=== PATIENT | female | born 1960 | race Caucasian/White ===

== ENCOUNTER 2025-02-17 05:28 | Emergency (ER) | payer MEDICAID, SELFPAY ==
[~2025-02-17] VITALS: Ht 165.1 cm; Wt 74.8 kg
--- NOTE | 2025-02-17 06:51 | ED.PDOC ---
Musculoskeletal HPI Comments A 65 YEAR OLD FEMALE PRESENTS TO THE ED WITH COMPLAINT OF RIGHT 4TH AND 5TH TOE PAIN. PATIENT STATES SHE WAS WALKING IN NOSE 2 WEEKS AGO AND SHE ACCIDENTALLY HIT HER RIGHT 4TH AND 5TH TOE ON A METAL POLE IN HER HOUSE. PATIENT REPORTS SHE IS NOW EXPERIENCING PAIN AND SWELLING TO HER RIGHT 4TH AND 5TH TOE. PATIENT DENIES FEVER, CHILLS, SHORTNESS OF BREATH, CHEST PAIN, ABDOMINAL PAIN, NAUSEA, VOMITING, HEADACHE, OR OTHER COMPLAINTS. NO OTHER SYMPTOMS OR MODIFYING FACTORS AT THIS TIME. PATIENT IS ALERT, ORIENTED X 4, AND HAS STEADY GAIT. Chief Complaint: Lower Extremity Time Seen by MD: 06:29 Primary Care Provider: AZAEL FARLEY Reviewed Notes: Nurses Notes, Medications, Allergies Allergies: Coded Allergies: Tetanus Toxoid (Verified Allergy, Unknown, 03/25/15) Uncoded Allergies: LATEX BANDAIDS (Allergy, Unknown, 03/25/15) Home Meds Active Scripts Ibuprofen (Ibuprofen) 800 Mg Tab, 1 TAB PO TID, #30 TAB Prov:FAUSTINA CHAVARRIA 02/17/25 Information Source: Patient Mode of Arrival: Ambulatory Location: Right Extremity Location: Foot, Little Toe, Toe 4 Timing: Weeks Prehospital treatment: None Severity: Moderate Able to Move Extremity: Yes Bear Weight: Fully Pain: Moderate Mechanism: Blunt Trauma Circumstances: Accident Onset of Symptoms: After Trauma Symptoms: Swelling, Pain DVT Risk Factors: NONE Last Tetanus: UTD, Unknown Associated signs and symptoms: None Past Medical History PAST MEDICAL HISTORY: Denies Surgical History: Appendectomy, Hysterectomy, Tonsillectomy DIRECTOR ADVANCED History: No Pertinent DIRECTOR ADVANCED History Family History Family History: Reviewed,noncontributory to illness Social History Smoker: Cigarettes Alcohol: Denies ETOH Use Drugs: Denies Drug Use Lives In: Home Constitutional: denies: chills, diaphoresis, fatigue, fever, malaise, sweats, weakness, others EENTM: denies: blurred vision, double vision, ear bleeding, ear discharge, ear drainage, ear pain, ear ringing, eye pain, eye redness, hearing loss, mouth pain, mouth swelling, nasal discharge, nose bleeding, nose congestion, nose pain, photophobia, tearing, throat pain, throat swelling, voice changes, others Respiratory: denies: cough, hemoptysis, orthopnea, SOB at rest, shortness of breath, SOB with excertion, stridor, wheezing, others Cardiovascular: denies: chest pain, dizzy spells, diaphoresis, Dyspnea on exertion, edema, irregular heart beat, left arm pain, lightheadedness, palpitations, PND, syncope, others Gastrointestinal: denies: abdomen distended, abdominal pain, blood streaked bowels, constipated, diarrhea, dysphagia, difficulty swallowing, hematemesis, melena, nausea, poor appetite, poor fluid intake, rectal bleeding, rectal pain, vomiting, others Genitourinary: denies: abnormal vagina bleeding, burning, dyspareunia, dysuria, flank pain, frequency, hematuria, incontinence, pain, , vagina discharge, urgency, others Neurological: denies: dizziness, fainting, headache, left sided numbness, left sided weakness, numbness, paresthesia, pre-existing deficit, right sided numbness, right sided weakness, seizure, speech problems, tingling, tremors, weakness, others Musculoskeletal: reports: others (RIGHT 4TH AND 5TH TOE PAIN WITH SWELLING); denies: back pain, gout, joint pain, joint swelling, muscle pain, muscle stiffness, neck pain Integumetry: reports: bruises; denies: change in color, change in hair/nails, dryness, laceration, lesions, lumps, rash, wounds, others Allergic/Immunocompromised: denies: Difficulty Healing, Frequent Infections, Hives, Itching, others Hematologic/Lymphatic: denies: anemia, blood clots, easy bleeding, easy bruising, swollen glands, others Endocrine: denies: excessive hunger, excessive sweating, excessive thirst, excessive urination, flushing, intolerance to cold, intolerance to heat, unexplained weight gain, unexplained weight loss, others Psychiatric: denies: anxiety, bipolar disorder, depression, hopeless, panic disorder, schizophrenia, sleepless, suicidal, others All Other Systems: Reviewed and Negative Physical Exam General Appearance: No Apparent Distress, Normal HEENT: Normal ENT Inspection, PERRL/EOMI, Pharynx Normal, TMs Normal Neck: Full Range of Motion, Non-Tender, Normal, Normal Inspection Respiratory: Chest Non-Tender, Lungs Clear, No Accessory Muscle Use, No Respiratory Distress, Normal Breath Sounds Cardiovascular: No Edema, No JVD, No Murmur, No Gallop, Normal Peripheral Pulses, Regular Rate/Rhythm Breast Exam: Deferred Gastrointestinal: No Organomegaly, Non Tender, No Pulsatile Mass, Normal Bowel Sounds, Soft Genitalia: Deferred Pelvic: Deferred Rectal: Deferred Extremities: Decreased range of motion, No calf tenderness, Normal capillary refill, No pedal edema, Swelling (BONY TENDERNESS AND CONTUSION ON RIGHT 4TH/5TH TOES, NO DEFORMITY. ), Tender (SWELLING AND CONTUSION ON RIGHT 4TH/5TH TOES, NO OPEN WOUND AND DEFORMITY. ) Musculoskeletal : Apperance: Normal Neurologic: Alert, planer stone II-XII nml as Tested, No Motor Deficits, Normal Affect, Normal Mood, No Sensory Deficits Cerebellar Function: Normal Reflexes: Normal Skin: Bruises (AND SWELLING ON RIGHT 4TH/5TH TOES. ), Dry, Normal Color, Warm Peripheral Pulses: 2+ carotid (R), 2+ carotid (L), 2+ dorsalis pedis (R), 2+ dorsalis pedis (L) Lymphatic: No Adenopathy Was a procedure done? Was a procedure done?: No Differential Diagnosis EXT Differential Diagnosis: Fracture, Sprain, Dislocation, DJD, Contusion, Strain, Arthritis, Bursitis X-Ray, Labs, Meds, VS Vital Signs Date Time Temp Pulse Resp B/P (MAP) Pulse Ox O2 Delivery O2 Flow Rate FiO2 02/17/25 05:36 97.8 83 20 152/62 94 97.8 X-Ray, Labs, Meds, VS Comment EXTERNAL MEDICAL RECORDS REVIEWED: [NONE] INDEPENDENT HISTORIANS: [NONE] SOCIAL DETERMINANTS OF HEALTH: [NONE] LABS ORDERED: NONE REVIEWED AND INTERPRETED RESULTS: NONE IMAGING ORDERED: XR FOOT RT: [INTERPRETED BY ME. NONDISPLACED FRACTURE OF 5TH DISTAL PHALANX. NO DISLOCATION SEEN. PENDING RADIOLOGY REVIEW.] TREATMENTS ORDERED: POSTOPERATIVE SHE WILL APPLIED TO PATIENT'S RIGHT FOOT. PROCEDURES PERFORMED: NONE CRITICAL CARE TIME: NONE I HAVE DISCUSSED THE PATIENT WITH THE ATTENDING PHYSICIAN DR. CASTILLO AND HE AGREES WITH THE PATIENT'S PLAN OF CARE AND DISPOSITION. BASED ON HISTORY OF PRESENT ILLNESS, AND PHYSICAL EXAM, PATIENT WILL BE DISCHARGED HOME. DISCUSSED PLAN FOR DISCHARGE HOME WITH RX [IBUPROFEN 800 MG]. MEDICATION WARNINGS GIVEN. SHARED DECISION MAKING: DISCUSSED WITH PATIENT THAT THEIR WORKUP WAS NORMAL. PATIENT INSTRUCTED TO FOLLOW UP WITH PRIMARY CARE PROVIDER IN 1-2 DAYS FOR RE- EVALUATION OF SYMPTOMS. PATIENT VERBALIZES UNDERSTANDING TO RETURN TO ED FOR NEW OR WORSENING SYMPTOMS OR IF FOLLOW UP WITH PCP CANNOT BE OBTAINED. PATIENT FEELS COMFORTABLE GOING HOME AT THIS TIME. ALL QUESTIONS ADDRESSED AT TIME OF DISCHARGE. Images Reviewed?: Images reviewed and evaluated by me Time of 1ST Reevaluation: 07:20 Reevaluation 1ST: Improved Patient Education/Counseling: Diagnosis, Treatment, Need For Follow Up Family Education/Counseling: Diagnosis, Treatment, Need For Follow Up Medical Screening: No EMC Exist At This Time Departure 1 Departure Time of Disposition: 07:20 Impression: Primary Impression: Closed fracture of fifth toe of right foot Qualified Codes: S92.501A - Displaced unspecified fracture of right lesser toe(s), initial encounter for closed fracture Disposition: HOME / SELF CARE / HOMELESS Condition: Stable Additional Instructions: FOLLOW-UP WITH PCP IN 1 TO 2 DAYS. TAKE MEDICATIONS PRESCRIBED. RETURN TO ED FOR ANY NEW OR WORSENING SYMPTOMS. e-Prescriptions Ibuprofen (Ibuprofen) 800 Mg Tab 1 TAB PO TID, #30 TAB Prov: FAUSTINA CHAVARRIA 02/17/25 Discharged With: Self, Spouse Critical Care Note Critical Care Time?: No Stability Stability form required: No I personally scribed for FAUSTINA CHAVARRIA ([email or web address]) on 02/17/25 at 06:51. Electronically submitted by Srikanth Padilla ([email or web address]). I personally scribed for FAUSTINA CHAVARRIA ([email or web address]) on 02/17/25 at 07:09. Electronically submitted by Srikanth Padilla ([email or web address]). FAUSTINA CHAVARRIA Feb 17, 2025 06:51
[2025-02-17] MEDS ORDERED: IBUP-1456 PO (07:07)
--- NOTE | 2025-02-17 07:15 | DVH ---
CLINICAL INFORMATION: 65 years old, Female; right 4th/5th toe pain post injury 2 weeks ago. TECHNIQUE: 3 views of the right foot were obtained. COMPARISON: None FINDINGS: No acute fracture or dislocation. There is a bipartite tibial sesamoid. Adjacent soft tissu es are unremarkable. IMPRESSION: No evidence of acute bony abnormality.
[2025-02-17 07:20] VITALS: BP 132/70; TEMP 98
[2025-02-17 07:24] VITALS: PULSE 76; RESP 18; O2SAT 94
[2025-02-17] MEDS: IBUPROFEN 800 MG TAB PO ONE (07:24)
== END 2025-02-17 07:32 | disposition home or self-care (01) ==
LOC: ER 05:31
DX: S92.501A Displaced unspecified fracture of right lesser toe(s), initial encounter for closed fracture (principal); F17.210 Nicotine dependence, cigarettes, uncomplicated; Z91.040 Latex allergy status; Z90.710 Acquired absence of both cervix and uterus; Z90.49 Acquired absence of other specified parts of digestive tract; Z88.7 Allergy status to serum and vaccine; W22.8XXA Striking against or struck by other objects, initial encounter; Y93.01 Activity, walking, marching and hiking; Y92.89 Other specified places as the place of occurrence of the external cause; Y99.8 Other external cause status
CPT/HCPCS: 73630

== ENCOUNTER 2025-02-19 20:52 | Inpatient (IN) | payer SELFPAY ==
[~2025-02-19] VITALS: Ht 165.1 cm; Wt 75.0 kg
[~2025-02-19 20:52] MED LIST: IBUP-1456 PO
--- NOTE | 2025-02-19 21:07 | ED.PDOC ---
HPI Comments 65-year-old female who came to ER via EMS for chest pains. Patient has a history of hypertension and diabetes. Around 12 noon today, started experiencing midsternal chest pains, pressure, constant, nonradiating, 8/10 intensity. Persistence prompted patient to come to the ER. She took 325mg of her own aspirin at home. REVIEW OF SYSTEMS: General: No fever, no chills, or fatigue HEENT: No sore throat, no earache, no congestion, no neck pain. Cardiac: Positive chest pain. No palpitations. Lungs: No shortness of breath, no cough. GI: No nausea, no vomiting, no diarrhea, no constipation, no abdominal pain : No dysuria, frequency, or urgency. No hematuria. Musculoskeletal: No joint pain , no joint swelling, no extremity edema. Positive toe injury Skin: No rash, no itching. Neuro: No headache, no dizziness, no weakness PHYSICAL EXAM: General: Awake, alert and oriented. No acute distress. Skin: Skin in warm, dry and intact. Appropriate color for ethnicity. HEENT: The head is normocephalic and atraumatic. Conjunctivae are clear without exudates or hemorrhage. Sclera is non-icteric. EOM are intact. No signs of nystagmus. Eyelids are normal in appearance without swelling or lesions. Oral mucosa is pink and moist Neck: The neck is supple with normal range of motion. No JVD. Cardiac: Heart rate and rhythm are normal. No murmurs, gallops, or rubs are auscultated. Respiratory: No signs of respiratory distress. Lung sounds are clear in all lobes bilaterally without rales, rhonchi, or wheezes. Abdominal: Abdomen is soft, non-tender without distention, guarding or rigidity. Bowel sounds are present and normoactive in all four quadrants. Extremities: Upper and lower extremities are atraumatic in appearance without deformity or edema. Neurological: The patient is awake, alert and oriented to person, place, and time with normal speech. Speech is clear. There is no facial asymmetry. Psychiatric: Appropriate mood and affect. Good judgement and insight. 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 Allergies: Coded Allergies: Tetanus Toxoid (Verified Allergy, Unknown, 03/25/15) Uncoded Allergies: LATEX BANDAIDS (Allergy, Unknown, 03/25/15) Home Meds Active Scripts Ibuprofen (Ibuprofen) 800 Mg Tab, 1 TAB PO TID, #30 TAB Prov:YOJANA CHAVARRIANafisa FRANCO 02/17/25 Information Source: Patient, Emergency Med Personnel Mode of Arrival: EMS Severity: Moderate Timing: Hours Duration: Since onset Prehospital treatment: 12 Lead EKG, ASA, NTG, Oxygen Location: Substernal Radiation: No Radiation Quality: Pressure Cardiac Risk Factors: Hyperlipidemia, HTN, Diabetes Past Medical History PAST MEDICAL HISTORY: DM, High Lipids, HTN Past Medical History (Other): Leukemia Surgical History: Appendectomy, Hysterectomy, Tonsillectomy BUSINESS CONTINUITY STRATEGY DIRECTOR History: No Pertinent BUSINESS CONTINUITY STRATEGY DIRECTOR History Family History Family History: Reviewed,noncontributory to illness Social History Smoker: Cigarettes Alcohol: Denies ETOH Use Drugs: Denies Drug Use Lives In: Home EKG EKG : Pulse Rate (adult): 94 Cardiac Rhythm: NSR Hypertrophy: LVH ST: New, Ant, Lat, Infarct Comments STEMI. ST elevations in II, III, aVF, V2, V3, V4, V5, V6 Was a procedure done? Was a procedure done?: No CP Differential Dx Differential Diagnosis: Angina, Anxiety / Panic Attack, ND, V-Tach, Other Differential Diagnosis: Angina, Chest Wall Pain, Costochondritis, Esophageal reflux/spasm, Gastritis, Myocardial Infarction, Pneumonia, Other X-Ray, Labs, Meds, VS Vital Signs Date Time Temp Pulse Resp B/P (MAP) Pulse Ox O2 Delivery O2 Flow Rate FiO2 02/19/25 21:26 91 19 96 Nasal Cannula* 3 32 02/19/25 21:23 91 18 125/90 02/19/25 21:07 94 02/19/25 21:05 98.2 90 20 135/73 (93) 96 98.2 02/19/25 20:57 98.2 91 21 125/80 (95) 94 98.2 02/19/25 20:54 94 02/19/25 20:52 98.7 95 18 148/92 94 98.7 Lab Test 02/19/25 21:41 02/19/25 20:59 Range/Units Troponin I High Sensitivity 4123 *H 2942 *H </=34 ng/L White Blood Count 39.1 *H 4.4-10.8 10^3/uL Red Blood Count 5.56 H 4.0-5.20 10^6/uL Hemoglobin 15.4 12.2-16.2 g/dL Hematocrit 46.7 H 36.0-46.0 % Mean Corpuscular Volume 83.9 80.0-100.0 fL Mean Corpuscular Hemoglobin 27.7 L 28.0-32.0 pg Mean Corpuscular Hemoglobin Concent 33.0 32.0-36.0 g/dL Red Cell Distribution Width 15.2 H 11.8-14.3 % Platelet Count 306 140-450 10^3/uL Mean Platelet Volume 7.4 6.9-10.8 fL Neutrophils (%) (Auto) 37.0-80.0 % Lymphocytes (%) (Auto) 10.0-50.0 % Monocytes (%) (Auto) 0.0-12.0 % Basophils (%) (Auto) 0.0-2.0 % Neutrophils # (Auto) 1.6-8.6 10 ^3/uL Lymphocytes # (Auto) 0.4-5.4 10 ^3/uL Monocytes # (Auto) 0-1.3 10 ^3/uL Differential Total Cells Counted 100.0 100 Neutrophils % (Manual) 20 L 37.0-80.0 Band Neutrophils % (Manual) 1 Lymphocytes % (Manual) 76 H 10.0-50.0 Monocytes % (Manual) 2 0-12 Eosinophils % (Manual) 1 0-7 Basophils % (Manual) 0 0.0-2.0 Metamyelocytes % (manual) 0 Myelocytes % (Manual) 0 Promyelocytes % (Manual) 0 Blast Cells % (Manual) 0 Reactive Lymphocytes 0 Smudge Cells 47 /100 WBC Platelet Estimate [place] Large Platelets Few Anisocytosis (manual) Slight Microcytosis Slight Macrocytosis Slight Prothrombin Time 10.3 9.3-11.8 sec Prothrombin Time INR 0.97 0.9-1.15 Activated Partial Thromboplast Time 25.9 24.5-34.5 SEC Sodium Level 134 L 136-145 mmol/L Potassium Level 4.3 3.5-5.1 mmol/L Chloride Level 99 98-107 mmol/L Carbon Dioxide Level 27 20-31 mmol/L Anion Gap 8 5-15 Blood Urea Nitrogen 9 9-23 mg/dL Creatinine 0.88 0.550-1.02 mg/dL Glomerular Filtration Rate Calc 73 >90 mL/min BUN/Creatinine Ratio 10.2 10.0-20.0 Serum Glucose 302 H 74-106 mg/dL Hemoglobin A1c 12.1 H <5.7 % A1C Lactic Acid Level Pending Calcium Level 9.6 8.7-10.4 mg/dL Phosphorus Level 3.8 2.4-5.1 mg/dL Magnesium Level 1.8 1.6-2.6 mg/dL Total Bilirubin Pending Direct Bilirubin Pending Aspartate Amino Transferase (AST) Pending Alanine Aminotransferase (ALT) Pending Alkaline Phosphatase Pending B-Type Natriuretic Peptide 122.43 0-100 pg/mL Total Protein Pending Albumin Pending Triglycerides Level 421 H < 150 mg/dL Cholesterol Level 218 H < 200 mg/dL LDL Cholesterol < 100 mg/dL HDL Cholesterol 43 40-59 mg/dL Vitamin B12 Level Pending Vitamin D 25-Hydroxy Pending Thyroid Stimulating Hormone (TSH) Pending Current Medications Medications (Trade) Dose Ordered Sig/Scott Route Start Time Stop Time Status Last Admin Morphine Sulfate 2 mg ONCE ONCE IV 02/19/25 21:00 02/19/25 21:01 DC 02/19/25 21:23 Heparin Sodium (Porcine) 5,000 units ONCE ONCE IV 02/19/25 21:00 02/19/25 21:01 DC 02/19/25 21:23 Time of 1ST Reevaluation: 21:04 Reevaluation 1ST: Unchanged Patient Education/Counseling: Need For Follow Up Family Education/Counseling: No Family Present SEPSIS Sepsis Screen Physician Orders Chest Xray 1 View (02/19/25 20:53) Vital Signs Q1HR (02/19/25 20:53) Saline Lock (02/19/25 20:53) Sql Etl Developer (02/19/25 ) Electrocardigram (02/19/25 21:53) Electrocardigram (02/19/25 23:53) Cl Left Heart Cath (02/19/25 21:25) Vital Signs Date Time Temp Pulse Resp B/P (MAP) Pulse Ox O2 Delivery O2 Flow Rate FiO2 02/19/25 21:26 91 19 96 Nasal Cannula* 3 32 02/19/25 21:23 91 18 125/90 02/19/25 21:07 94 02/19/25 21:05 98.2 90 20 135/73 (93) 96 98.2 02/19/25 20:57 98.2 91 21 125/80 (95) 94 98.2 02/19/25 20:54 94 02/19/25 20:52 98.7 95 18 148/92 94 98.7 Laboratory Tests Test 02/19/25 20:59 Lactic Acid Level Pending White Blood Count 39.1 10^3/uL (4.4-10.8) *H Medications Medications Dose Ordered Sig/Scott Route Start Time Stop Time Status Last Admin Dose Admin Heparin Sodium (Porcine) 5,000 units ONCE ONCE IV 02/19/25 21:00 02/19/25 21:01 DC 02/19/25 21:23 Morphine Sulfate 2 mg ONCE ONCE IV 02/19/25 21:00 02/19/25 21:01 DC 02/19/25 21:23 Departure 1 Departure Time of Disposition: 21:36 Impression: Primary Impression: STEMI (ST elevation myocardial infarction) Disposition: ADMITTED INPATIENT Condition: Serious Comments 65 year old female with inferior lateral STEMI. Code STEMI called promptly after patient's arrival to the ED. Patient stabilized in the ED and sent to cardiac catheterization lab. Extensive evaluation was performed in attempt to identify or rule out: (See differential diagnosis section) The following tests were ordered, and results were reviewed by me and discussed with patient: (See diagnostic results section) The following test were independently interpreted by me: EKG, CXR I reviewed and agreed with the following test results read by other providers: CXR I reviewed the following notes from the pt's past medical encounters: Recent encounter for toe fracture Additional information was gathered from interviewing the following independent historians: EMS personnel Discussion of management or test interpretation with external physician/other qualified health rn primary care: Dr. Grier Addressed an acute or chronic illness that poses a threat to life or bodily function: Acute STEMI Decision regarding hospitalization or escalation of hospital level of care: Risk and benefits of admission for further treatment of patient's condition was considered. Due to patient's current clinical condition, high risk of decline and poor outcome if discharged and need for further inpatient management and monitoring, patient will be admitted to the hospital. Discussed with patient. Drug therapy requiring intensive monitoring for toxicity: IV heparin Parenteral controlled substances: IV morphine Decision regarding emergency major surgery: Yes-emergent cardiac catheterization Critical Care Note Critical Care Time?: Yes (45 min-critical care time only) Critical care comment: STEMI Stability Stability form required: No Heart Score Heart Score: Heart Score Response (Comments) Value History Moderate Suspicious [address]-Deviation 2 Age >65 2 Risk Factors >3 or Hx ASHD 2 Troponin >3 x's Normal limit 2 Total 9 I personally scribed for SURYA RIVERO MD ([email or web address]) on 02/19/25 at 21:07. Electronically submitted by Wilmer Garcia ([email or web address]). I personally scribed for SURYA RIVERO MD ([email or web address]) on 02/19/25 at 21:44. Electronically submitted by Wilmer Garcia ([email or web address]). SURYA RIVERO MD Feb 19, 2025 21:07
[2025-02-19 21:11] LABS: Hematocrit 46.7 % (36.0-46.0); Hemoglobin 15.4 g/dL (12.2-16.2); Mean Corpuscular Hemoglobin 27.7 pg (28.0-32.0); Mean Corpuscular Volume 83.9 fL (80.0-100.0)
--- NOTE | 2025-02-19 21:20 | ECG ---
[facility] Test Date: 2025-02-19 Test Time: 20:54:30 Pat Name: SUMEET BARRIGA Department: Room: 0261 Gender: F [employer] Manager: ELIAN : 1960 Requested By: SURYA RIVERO Order Number: [id number] Reading MD: Roberto Giles Measurements Intervals [place] Rate: 94 P: 29 ID: [id number] QRS: 26 QRSD: 97 T: 62 QT: 356 QTc: 446 Interpretive Statements Sinus rhythm Anterolateral infarct, acute (LAD) Electronically Signed On 02-21-2025 19:17:38 PDT by Roberto Giles Please click the below link to view image of tracing.
[2025-02-19] MEDS: HEPARIN SODIUM (PORCINE) 5000 UNITS/ML 1ML VIAL IV ONE (21:23)
[2025-02-19] MEDS: MORPHINE SULFATE INJ 2 MG/ml SYRG IV ONE (21:23)
[2025-02-19 21:24] LABS: Chloride 99 mmol/L (98-107); Potassium 4.3 mmol/L (3.5-5.1)
[2025-02-19 21:25] LABS: Anion Gap 8 (5-15); Carbon Dioxide 27 mmol/L (20-31)
[2025-02-19 21:26] VITALS: PULSE 91; RESP 19; O2SAT 96
[2025-02-19 21:26] LABS: Calcium 9.6 mg/dL (8.7-10.4)
[2025-02-19 21:27] LABS: Sodium 134 mmol/L (136-145)
--- NOTE | 2025-02-19 21:28 | DVH ---
CHEST RADIOGRAPH Indication: cp Technique: Single frontal view of the chest was obtained COMPARISON: None FINDINGS: Lines and Tubes: None Lungs: Clear Pleura: No effusion. No pneumothorax. Cardiomediastinal contours: Unremarkable Bones: Unremarkable IMPRESSION: 1. No acute disease.
[2025-02-19 21:31] LABS: BUN/Creatinine Ratio 10.2 (10.0-20.0); Blood Urea Nitrogen 9 mg/dL (9-23)
[2025-02-19 21:33] LABS: Glucose 302 mg/dL (74-106)
[2025-02-19] MEDS: ANGIOMAX 250 MG VIAL IV ONE ×2 (21:34→22:48)
[2025-02-19] MEDS: fentaNYL CITRATE 100 MCG/2 ML VL ONE (21:34)
[2025-02-19] MEDS: IODIXANOL 320MG/ML 100ML BTL IV ONE (21:35)
[2025-02-19] MEDS: LIDOCAINE 2%HCL (LOCAL ANESTH.) INJ 20ML MDV ONE (21:35)
[2025-02-19] MEDS: SODIUM CHL 0.9% 0 ML ONE (21:35)
[2025-02-19] MEDS: MIDAZOLAM HCL 2MG/2ML 2ml VIAL (1mg/ml) ONE (21:35)
[2025-02-19 21:47] LABS: Anisocytosis Slight; Macrocytosis Slight; Smudge Cells 47 /100 WBC; Total Cells Counted 100.0 (100)
[2025-02-19 21:54] LABS: INR 0.97 (0.9-1.15); Partial Thromboplastin Time 25.9 SEC (24.5-34.5); Prothrombin Time 10.3 sec (9.3-11.8)
[2025-02-19] MEDS: EPTIFIBATIDE INJ (2MG/ML) 10ML VIAL IV ONE (22:11)
[2025-02-19] MEDS ORDERED: NITROGLYCERIN 0.4 MG SL TAB SL PRN (22:15)
[2025-02-19] MEDS ORDERED: MORPHINE SULFATE INJ 2 MG/ml SYRG IV PRN (22:15)
[2025-02-19] MEDS ORDERED: CLOPIDOGREL BISULFATE 75 MG TAB PO ONE (22:15)
--- NOTE | 2025-02-19 22:29 | DVHHPRES ---
History of Present Illness Resident Creating Document: HANDY LANE History of Present Illness Cass Zhong this is a 65-year-old female patient who presents to ED with chief complaint of retrosternal oppressive chest pain in Functional Class IV which started at 11:00 a.m. today with intensity eight-9/10, radiating towards left ear, with no relieving factors, prompting her visit to the ED at emergency department 8:50 p.m.. Patient reports taking 325 mg of aspirin at home, with no relief of symptoms. Per patient she presented to episodes of this similar pain, two weeks back in both Sundays, which starting Functional Class II and was relieved with rest, and only lasted 1 hour both times. She denies dyspnea, palpitation, syncope in any other associated symptoms. Past medical history: Hypertension, dyslipidemia, diabetes, obesity, leukemia, recent right toe fracture with conservative treatment Surgical history: Hysterectomy, tonsillectomy Family history: Mother has breast cancer. Father has prostate cancer Social history: Lives in [place] with (next of kin) current tobacco abuse (approximately 7.5 pack-year history of smoking). Denies current alcohol and other drug abuse. Allergies: Latex and tetanus shot Home medication: Metoprolol, glipizide, atorvastatin, amlodipine, aspirin, Januvia Patient seen and examined at bedside. Currently she is postop of coronary angiography due to anterolateral STEMI, with placement of one KAYCEE in mid LAD due to complete occlusion (final report pending, right coronary artery has chronic severe disease). Past Medical History Per HPI Past Surgical History Per HPI Family History Per HPI Past Social History Per HPI Review of Systems Review of Systems Per HPI Allergies: Coded Allergies: Tetanus Toxoid (Verified Allergy, Unknown, 03/25/15) Uncoded Allergies: LATEX BANDAIDS (Allergy, Unknown, 03/25/15) Medications Current Medications Medications Dose Ordered Sig/Scott Route Start Time Stop Time Status Last Admin Dose Admin Nitroglycerin 0.4 mg Q5MINP PRN SL 02/19/25 22:15 Morphine Sulfate 2 mg Q30M PRN IV 02/19/25 22:15 Aspirin 81 mg DAILY PO 02/20/25 10:00 Atorvastatin Calcium 80 mg HS PO 02/20/25 22:00 Clopidogrel Bisulfate 75 mg DAILY PO 02/20/25 10:00 Exam Vital Signs Vital Signs Date Time Temp Pulse Resp B/P (MAP) Pulse Ox O2 Delivery O2 Flow Rate FiO2 02/19/25 21:26 91 19 96 Nasal Cannula* 3 32 02/19/25 21:23 125/90 02/19/25 21:05 98.2 98.2 Exam Patient lying in bed, in no acute distress General: Lucid, afebrile, mucosae are moist Cardiovascular: Normal S1 and S2. No murmurs, gallops or rubs Respiratory: Normal ventilation mechanics. Clear lung sounds on auscultation Abdomen: Soft, nontender, no organomegaly, normal bowel sounds MSK/skin: Mobilizes 4 limbs. Skin is dry and warm. Puncture site in right femoral with mild bleeding, no hematoma and no pain on palpation. Neurological: Oriented in 3 spheres. No motor no sensitive deficits. Pupils are isocoric and reactive Labs/Xrays Labs Test 02/19/25 21:41 02/19/25 20:59 Range/Units Troponin I High Sensitivity 4123 *H </=34 ng/L White Blood Count 39.1 *H 4.4-10.8 10^3/uL Red Blood Count 5.56 H 4.0-5.20 10^6/uL Hemoglobin 15.4 12.2-16.2 g/dL Hematocrit 46.7 H 36.0-46.0 % Mean Corpuscular Volume 83.9 80.0-100.0 fL Mean Corpuscular Hemoglobin 27.7 L 28.0-32.0 pg Mean Corpuscular Hemoglobin Concent 33.0 32.0-36.0 g/dL Red Cell Distribution Width 15.2 H 11.8-14.3 % Platelet Count 306 140-450 10^3/uL Mean Platelet Volume 7.4 6.9-10.8 fL Neutrophils (%) (Auto) 37.0-80.0 % Lymphocytes (%) (Auto) 10.0-50.0 % Monocytes (%) (Auto) 0.0-12.0 % Basophils (%) (Auto) 0.0-2.0 % Neutrophils # (Auto) 1.6-8.6 10 ^3/uL Lymphocytes # (Auto) 0.4-5.4 10 ^3/uL Monocytes # (Auto) 0-1.3 10 ^3/uL Differential Total Cells Counted 100.0 100 Neutrophils % (Manual) 20 L 37.0-80.0 Band Neutrophils % (Manual) 1 Lymphocytes % (Manual) 76 H 10.0-50.0 Monocytes % (Manual) 2 0-12 Eosinophils % (Manual) 1 0-7 Basophils % (Manual) 0 0.0-2.0 Metamyelocytes % (manual) 0 Myelocytes % (Manual) 0 Promyelocytes % (Manual) 0 Blast Cells % (Manual) 0 Reactive Lymphocytes 0 Smudge Cells 47 /100 WBC Platelet Estimate [place] Large Platelets Few Anisocytosis (manual) Slight Microcytosis Slight Macrocytosis Slight Prothrombin Time 10.3 9.3-11.8 sec Prothrombin Time INR 0.97 0.9-1.15 Activated Partial Thromboplast Time 25.9 24.5-34.5 SEC Sodium Level 134 L 136-145 mmol/L Potassium Level 4.3 3.5-5.1 mmol/L Chloride Level 99 98-107 mmol/L Carbon Dioxide Level 27 20-31 mmol/L Anion Gap 8 5-15 Blood Urea Nitrogen 9 9-23 mg/dL Creatinine 0.88 0.550-1.02 mg/dL Glomerular Filtration Rate Calc 73 >90 mL/min BUN/Creatinine Ratio 10.2 10.0-20.0 Serum Glucose 302 H 74-106 mg/dL Calcium Level 9.6 8.7-10.4 mg/dL B-Type Natriuretic Peptide 122.43 0-100 pg/mL SEPSIS Sepsis Screen Date sepsis recognized/suspect: Feb 19, 2025 Time Sepsis recognized/suspect: 2124 Recent Procedure: No On Antibiotic Therapy: No Respiratory Rate >20: No Heart Rate >90: Yes Temp<36 C (96.8 F) or >38.3 C: No SBP <90 or MAP <65 mmHG: No New Acute Mental Status Change: No Is the patient on CPAP, BIPAP,: No Physician Orders Chest Xray 1 View (02/19/25 20:53) Vital Signs Q1HR (02/19/25 20:53) Saline Lock (02/19/25 20:53) Bearing Inspector (02/19/25 ) Electrocardigram (02/19/25 21:53) Electrocardigram (02/19/25 23:53) Cl Left Heart Cath (02/19/25 21:25) Admit (02/19/25 22:03) Code Status (02/19/25 22:03) Complete Blood Count (02/20/25 04:00) Comprehensive Metabolic Panel (02/20/25 04:00) Npo (Nothing By Mouth) Diet (02/20/25 Breakfast) Echo 2d Mode Cardiac Dop (02/19/25 22:03) Nitroglycerin Sublingual (Ntrostat Subli (02/19/25 22:15) Morphine Sulfate Injection (02/19/25 22:15) Oxygen By Nasal Cannula (02/19/25 22:03) Stat Ekg For Chest Pain (02/19/25 22:03) Notify Of Changes From Base (02/19/25 22:03) Speech Language Pathologist Travel For 24 Hours (02/19/25 22:03) Emergency Dysrhythmia Protocol (02/19/25 22:03) Rhythm Strips Once Every Shift (02/19/25 22:03) Aspirin Tablet (02/20/25 10:00) Atorvastatin (Lipitor) (02/20/25 22:00) Clopidogrel Bisulfate (Plavix) (02/20/25 10:00) Vitamin D, 25-Hydroxy (02/19/25 22:11) Vitamin B12 (02/19/25 22:11) Urinalysis (02/19/25 22:11) Phosphorus (02/19/25 22:11) Thyroid Stimulating Hormone (02/19/25 22:11) Magnesium (02/19/25 22:11) Lipid Panel (02/19/25 22:11) Lactic Acid W/ Reflex Order (02/19/25 22:11) Hemoglobin A1c (02/19/25 22:11) Drug Screen (02/19/25 22:11) Troponin-I Hs (02/20/25 04:00) Vital Signs Date Time Temp Pulse Resp B/P (MAP) Pulse Ox O2 Delivery O2 Flow Rate FiO2 02/19/25 21:26 91 19 96 Nasal Cannula* 3 32 02/19/25 21:23 91 18 125/90 02/19/25 21:07 94 02/19/25 21:05 98.2 90 20 135/73 (93) 96 98.2 02/19/25 20:57 98.2 91 21 125/80 (95) 94 98.2 02/19/25 20:54 94 02/19/25 20:52 98.7 95 18 148/92 94 98.7 Laboratory Tests Test 02/19/25 20:59 Lactic Acid Level Pending White Blood Count 39.1 10^3/uL (4.4-10.8) *H Medications Medications Dose Ordered Sig/Scott Route Start Time Stop Time Status Last Admin Dose Admin Heparin Sodium (Porcine) 5,000 units ONCE ONCE IV 02/19/25 21:00 02/19/25 21:01 DC 02/19/25 21:23 5,000 UNITS Morphine Sulfate 2 mg ONCE ONCE IV 02/19/25 21:00 02/19/25 21:01 DC 02/19/25 21:23 2 MG Assessment/Plan Assessment/Plan Anterolateral STEMI (Prachi Mccarthy Patient delayed time: 9 hours and 50 minutes, door balloon time: 20 minutes, total ischemia time: 10 hours and 10 minutes) Acute respiratory failure secondary to decompensated CHF [place] decompensated congestive heart failure (unknown LVEF) EKG completed at 8:54 p.m. which showed anterolateral STEMI. Cardiology consulted: Initiated code STEMI. Completed coronary angiography to mid LAD with one KAYCEE (pending final report), procedure completed via right femoral access. Dr. Grier recommended IV antibiotic (cefepime), also recommended evaluation by supervisor chassis assembly due to uncontrolled diabetes. Patient currently on DAPT (aspirin and ticagrelor), atorvastatin and metoprolol Ordered echocardiogram Patient has prolonged total ischemia time, has high-risk of electrical and mechanical complications. Explained in detail to patient these complications, she is currently ICU status. Patient currently on IV furosemide 40 mg b.i.d. Chronic lymphocytic leukemia Leukemoid reaction Patient presents 47 smudge cells, predominant lymphocytic presented (76%) Ordered peripheral smear Transaminitis Monitor Continue with the atorvastatin (discontinue if patient presents symptoms x3 elevation of LFTs or asymptomatic and x5 elevation of LFTs) Recent right hallux fracture Optimize pain management Hypertension Dyslipidemia Diabetes-uncontrolled (hemoglobin A1c 12.1%) Currently indicated Lantus and insulin sliding scale On metoprolol and atorvastatin Gave advice on healthy lifestyle habits Obesity Patient is obese. Recommend evaluating BMI (unlikely 19.6). Have informed nurse Current tobacco abuse Patient has 7.5 pack-year history of smoking. Counseled strongly on cessation Goals of care discussed with patient for over 18 minutes: Full code status Discussed plan with Dr. Yip, patient and nurses: Currently in ICU status, she is at high-risk of electrical and mechanical complications due to prolonged time IV ischemia. She is currently status post PCI with one KAYCEE to mid LAD. Patient has poor prognosis Plan discussed with: Patient, Other (Nurses) My Orders Orders - HANDY LANE RESIDENT Procedure Category Date Status Time Admit ADMIT 02/19/25 Transmitted 22:03 Code Status CODE 02/19/25 Transmitted 22:03 Complete Blood Count LAB 02/20/25 Verified 04:00 Comprehensive LAB 02/20/25 Verified Metabolic Panel 04:00 Npo (Nothing By DIET 02/20/25 Transmitted Mouth) Diet Breakfast Echo 2d Mode Cardiac US 02/19/25 Logged DOP 22:03 Nitroglycerin PHA 02/19/25 In Process Sublingual (Ntrostat 22:15 Morphine Sulfate PHA 02/19/25 In Process Injection 22:15 Oxygen By Nasal RT 02/19/25 Transmitted Cannula 22:03 Stat Ekg For Chest ANAYA 02/19/25 In Process Pain 22:03 Notify Md Of Changes ANAYA 02/19/25 In Process From Base 22:03 Speech Language Pathologist Travel For ANAYA 02/19/25 In Process 24 Hours 22:03 Emergency Dysrhythmia ANAYA 02/19/25 In Process Protocol 22:03 Rhythm Strips Once ANAYA 02/19/25 In Process Every Shift 22:03 Aspirin Tablet PHA 02/20/25 In Process 10:00 Atorvastatin (Lipitor) PHA 02/20/25 In Process 22:00 Clopidogrel Bisulfate PHA 02/20/25 In Process (Plavix) 10:00 Vitamin D, 25-Hydroxy LAB 02/19/25 In Process 22:11 Vitamin B12 LAB 02/19/25 In Process 22:11 Urinalysis LAB 02/19/25 Logged 22:11 Phosphorus LAB 02/19/25 In Process 22:11 Thyroid Stimulating LAB 02/19/25 In Process Hormone 22:11 Magnesium LAB 02/19/25 In Process 22:11 Lipid Panel LAB 02/19/25 In Process 22:11 Lactic Acid W/ Reflex LAB 02/19/25 In Process Order 22:11 Hemoglobin A1c LAB 02/19/25 In Process 22:11 Drug Screen LAB 02/19/25 Logged 22:11 Troponin-I Hs LAB 02/20/25 Verified 04:00 Date of Service: Feb 19, 2025 Billing Provider: JAMIE YIP MD Common Visit Codes: 75021-HVNBABG INP/OBS CARE (HIGH) Secondary Visit Codes: 25725-ALSBTWRG CARE PLAN [address] RESIDENT Feb 19, 2025 22:29
[2025-02-19 22:38] LABS: Magnesium 1.8 mg/dL (1.6-2.6)
[2025-02-19 22:40] LABS: HDL Cholesterol 43 mg/dL (40-59)
[2025-02-19 22:47] LABS: Cholesterol 218 mg/dL (< 200); Triglycerides 421 mg/dL (< 150)
[2025-02-19] MEDS: SODIUM CHL 0.9% 50 ML ONE (22:48)
[2025-02-19] MEDS: TICAGRELOR 90 MG TAB ONE (22:49)
[2025-02-19 22:56] LABS: Alanine Aminotransferase 21 U/L (7-40); Albumin 4.5 g/dL (3.2-4.8); Bilirubin, Total 0.4 mg/dL (0.2-1.0); Total Protein 7.3 g/dL (5.7-8.2)
[2025-02-19 23:01] LABS: Alkaline Phosphatase 200 U/L (46-116); Bilirubin, Direct < 0.1 mg/dL (<0.3)
[2025-02-19] MEDS ORDERED: DEXTROSE (50%) 50ML SYRG IV PRN (23:30)
[2025-02-19] MEDS ORDERED: TICAGRELOR 90 MG TAB PO ONE (23:30)
[2025-02-19 23:46] VITALS: BP 143/82; PULSE 87; RESP 18; TEMP 98; O2SAT 92
[2025-02-20] VITALS (81 sets, daily range): BP systolic 91–164; BP diastolic 46–89; PULSE 78–109; RESP 9–27; TEMP 97.8–99; O2SAT 91–99
--- NOTE | 2025-02-20 | DVHINCON2 ---
Date of service: Feb 19, 2025 Referring Physician Loreta Reason for Consultation STEMI History of Present Illness This is a 65-year-old female with a PMH of DM, High Lipids, HTN who presented to the ED via EMS with complaints of chest pain. Around 12 noon today, started experiencing midsternal chest pains, pressure, constant, nonradiating, 8/10 intensity. Patient took 325mg of her own aspirin at home. WBC 39.1,AST 50, TROP 4123. Chest x-ray showed NAD. EKG consistent with STEMI. Code STEMI was called and I evaluated the patient at bedside within a few minutes. Patient will emergently be taken to label drier and admitted to the ICU. Allergies: Coded Allergies: Tetanus Toxoid (Verified Allergy, Unknown, 03/25/15) Uncoded Allergies: LATEX BANDAIDS (Allergy, Unknown, 03/25/15) Home Meds Active Scripts Ibuprofen (Ibuprofen) 800 Mg Tab, 1 TAB PO TID, #30 TAB Prov:FAUSTINA CHAVARRIA 02/17/25 Current Medications Current Medications Medications (Trade) Dose Ordered Sig/Scott Route PRN Reason Start Time Stop Time Status Last Admin Nitroglycerin (Ntrostat Sublingual) 0.4 mg Q5MINP PRN SL FOR CHEST PAIN 02/19/25 22:15 Morphine Sulfate 2 mg Q30M PRN IV FOR CHEST PAIN 02/19/25 22:15 Aspirin 81 mg DAILY PO 02/20/25 10:00 Atorvastatin Calcium (Lipitor) 80 mg HS PO 02/20/25 22:00 Clopidogrel Bisulfate (Plavix) 75 mg DAILY PO 02/20/25 10:00 02/19/25 23:34 DC Ticagrelor (Brilinta) 90 mg BID PO 02/20/25 10:00 UNV Metoprolol Succinate (Toprol Xl) 25 mg DAILY PO 02/20/25 10:00 UNV Cefepime HCl 50 ml @ 12.5 mls/hr Q8HR IV 02/20/25 06:00 UNV Pantoprazole Sodium (Protonix) 40 mg DAILY IV 02/20/25 10:00 UNV Diagnostic Test (Pha) (Accu-Chek Comfort Curve T) 1 strip ACHS 02/20/25 07:00 UNV Insulin Human Regular (InsuLIN R) HS SC 02/20/25 22:00 UNV Insulin Human Regular (InsuLIN R) AC SC 02/20/25 07:00 UNV Dextrose 50 ml UD PRN IV Blood Sugar LESS THAN 60 02/19/25 23:30 UNV Review of Systems General: No fever, no chills, or fatigue HEENT: No sore throat, no earache, no congestion, no neck pain. Cardiac: Positive chest pain. No palpitations. Lungs: No shortness of breath, no cough. GI: No nausea, no vomiting, no diarrhea, no constipation, no abdominal pain : No dysuria, frequency, or urgency. No hematuria. Musculoskeletal: No joint pain , no joint swelling, no extremity edema. Positive toe injury Skin: No rash, no itching. Neuro: No headache, no dizziness, no weakness Vital Signs Vital Signs Date Time Temp Pulse Resp B/P (MAP) Pulse Ox O2 Delivery O2 Flow Rate FiO2 02/19/25 21:26 91 19 96 Nasal Cannula* 3 32 02/19/25 21:23 125/90 02/19/25 21:05 98.2 98.2 Physical Exam GENERAL: Alert and oriented x 3. No acute distress. EYES: PERRL, EOMI. Anicteric. HENT: Moist mucous membranes. LUNGS: Clear to auscultation bilaterally. CARDIOVASCULAR: Regular rate and rhythm. ABDOMEN: Soft, nontender and nondistended. EXTREMITIES: No edema. NEUROLOGIC: No focal neurological deficits. SKIN: Warm, dry. Labs/Diagnostic Data Labs Test 02/19/25 21:41 02/19/25 20:59 Range/Units Troponin I High Sensitivity 4123 *H </=34 ng/L White Blood Count 39.1 *H 4.4-10.8 10^3/uL Red Blood Count 5.56 H 4.0-5.20 10^6/uL Hemoglobin 15.4 12.2-16.2 g/dL Hematocrit 46.7 H 36.0-46.0 % Mean Corpuscular Volume 83.9 80.0-100.0 fL Mean Corpuscular Hemoglobin 27.7 L 28.0-32.0 pg Mean Corpuscular Hemoglobin Concent 33.0 32.0-36.0 g/dL Red Cell Distribution Width 15.2 H 11.8-14.3 % Platelet Count 306 140-450 10^3/uL Mean Platelet Volume 7.4 6.9-10.8 fL Neutrophils (%) (Auto) 37.0-80.0 % Lymphocytes (%) (Auto) 10.0-50.0 % Monocytes (%) (Auto) 0.0-12.0 % Basophils (%) (Auto) 0.0-2.0 % Neutrophils # (Auto) 1.6-8.6 10 ^3/uL Lymphocytes # (Auto) 0.4-5.4 10 ^3/uL Monocytes # (Auto) 0-1.3 10 ^3/uL Differential Total Cells Counted 100.0 100 Neutrophils % (Manual) 20 L 37.0-80.0 Band Neutrophils % (Manual) 1 Lymphocytes % (Manual) 76 H 10.0-50.0 Monocytes % (Manual) 2 0-12 Eosinophils % (Manual) 1 0-7 Basophils % (Manual) 0 0.0-2.0 Metamyelocytes % (manual) 0 Myelocytes % (Manual) 0 Promyelocytes % (Manual) 0 Blast Cells % (Manual) 0 Reactive Lymphocytes 0 Smudge Cells 47 /100 WBC Platelet Estimate [place] Large Platelets Few Anisocytosis (manual) Slight Microcytosis Slight Macrocytosis Slight Prothrombin Time 10.3 9.3-11.8 sec Prothrombin Time INR 0.97 0.9-1.15 Activated Partial Thromboplast Time 25.9 24.5-34.5 SEC Sodium Level 134 L 136-145 mmol/L Potassium Level 4.3 3.5-5.1 mmol/L Chloride Level 99 98-107 mmol/L Carbon Dioxide Level 27 20-31 mmol/L Anion Gap 8 5-15 Blood Urea Nitrogen 9 9-23 mg/dL Creatinine 0.88 0.550-1.02 mg/dL Glomerular Filtration Rate Calc 73 >90 mL/min BUN/Creatinine Ratio 10.2 10.0-20.0 Serum Glucose 302 H 74-106 mg/dL Hemoglobin A1c 12.1 H <5.7 % A1C Lactic Acid Level 2.0 0.4-2.0 mmol/L Calcium Level 9.6 8.7-10.4 mg/dL Phosphorus Level 3.8 2.4-5.1 mg/dL Magnesium Level 1.8 1.6-2.6 mg/dL Total Bilirubin 0.4 0.2-1.0 mg/dL Direct Bilirubin < 0.1 <0.3 mg/dL Aspartate Amino Transferase (AST) 50 H 13-40 U/L Alanine Aminotransferase (ALT) 21 7-40 U/L Alkaline Phosphatase 200 H 46-116 U/L B-Type Natriuretic Peptide 122.43 0-100 pg/mL Total Protein 7.3 5.7-8.2 g/dL Albumin 4.5 3.2-4.8 g/dL Triglycerides Level 421 H < 150 mg/dL Cholesterol Level 218 H < 200 mg/dL LDL Cholesterol < 100 mg/dL HDL Cholesterol 43 40-59 mg/dL Assessment STEMI. DM. HTN. Plan/Recommendation I agree with your ongoing assessment and care of plan. Emergency cardiac cath. Risks and benefits were discussed with the patient. Echocardiogram. GI prophylactics. IV antibiotics as ordered. Metoprolol, Aspirin,Lipitor, Brilinta. Additional plan as per the hospital course. Critical care time of 90 minutes provided to include time spent evaluation of patient at bedside, when appropriate patient/family education for diagnosis, treatment plan, review of pertinent medical information and discussion of care with specialty providers and PCP. Plan discussed with: Patient JASMIN COREY MD Feb 19, 2025 23:40
--- NOTE | 2025-02-20 00:19 | DVHOP ---
DATE OF SURGERY: 02/19/2025 TECHNIQUES PERFORMED: * Code STEMI. * Insertion of a 6-Guinean arterial line from the right femoral artery under fluoroscopic guidance and supervision. * Left heart cath. * Left ventriculogram. * [place] selective left and right coronary artery angiography. Date of procedure performed 02/19/2025 at about 10:15 p.m. on Friday. INDICATIONS: Acute anterior wall myocardial infarction. DESCRIPTION OF PROCEDURE: Risks and benefits discussed. Counseling done. Questions answered. Brought to the logging rafter laborer urgently. The right femoral area was thoroughly cleaned with soap and Betadine. Lidocaine was given. Under fluoroscopic guidance, with the help of the JR4 catheter, the right coronary angio done. At the end of the procedure, we also did a left heart cath and a left ventriculogram and the procedure was completed. IMPRESSION: * Normal left main. * Left anterior artery at its mid region, 100% acutely blocked, JEANMARIE grade 0 flow. * Septal insert molding operator normal, diagonal artery normal. The circumflex artery is a moderate size, very tortuous and normal. The obtuse marginal artery is normal. The right coronary artery filling retrogradely to the distal one-third region with the help of a left coronary system. The right coronary artery is 100% occluded at the proximal one-third region, JEANMARIE grade 0 flow. The left ventricular ejection fraction is in the range of 30%. The lower half of the anterior wall, apical wall, and apical inferior wall has become akinetic. CONCLUSION: * 100% acute occlusion of the left anterior descending artery at the mid region, JEANMARIE grade 0 flow. * The obtuse marginal artery and circumflex artery are widely opened. The right coronary artery is 100% chronically occluded, filled up retrogradely to the distal one-third region with the help of left coronary system. The ejection fraction is 30%, apical anterior wall akinesis . PLAN OF ACTION: I advised the patient to undergo intervention on the left anterior descending artery. Jonah Grier MD MP/SUB/TUNG TID: [id number] RECEIPT: [id number] [facility]ENTERCatrachito
[2025-02-20] MEDS: METOPROLOL SUCCINATE XL 50 MG TAB PO ONE (00:21)
[2025-02-20] MEDS: ENOXAPARIN SOD 40 MG/0.4 ML SYRINGE SC ONE (00:21)
[2025-02-20] MEDS: PANTOPRAZOLE 40 MG/10 ML VIAL INJ IV ONE (00:22)
[2025-02-20] MEDS: ATORVASTATIN 20 MG TAB PO ONE (00:22)
[2025-02-20] MEDS: CEFEPIME 1GM/50ML 50 ML IV ONE (00:22)
--- NOTE | 2025-02-20 00:37 | DVHOP ---
DATE OF SURGERY: 02/19/2025 TECHNIQUES PERFORMED: * Insertion of a 6-Niuean arterial line from the right femoral artery under fluoroscopic guidance and supervision. * Management of conscious sedation. * Code STEMI. * Left coronary angiography. * Mechanical thrombectomy of the left anterior descending artery with the help of Penumbra catheter. * Balloon angioplasty of the mid region of the left anterior descending artery with 2.5 x 12 mm length semi-compliant balloon. * Stenting and angioplasty of the mid region of the left anterior descending artery with 3.0 x 26 mm length [place] stent of WinAd. * Intravascular ultrasound of the left main and also of the left anterior descending artery stented region. * Balloon angioplasty of the left anterior descending artery stent with 3.0 x 20 mm length noncompliant balloon and made the artery to 3.25 mm in size. * Intracoronary administration of Integrilin 10 mL bolus. * Right iliofemoral artery angiography. * Arteriotomy, Angio-Seal of the right femoral artery. COMPLICATIONS: None. ASSISTANTS: Assisted by our staff here is pedro Mccoy Angie and Steven. INDICATIONS: Acute anterior wall myocardial infarction. DESCRIPTION OF PROCEDURE: As follows: The risks and benefits have been discussed, counseling done, questions answered, information given. A 6-Niuean arterial line was passed. A JL3.5 6-Niuean guiding catheter was passed and Angiomax was started. Thereafter, we put a Runthrough wire, did not go through. We put a balloon 2.5 x 12, able to push wire into the mid distal region of the left anterior descending artery smoothly. Subsequently, we put a balloon, balloon angioplasty done. Subsequently, we put a Penumbra catheter. Mechanical thrombectomy was done. Subsequently, we also put again a balloon 2.5 x 12, balloon angioplasty done in the entire mid region of the left anterior descending artery. Balloon had been discontinued. Subsequently, we gave multiple doses of intracoronary nicardipine and nitroglycerine was given. We put a stent, 3.0 x 26 mm length. Stent was fully deployed, total of 15 atmospheres for 31 seconds followed by 21 seconds. Balloon deflated, balloon had been discontinued. Angiography was done. Subsequently, we did intravascular ultrasound. We found some gap between the stent and media, so we put a 3.0 x 20 mm length noncompliant balloon. Balloon angioplasty of the stent was done, made the artery to 3.25 mm proximally, mid, and distal region of the stent. Balloon deflated, balloon had been discontinued. Angiography was done. The result was satisfactory. There was no complication. Intracoronary administration of 10 mL of Integrilin given. Subsequently, we also did a right iliofemoral artery angiography, arteriotomy, Angio-Seal also done. Procedure went well. CONCLUSION: * Prior to performing the procedure #1, the left anterior descending artery at the mid region 100% acutely occluded, JEANMARIE grade 0 flow. * Postprocedure, JEANMARIE grade 3 flow and residual stenosis is 0%, 100% widely open, no spasm, no dissection, no thrombosis. PLAN OF ACTION: As follows: Advised aspirin, Brilinta, beta-jae, cholesterol-reducing medicine. Trying to reach the family. Jonah Grier MD MP/HEM TID: [id number] RECEIPT: [id number]
[2025-02-20] MEDS: MORPHINE SULFATE INJ 2 MG/ml SYRG IV PRN (02:44)
[2025-02-20 04:53] LABS: Mean Corpuscular Volume 84.6 fL (80.0-100.0)
[2025-02-20 04:56] LABS: Hematocrit 45.3 % (36.0-46.0); Hemoglobin 14.9 g/dL (12.2-16.2); Mean Corpuscular Hemoglobin 27.8 pg (28.0-32.0)
[2025-02-20 05:15] LABS: Albumin 4.1 g/dL (3.2-4.8); Anion Gap 10 (5-15); BUN/Creatinine Ratio 19.4 (10.0-20.0); Bilirubin, Total 0.8 mg/dL (0.2-1.0); Blood Urea Nitrogen 14 mg/dL (9-23); Calcium 9.2 mg/dL (8.7-10.4); Carbon Dioxide 22 mmol/L (20-31); Chloride 103 mmol/L (98-107); HDL Cholesterol 40 mg/dL (40-59); Potassium 4.2 mmol/L (3.5-5.1); Total Protein 6.5 g/dL (5.7-8.2)
[2025-02-20 05:25] LABS: Alanine Aminotransferase 87 U/L (7-40); Alkaline Phosphatase 188 U/L (46-116); Cholesterol 205 mg/dL (< 200); Glucose 300 mg/dL (74-106); Sodium 135 mmol/L (136-145); Triglycerides 482 mg/dL (< 150)
[2025-02-20] MEDS: FUROSEMIDE 40 MG/4 ML VIAL IV SCH (06:27)
[2025-02-20] MEDS: CEFEPIME 1GM/50ML 50 ML IV SCH (06:27)
[2025-02-20 06:39] LABS: Total Cells Counted 100.0 (100)
[2025-02-20 06:58] LABS: Urine Protein, UAD 1+ (Negative)
[2025-02-20] MEDS: InsuLIN REG 1unit/0.01ml Soln (100units/ml) SC SCH (07:00)
[2025-02-20] MEDS: ACCU-CHEK COMFORT CURVE STRIP VI SCH ×2 (07:00→16:25)
[2025-02-20] MEDS: INSULIN LANTUS (GLARGINE) 1 /0.01ml (100units/ml) SC SCH (07:00)
[2025-02-20 07:06] LABS: Opiate Scree,Urine Pos (NEGATIVE)
[2025-02-20 07:07] LABS: Amphetamine Screen, Urine Pos (NEGATIVE); Barbiturate Scree,Urine Neg (NEGATIVE); Benzodiazephine Screen, Urine Pos (NEGATIVE); Cocaine Screen, Urine Neg (NEGATIVE); Phencyclidine Screen, Urine Neg (NEGATIVE)
[2025-02-20 07:08] LABS: Cannabinoid Screen, Urine Neg (NEGATIVE)
--- NOTE | 2025-02-20 08:48 | DVH ---
INDICATION: Evaluate splenomegaly. Patient has smudge cells TECHNIQUE: Multiple real-time sonographic images of the abdomen were obtained. COMPARISON: None FINDINGS: Liver is increased in echogenicity. The liver measures 20.3 cm. No intrahepatic biliary ductal dilatation is noted. The gallbladder wall measures 0.2 cm and is unremarkable. No gallstones or gallbladder sludge. No pericholecystic fluid or edema. The common duct measures 0.5 cm and is unremarkable. The right kidney measures 10.7 cm. No hydronephrosis. The left kidney measures 10.8 cm. No hydronephr osis. The spleen measures 12.0 cm, within normal limits. The echogenicity is within normal limits. The pancreas is not well visualized due to obscuration from bowel gas. The visualized portions of the IVC and aorta are grossly unremarkable. IMPRESSION: Hepatic steatosis and hepatomegaly. Spleen is within normal limits.
[2025-02-20] MEDS: ENOXAPARIN SOD 40 MG/0.4 ML SYRINGE SC SCH (09:48)
[2025-02-20] MEDS: PANTOPRAZOLE 40 MG/10 ML VIAL INJ IV SCH (09:48)
[2025-02-20] MEDS: TICAGRELOR 90 MG TAB PO SCH (09:49)
[2025-02-20] MEDS ORDERED: CLOPIDOGREL BISULFATE 75 MG TAB PO SCH (10:00)
--- NOTE | 2025-02-20 10:41 | DVHPN2 ---
Subjective Patient reporting shortness of breath. Reviewed: Care Plan Changes from previous H/P or p: No Changes General: Per HPI Objective Vitals Vital Signs Date Time Temp Pulse Resp B/P (MAP) Pulse Ox O2 Delivery O2 Flow Rate FiO2 02/20/25 10:08 87 02/20/25 07:30 20 96 Nasal Cannula* 5 40 02/20/25 06:45 147/83 (104) 02/20/25 04:45 98.0 98.0 Intake/Output Intake and Output 02/20/25 07:00 Intake Total 263.5 ml Output Total 400 ml Balance -136.5 ml Intake Oral 220 ml IV Total 43.5 ml Output Urine Total 400 ml General Appearance: Alert, Oriented X3, Cooperative, mild distress HEENT: Atraumatic, PERRLA Lungs: Normal air movement, Other (Nasal cannula at 4 L/min) Cardiovascular: Normal S1, Normal S2, Other (ST elevations noted in anterior lateral leads.) Abdomen: Normal bowel sounds, Soft, No tenderness Genitourinary: No Apparent Abnormalities Musculoskeletal: Normal sensory function, Normal motor function Extremities: Other (Weak pulses bilateral lower extremities. Right foot discoloration) Neuro: Normal gait, Normal speech Skin: Dry, Intact Psych/Mental Status: Mental status NL, Mood NL Medications Current Medications Medications Dose Ordered Sig/Scott Route Start Time Stop Time Status Last Admin Dose Admin Nitroglycerin 0.4 mg Q5MINP PRN SL 02/19/25 22:15 Morphine Sulfate 2 mg Q30M PRN IV 02/19/25 22:15 Aspirin 81 mg DAILY PO 02/20/25 10:00 02/20/25 09:49 81 MG Atorvastatin Calcium 80 mg HS PO 02/20/25 22:00 Ticagrelor 90 mg BID PO 02/20/25 10:00 02/20/25 09:49 90 MG Metoprolol Succinate 25 mg DAILY PO 02/20/25 10:00 Cefepime HCl 50 ml @ 12.5 mls/hr Q8HR IV 02/20/25 06:00 02/20/25 06:27 12.5 MLS/HR Pantoprazole Sodium 40 mg DAILY IV 02/20/25 10:00 02/20/25 09:48 40 MG Diagnostic Test (Pha) 1 strip ACHS 02/20/25 07:00 02/20/25 07:00 1 STRIP Insulin Human Regular HS SC 02/20/25 22:00 Insulin Human Regular AC SC 02/20/25 07:00 02/20/25 07:00 12 UNITS Dextrose 50 ml UD PRN IV 02/19/25 23:30 Enoxaparin Sodium 40 mg DAILY SC 02/20/25 10:00 02/20/25 09:48 40 MG Insulin Glargine 10 units QAM SC 02/20/25 07:00 02/20/25 07:00 10 UNITS Morphine Sulfate 1 mg Q4HP PRN IV 02/20/25 02:30 02/20/25 02:44 1 MG Furosemide 40 mg BIDD IV 02/20/25 06:00 02/20/25 06:27 40 MG Sacubitril/ Valsartan 1 tab BID PO 02/20/25 22:00 UNV Laboratory Results Laboratory Tests 02/20/25 04:28 Chemistry Test 02/19/25 20:59 02/20/25 04:28 Albumin 4.5 g/dL (3.2-4.8) 4.1 g/dL (3.2-4.8) Calcium Level 9.6 mg/dL (8.7-10.4) 9.2 mg/dL (8.7-10.4) Magnesium Level 1.8 mg/dL (1.6-2.6) Phosphorus Level 3.8 mg/dL (2.4-5.1) Total Protein 7.3 g/dL (5.7-8.2) 6.5 g/dL (5.7-8.2) Coagulation Test 02/19/25 20:59 Prothrombin Time 10.3 sec (9.3-11.8) Prothrombin Time INR 0.97 (0.9-1.15) Activated Partial Thromboplast Time 25.9 SEC (24.5-34.5) Lipid panel Test 02/19/25 20:59 02/20/25 04:28 Cholesterol Level 218 mg/dL (< 200) H 205 mg/dL (< 200) H HDL Cholesterol 43 mg/dL (40-59) 40 mg/dL (40-59) Triglycerides Level 421 mg/dL (< 150) H 482 mg/dL (< 150) H Cardiac Markers Test 02/19/25 20:59 B-Type Natriuretic Peptide 122.43 pg/mL (0-100) LFT Test 02/19/25 20:59 02/20/25 04:28 Alanine Aminotransferase (ALT) 21 U/L (7-40) 87 U/L (7-40) H Alkaline Phosphatase 200 U/L (46-116) H 188 U/L (46-116) H Aspartate Amino Transferase (AST) 50 U/L (13-40) H 652 U/L (13-40) H Direct Bilirubin < 0.1 mg/dL (<0.3) Total Bilirubin 0.4 mg/dL (0.2-1.0) 0.8 mg/dL (0.2-1.0) HgA1c, TSH Test 02/19/25 20:59 Hemoglobin A1c 12.1 % A1C (<5.7) H Thyroid Stimulating Hormone (TSH) 1.69 uIU/mL (0.55-4.78) Urinalysis Test 02/20/25 05:30 Urine Color Yellow (Yellow) Urine Clarity Clear (Clear) Urine pH 6.0 (5.0-9.0) Urine Specific [place] > 1.050 (1.001-1.035) Urine Protein 1+ (Negative) H Urine Ketones Trace (Negative) Urine Blood 2+ /uL (Negative) H Urine Nitrite Negative (Negative) Urine Bilirubin Negative (Negative) Urine Urobilinogen Normal mg/dL (Negative) Urine Leukocyte Esterase Negative /uL (Negative) Urine RBC 2 /hpf (0 - 4) Urine Microscopic WBC 1 /HPF (0-5) Urine Squamous Epithelial Cells Few /hpf (<5) Urine Bacteria None seen /hpf (None Seen) Urine Mucus Few (None Seen) Urine Glucose 4+ mg/dL (Normal) H Labs and/or images reviewed: Labs reviewed by me, Image(s) reviewed by me Assessment/Plan Assessment/Plan Impression: -STEMI involving LAD -multivessel coronary artery disease -acute systolic heart failure -diabetes mellitus, uncontrolled -polysubstance abuse including tobacco and amphetamines -rule out right foot fracture -rule out peripheral arterial disease -acute hypoxic respiratory failure -dyslipidemia - probable CLL Plan: -patient is status post thrombectomy and stent placement to LAD. Noted chronic total occlusion of RCA with filling from left system -continue Brilinta and aspirin -continue statin -continue metoprolol, add Entresto -continue cefepime -O2 supplementation to keep saturation greater than 90% -p.r.n. Bronchodilators -right foot x-ray -bilateral lower extremity arterial study -keep patient in ICU overnight -repeat labs in a.m. Critical care time spent with patient discussing and formulating plan of care: 40 minutes. This does not include time spent performing procedures. This medical document was created using an electronic medical record system with [employer] dictation system. Although this document has been carefully reviewed, there may still be some phonetic and typographical errors. These areas are purely typographical due to imperfections of the software programs, and do not reflect any compromise in the patient's medical care. Plan discussed with: Patient, Other (RN) My Orders Orders - NOMI DUNCAN NP Procedure Category Date Status Time Chest Xray 1 View XY 02/20/25 Logged 10:15 Sacubitril-Valsartan PHA 02/20/25 Logged (Entresto 24-26 Mg 22:00 Bilat Low Ext Art US 02/20/25 Transmitted Duplex 10:32 R Foot 3 View Xray XY 02/20/25 Transmitted 10:32 Date of Service: Feb 20, 2025 Billing Provider: NOMI DUNCAN NP Common Visit Codes: 53242-[id number] CARE 30-74 MIN NOMI DUNCAN NP Feb 20, 2025 10:40
[2025-02-20] MEDS: METOPROLOL SUCCINATE XL 50 MG TAB PO SCH (10:46)
--- NOTE | 2025-02-20 11:15 | DVH ---
CHEST RADIOGRAPH Indication: chf Technique: Single frontal view of the chest was obtained Comparison: XY CHEST XRAY 1 VIEW on DOS: 02/19/25 FINDINGS: Lines and Tubes: None Lungs: No focal consolidation. Pleura: No effusion. No pneumothorax. Cardiomediastinal contours: Unremarkable Bones: No acute osseous abnormality. IMPRESSION: 1. No acute cardiopulmonary disease.
--- NOTE | 2025-02-20 12:08 | DVH ---
EXAM: XY R FOOT 3 VIEW XRAY CLINICAL INDICATION: fracture TECHNIQUE: XY R FOOT 3 VIEW XRAY Comparison: XY R FOOT 3 VIEW XRAY on DOS: 02/17/25 FINDINGS/IMPRESSION: There is no evidence of acute fracture or dislocation. The visualized joint space is well maintained. The alignment is anatomical. There is no radiopaque foreign body.
[2025-02-20] MEDS ORDERED: DEXTROSE (50%) 50ML SYRG IV PRN (12:15)
--- NOTE | 2025-02-20 15:14 | DVH ---
BILATERAL Lower Extremity Arterial Duplex Date: 02/20/2025 12:52 PM Clinical History: claudication, rule out PAD Comparison: None Technique: Duplex Doppler evaluation including color Doppler and spectral/pulsed waveform analysis of the lower extremity arteries was performed. Finding: RIGHT: Peak systolic velocities are as follows: TITLE I MATH TUTOR 75 cm/s triphasic Deep femoral 42 cm/s biphasic SFA proximal 42 cm/s biphasic SFA mid-portion 47 cm/s biphasic SFA distal 79 cm/s biphasic Popliteal 34 cm/s monophasic Posterior tibial 6 cm/s monophasic Dorsalis pedis 6 cm/s monophasic The waveforms are triphasic and biphasic above the knee. Monophasic at popliteal artery distally. LEFT: Peak systolic velocities are as follows: TITLE I MATH TUTOR 95 cm/s triphasic Deep femoral 61 cm/s triphasic SFA proximal no flow cm/s SFA mid-portion no flow cm/s SFA distal 80 cm/s monophasic Popliteal 32 cm/s monophasic Posterior tibial 13 cm/s monophasic Dorsalis pedis 4 cm/s monophasic The waveforms are triphasic waveform in the common femoral artery deep femoral artery. No flow noted in the proximal and mid superficial femoral artery. Monophasic waveform noted distally. REFERENCE VALUES, [facility] ([facility]) vascular Imaging Lab Criteria: Peak systolic velocity ranges (in cm/sec) are as follows: <150 cm/s - <20 % stenosis 150-200 cm/s - 20-49% stenosis 200-300 cm/s - 50-75% stenosis >300 cm/s -> 75% stenosis IMPRESSION: 1. Monophasic waveform on the right from the popliteal to the dorsalis pedis 2. On the left triphasic waveform in the common femoral deep femoral artery. No flow seen in the prox imal mid superficial femoral artery monophasic waveform noted distally. 3. No significant focal stenosis is identified.
[2025-02-20] MEDS: INSULIN LISPRO (HUMAN) 100 UNITS/ML ML SC SCH (16:25)
[2025-02-20] MEDS ORDERED: ATOR40TA52 PO (16:30)
[2025-02-20] MEDS ORDERED: GLIP10TA9 PO (16:30)
[2025-02-20] MEDS ORDERED: AMLO1TAB22 PO (16:30)
[2025-02-20] MEDS ORDERED: METO25TA36 PO (16:30)
[2025-02-20] MEDS ORDERED: SITA50TA PO (16:30)
[2025-02-20] MEDS ORDERED: ASPI81CH49 PO (16:30)
--- NOTE | 2025-02-20 16:31 | DVHSR ---
APPROVED REPORT EXAM: LIMITED Two-dimensional and M-mode echocardiogram with Doppler and color Doppler. Blood Pressure: 147/83 mmHg INDICATION STEMI RISK FACTORS Height: 5' 5", Weight: 165 DIMENSIONS LVDd4.4 (3.8-5.7cm)LA (2D)3.8 (1.9-4.0cm)Aortic Root2.4 (2.0-3.7cm) LVDs3.4 (2.5-4.0cm)LA (MM) (1.9-4.0cm)Aortic Cusp Exc1.3 (1.5-2.0cm) EF (%) 45.0 (55-70%)Rt. Atrium3.2 (1.9-4.0cm)Asc. Aorta cm IVSd1.0 (0.7-1.1cm)RV (D) (1.8-2.4cm) PWd0.9 (0.7-1.1cm) Mitral Valve MitralMitral Stenosis E wave0.80m/sMV Mean GR.mmHg A wave0.90m/sMV Peak GR.mmHg E/A ratio0.92D MVAcm2 Aortic Valve Aortic ValveAortic Stenosis V11.50m/Lina Mean GR.8mmHg V21.70m/Lina Peak GR.13mmHg LVOT Diameter2.1 (1.8-2.4cm)Doppler AVA3.05cm2 Other Information Quality : Technically LimitedRhythm : Technically limited study due to body habitus. Conclusion ENTIRE ANTERIOR WALL,LV APEX AND DISTAL HALF OF IVS ARE REMARKBLY HYPOKINETIC LV EF IS IN RANGE OF 35% MODERATE DEGREE LVH AND MODERATE DEGREE LV DIASTOLIC DYSFUNCTION GROSSLY NORMAL VALVES NO EFFUSION NORMAL RV FUNCTION
[2025-02-20] MEDS: NICOTINE 14 MG/24HR TOPICAL PATCH TD ONE (20:42)
[2025-02-20] MEDS ORDERED: InsuLIN REG 1unit/0.01ml Soln (100units/ml) SC SCH (22:00)
[2025-02-20] MEDS: SACUBITRIL-VALSARTAN 24mg/26mg TAB PO SCH (22:55)
[2025-02-20] MEDS: ATORVASTATIN 20 MG TAB PO SCH (22:57)
--- NOTE | 2025-02-20 23:15 | DVHPN2 ---
Progress Note - Dictate Date Seen: Feb 20, 2025 Medical Necessity Reason Pt with a Central, PICC or Fol: No Subjective Patient was seen and evaluated in follow up in the ICU. Patient is on 5 LPM NC. Patient underwent emergency left heart cath, [place] selective left and right coronary artery angiography, left coronary angiography, mechanical thrombectomy of the left anterior descending artery, balloon angioplasty of the mid region of the left anterior descending artery, stenting and angioplasty of the mid region of the left anterior descending artery, balloon angioplasty of the left anterior descending artery stent, intracoronary administration of Integrilin 10 mL bolus. The patient is advised for aspirin, Brilinta, beta-jae, cholesterol-reducing medicine. WBC 38.7, GLUC 370, AST 652, ALT 87, TROP >[id number]. vital signs Vital Sign Date Time Temp Pulse Resp B/P (MAP) Pulse Ox O2 Delivery O2 Flow Rate FiO2 02/20/25 13:15 87 22 120/75 (90) 94 02/20/25 12:00 99.0 99.0 02/20/25 07:30 Nasal Cannula* 5 40 Total Intake and Output 02/19/25 02/19/25 02/20/25 15:00 23:00 07:00 Intake Total 263.5 ml Output Total 400 ml Balance -136.5 ml medications Current Medications Medications Dose Ordered Sig/Scott Route Start Time Stop Time Status Last Admin Dose Admin Nitroglycerin 0.4 mg Q5MINP PRN SL 02/19/25 22:15 Morphine Sulfate 2 mg Q30M PRN IV 02/19/25 22:15 Aspirin 81 mg DAILY PO 02/20/25 10:00 02/20/25 09:49 81 MG Atorvastatin Calcium 80 mg HS PO 02/20/25 22:00 Ticagrelor 90 mg BID PO 02/20/25 10:00 02/20/25 09:49 90 MG Metoprolol Succinate 25 mg DAILY PO 02/20/25 10:00 Cefepime HCl 50 ml @ 12.5 mls/hr Q8HR IV 02/20/25 06:00 02/20/25 06:27 12.5 MLS/HR Pantoprazole Sodium 40 mg DAILY IV 02/20/25 10:00 02/20/25 09:48 40 MG Enoxaparin Sodium 40 mg DAILY SC 02/20/25 10:00 02/20/25 09:48 40 MG Insulin Glargine 10 units QAM SC 02/20/25 07:00 02/20/25 07:00 10 UNITS Morphine Sulfate 1 mg Q4HP PRN IV 02/20/25 02:30 02/20/25 02:44 1 MG Furosemide 40 mg BIDD IV 02/20/25 06:00 02/20/25 06:27 40 MG Sacubitril/ Valsartan 1 tab BID PO 02/20/25 22:00 Diagnostic Test (Pha) 1 strip IQ4HR 02/20/25 16:00 Insulin Human Regular IQ4HR SC 02/20/25 16:00 Dextrose 50 ml UD PRN IV 02/20/25 12:15 objective GENERAL: Alert and oriented x 3. No acute distress. EYES: PERRL, EOMI. Anicteric. HENT: Moist mucous membranes. LUNGS: Clear to auscultation bilaterally. CARDIOVASCULAR: Regular rate and rhythm. ABDOMEN: Soft, nontender and nondistended. EXTREMITIES: No edema. NEUROLOGIC: No focal neurological deficits. SKIN: Warm, dry. laboratory and microbiology Laboratory Tests 02/20/25 04:28 Test 02/20/25 04:28 Range/Units Serum Glucose 300 H 74-106 mg/dL Problem List STEMI. DM. HTN. Assessment/Plan Continued all current supportive medical care. Echocardiogram. Aspirin, Lipitor, Metoprolol, Brilinta. IV antibiotics as ordered. DVT and GI prophylactics. Diuretics with Lasix. Morphine for pain. Entresto. Additional plan as per the hospital course. Critical care time of 45 minutes provided to include time spent evaluation of patient at bedside, when appropriate patient/family education for diagnosis, treatment plan, review of pertinent medical information and discussion of care with specialty providers and PCP. Plan discussed with: Patient JASMIN COREY MD Feb 20, 2025 13:55
[2025-02-21] VITALS (61 sets, daily range): BP systolic 78–157; BP diastolic 24–76; PULSE 86–157; RESP 10–29; TEMP 98–99.4; O2SAT 56–97
[2025-02-21] MEDS: ACCU-CHEK COMFORT CURVE STRIP VI SCH (07:00)
[2025-02-21] MEDS: INSULIN LANTUS (GLARGINE) 1 /0.01ml (100units/ml) SC SCH (07:01)
[2025-02-21] MEDS: INSULIN LISPRO (HUMAN) 100 UNITS/ML ML SC SCH ×3 (07:01→17:35)
[2025-02-21 09:22] LABS: Mean Corpuscular Volume 85.7 fL (80.0-100.0)
[2025-02-21 09:24] LABS: Hematocrit 49.3 % (36.0-46.0); Hemoglobin 16.5 g/dL (12.2-16.2); Mean Corpuscular Hemoglobin 28.7 pg (28.0-32.0)
--- NOTE | 2025-02-21 09:40 | DVHPN2 ---
Subjective Patient reports shortness of breath has improved. Reviewed: Care Plan Changes from previous H/P or p: No Changes General: Per HPI Objective Vitals Vital Signs Date Time Temp Pulse Resp B/P (MAP) Pulse Ox O2 Delivery O2 Flow Rate FiO2 02/21/25 09:30 94 13 88 02/21/25 08:15 98.0 98.0 02/21/25 08:00 Nasal Cannula* 2 28 Intake/Output Intake and Output 02/21/25 07:00 Intake Total 853.0 ml Output Total 1400 ml Balance -547.0 ml Intake Oral 800 ml IV Total 53.0 ml Output Urine Total 1400 ml General Appearance: Alert, Oriented X3, Cooperative, mild distress HEENT: Atraumatic, PERRLA Lungs: Normal air movement, Other (Nasal cannula at 4 L/min) Cardiovascular: Normal S1, Normal S2, Other (ST elevations noted in anterior lateral leads.) Abdomen: Normal bowel sounds, Soft, No tenderness Genitourinary: No Apparent Abnormalities Musculoskeletal: Normal sensory function, Normal motor function Extremities: Other (Weak pulses bilateral lower extremities. Right foot discoloration) Neuro: Normal gait, Normal speech Skin: Dry, Intact Psych/Mental Status: Mental status NL, Mood NL Medications Current Medications Medications Dose Ordered Sig/Scott Route Start Time Stop Time Status Last Admin Dose Admin Nitroglycerin 0.4 mg Q5MINP PRN SL 02/19/25 22:15 Morphine Sulfate 2 mg Q30M PRN IV 02/19/25 22:15 Aspirin 81 mg DAILY PO 02/20/25 10:00 02/20/25 09:49 81 MG Atorvastatin Calcium 80 mg HS PO 02/20/25 22:00 02/20/25 22:57 80 MG Ticagrelor 90 mg BID PO 02/20/25 10:00 02/20/25 22:55 90 MG Metoprolol Succinate 25 mg DAILY PO 02/20/25 10:00 Cefepime HCl 50 ml @ 12.5 mls/hr Q8HR IV 02/20/25 06:00 02/21/25 06:45 12.5 MLS/HR Pantoprazole Sodium 40 mg DAILY IV 02/20/25 10:00 02/20/25 09:48 40 MG Enoxaparin Sodium 40 mg DAILY SC 02/20/25 10:00 02/20/25 09:48 40 MG Morphine Sulfate 1 mg Q4HP PRN IV 02/20/25 02:30 02/21/25 01:36 1 MG Dextrose 50 ml UD PRN IV 02/20/25 12:15 Insulin Glargine 20 units QAM SC 02/21/25 07:00 02/21/25 07:01 20 UNITS Insulin Human Lispro ACHS SC 02/21/25 07:00 02/21/25 07:01 3 UNITS Insulin Human Lispro 4 units AC SC 02/21/25 08:00 02/21/25 08:00 4 UNITS Diagnostic Test (Pha) 1 strip ACHS 02/21/25 07:00 02/21/25 07:00 1 STRIP Furosemide 40 mg DAILY IV 02/22/25 06:00 Empaglifozin 10 mg DAILY PO 02/21/25 10:00 Sacubitril/ Valsartan 0.5 tab BID PO 02/21/25 10:00 Laboratory Results Laboratory Tests 02/21/25 09:08 Chemistry Test 02/21/25 09:08 Albumin Pending Calcium Level Pending Magnesium Level Pending Total Protein Pending LFT Test 02/21/25 09:08 Alanine Aminotransferase (ALT) Pending Alkaline Phosphatase Pending Aspartate Amino Transferase (AST) Pending Total Bilirubin Pending Urinalysis Test 02/20/25 05:30 Urine Color Yellow (Yellow) Urine Clarity Clear (Clear) Urine pH 6.0 (5.0-9.0) Urine Specific [place] > 1.050 (1.001-1.035) Urine Protein 1+ (Negative) H Urine Ketones Trace (Negative) Urine Blood 2+ /uL (Negative) H Urine Nitrite Negative (Negative) Urine Bilirubin Negative (Negative) Urine Urobilinogen Normal mg/dL (Negative) Urine Leukocyte Esterase Negative /uL (Negative) Urine RBC 2 /hpf (0 - 4) Urine Microscopic WBC 1 /HPF (0-5) Urine Squamous Epithelial Cells Few /hpf (<5) Urine Bacteria None seen /hpf (None Seen) Urine Mucus Few (None Seen) Urine Glucose 4+ mg/dL (Normal) H Microbiology Microbiology Date/Time Source Procedure Growth Status 02/20/25 01:04 Nose MRSA Screen - Final Complete 02/20/25 00:00 Blood Blood Culture - Preliminary NO GROWTH AFTER 24 HOURS OF INCUBATION. Resulted Labs and/or images reviewed: Labs reviewed by me, Image(s) reviewed by me Assessment/Plan Assessment/Plan Impression: -STEMI involving LAD -multivessel coronary artery disease -acute systolic heart failure -diabetes mellitus, uncontrolled -polysubstance abuse including tobacco and amphetamines -ruled out right foot fracture -paroxysmal atrial tachycardia -acute hypoxic respiratory failure -dyslipidemia - probable CLL -peripheral arterial disease Plan: Events: Patient noted to have periods of tachycardia. Blood pressure borderline. -continue Brilinta and aspirin -continue statin -continue metoprolol, decrease Entresto to half a tablet b.i.d.. Add Jardiance -change Lasix to daily -discontinue cefepime -O2 supplementation to keep saturation greater than 90% -p.r.n. Bronchodilators -keep patient in ICU overnight -repeat labs in a.m. Critical care time spent with patient discussing and formulating plan of care: 40 minutes. This does not include time spent performing procedures. This medical document was created using an electronic medical record system with [employer] dictation system. Although this document has been carefully reviewed, there may still be some phonetic and typographical errors. These areas are purely typographical due to imperfections of the software programs, and do not reflect any compromise in the patient's medical care. Plan discussed with: Patient, Other (RN) My Orders Orders - NOMI DUNCAN NP Procedure Category Date Status Time Chest Xray 1 View XY 02/20/25 Resulted 10:15 Bilat Low Ext Art US 02/20/25 Resulted Duplex 10:32 R Foot 3 View Xray XY 02/20/25 Resulted 10:32 Comprehensive LAB 02/21/25 In Process Metabolic Panel 08:17 Complete Blood Count LAB 02/21/25 In Process 08:17 Magnesium LAB 02/21/25 In Process 08:17 Furosemide Injection PHA 02/22/25 In Process (Lasix Injection) 06:00 Empagliflozin PHA 02/21/25 In Process (Jardiance) 10:00 Sacubitril-Valsartan PHA 02/21/25 In Process (Entresto 24-26 Mg 10:00 Manual Differential LAB 02/21/25 In Process 09:08 Basic Metabolic Panel LAB 02/22/25 Verified 04:00 Complete Blood Count LAB 02/22/25 Verified 04:00 Date of Service: Feb 21, 2025 Billing Provider: NOMI DUNCAN [employer] Common Visit Codes: [id number] CARE 30-74 MIN NOMI DUNCAN NP Feb 21, 2025 09:40
[2025-02-21] MEDS: EMPAGLIFLOZIN 10 MG TAB PO SCH (09:52)
[2025-02-21] MEDS: SACUBITRIL-VALSARTAN 24mg/26mg TAB PO SCH (09:53)
[2025-02-21 10:02] LABS: Albumin 4.5 g/dL (3.2-4.8); Anion Gap 12 (5-15); BUN/Creatinine Ratio 13.7 (10.0-20.0); Blood Urea Nitrogen 14 mg/dL (9-23); Calcium 9.1 mg/dL (8.7-10.4); Carbon Dioxide 22 mmol/L (20-31); Chloride 101 mmol/L (98-107); Magnesium 1.6 mg/dL (1.6-2.6); Potassium 3.6 mmol/L (3.5-5.1); Total Protein 7.4 g/dL (5.7-8.2)
[2025-02-21 10:03] LABS: Bilirubin, Total 0.7 mg/dL (0.2-1.0)
[2025-02-21 10:10] LABS: Alanine Aminotransferase 55 U/L (7-40); Alkaline Phosphatase 171 U/L (46-116); Glucose 196 mg/dL (74-106); Sodium 135 mmol/L (136-145)
[2025-02-21 11:22] LABS: Anisocytosis Slight; Total Cells Counted 100.0 (100)
--- NOTE | 2025-02-21 13:38 | DVHINCON2 ---
Date of service: Feb 21, 2025 Referring Physician Ivelisse CUI Reason for Consultation Uncontrolled hypertension History of Present Illness Patient is 64 year female with past medical history of uncontrolled diabetes mellitus, recently started on insulin Lantus 10 unit 15 days ago of prior ad mission, dyslipidemia, hypertension, obesity, leukemia who presented to hospital with a chief complaint of retrosternal chest pain radiating to left ear, 01/09, sudden onset, no alleviating or aggravating factor on 02/19/2025. Patient was found to have anterolateral STEMI, underwent urgent PCI with stent placement in mid LAD due to complete occlusion. Patient was given dual antiplatelet with aspirin ticagrelor and atorvastatin. Endocrine consultation was done for uncontrolled diabetes mellitus. As per patient she was started on insulin Lantus 15 days ago with 10 unit once daily, continue taking glipizide orally. As per patient her diabetes not under control and her primary care patient tried to control within she will need recently. Patient denying any other complaint at the time of evaluation. Past medical history: Hypertension, dyslipidemia, diabetes, obesity, leukemia, Surgical history: Hysterectomy, tonsillectomy Family history: Mother has breast cancer. Father has prostate cancer Social history: Smokes 5-8 pack years cigarette. Denies current alcohol and other drug abuse. Allergies: Latex and tetanus shot Home medication: Metoprolol, glipizide, atorvastatin, amlodipine, aspirin, Januvia Family History: Malignant melanoma G8 FATHER, Onset:60 years & older Malignant neoplasm of breast G8 MOTHER, Onset:60 years & older Prostate carcinoma G8 FATHER, Onset:60 years & older Allergies: Coded Allergies: Tetanus Toxoid (Verified Allergy, Unknown, 03/25/15) Uncoded Allergies: LATEX BANDAIDS (Allergy, Unknown, 03/25/15) Home Meds Active Scripts Ibuprofen (Ibuprofen) 800 Mg Tab, 1 TAB PO TID, #30 TAB Prov:FAUSTINA CHAVARRIA 02/17/25 Reported Medications Aspirin (Aspirin) 81 Mg Chw, 81 MG PO, TAB.CHEW 02/20/25 Atorvastatin Calcium (ATORVASTATIN CALCIUM) 40 Mg Tab, 40 MG PO DAILY, TAB 02/20/25 Metoprolol Succinate (Toprol Xl) 25 Mg Tab, 1 TAB PO DAILY, #30 TAB 5 Refills 02/20/25 Amlodipine Besylate (Amlodipine Besylate) 5 Mg Tab, 5 MG PO DAILY for 30 Days, MG 02/20/25 Glipizide (Glipizide) 10 Mg Tab, 10 MG PO BIDWM for 30 Days, MG 02/20/25 Sitagliptin Phosphate (Januvia) 50 Mg Tab, 30 MG PO DAILY, TAB 02/20/25 Current Medications Current Medications Medications (Trade) Dose Ordered Sig/Scott Route PRN Reason Start Time Stop Time Status Last Admin Atorvastatin Calcium (Lipitor) 80 mg HS PO 02/20/25 22:00 02/20/25 22:57 Insulin Human Regular (InsuLIN R) HS SC 02/20/25 22:00 02/20/25 12:12 DC Sacubitril/ Valsartan (Entresto 24-26 Mg tab) 1 tab BID PO 02/20/25 22:00 02/21/25 09:16 DC 02/20/25 22:55 Diagnostic Test (Pha) (Accu-Chek Comfort Curve T) 1 strip IQ4HR 02/20/25 16:00 02/21/25 06:38 DC 02/21/25 00:00 Insulin Human Lispro (HumaLOG) IQ4HR CA 02/20/25 16:00 02/21/25 02:02 DC 02/21/25 00:00 Insulin Glargine (Lantus) 20 units QAM CA 02/21/25 07:00 02/21/25 07:01 Insulin Human Lispro (HumaLOG) ACHS CA 02/21/25 07:00 02/21/25 11:42 Insulin Human Lispro (HumaLOG) 4 units AC CA 02/21/25 08:00 02/21/25 11:43 Diagnostic Test (Pha) (Accu-Chek Comfort Curve T) 1 strip ACHS 02/21/25 07:00 02/21/25 11:38 Furosemide (Lasix Injection) 40 mg DAILY IV 02/22/25 06:00 Empaglifozin (Jardiance) 10 mg DAILY PO 02/21/25 10:00 02/21/25 09:52 Sacubitril/ Valsartan (Entresto 24-26 Mg tab) 0.5 tab BID PO 02/21/25 10:00 02/21/25 09:53 Review of Systems ROS Complaining of right foot 1st toe and 4th toe discoloration and pain. Constitutional: No: Fever, Chills, Sweats, Weakness, Malaise, Other Eyes: No: Pain, Vision change, Conjunctivae inflammation, Eyelid inflammation, Other, Redness ENT: No: Ear pain, Ear discharge, Nose pain, Nose discharge, Nose congestion, Mouth pain, Mouth swelling, Throat pain, Throat swelling, Other Respiratory: No: Cough, Dry, Shortness of breath, SOB with excertion, Wheezing, Hemoptysis, Pleuritic Pain, Sputum, Wheezing, Other Cardiovascular: No: Chest Pain, Palpitations, Orthopnea, Paroxysmal Noc. Dyspnea, Edema, Lt Headedness, Other Gastrointestinal: No: Nausea, Vomiting, Abdominal Pain, Diarrhea, Constipation, Melena, Hematochezia, Other Musculoskeletal: No: other, neck pain, shoulder pain, arm pain, back pain, hand pain, leg pain, foot pain Neurological:; No: Weakness, Numbness, Incoordination, Change in speech, Confusion, Seizures Vital Signs Vital Signs Date Time Temp Pulse Resp B/P (MAP) Pulse Ox O2 Delivery O2 Flow Rate FiO2 02/21/25 11:15 89 15 92/51 02/21/25 09:30 88 02/21/25 08:15 98.0 98.0 02/21/25 08:00 Nasal Cannula* 2 28 Physical Exam Examination General Appearance: Alert, Oriented X3, Cooperative, No acute distress HEENT: EOMI Respiratory: Clear to auscultation, Normal air movement Cardiovascular: Regular rate, Normal S1, Normal S2 Abdominal: Normal bowel sounds Extremities: No cyanosis, No edema, Normal pulses, No tenderness/swelling, bluish discoloration of 1st toe and 4th toe right foot Skin: No rashes, No breakdown Neuro: Normal gait, Normal speech, Strength at 5/5 X4 ext, Normal tone, Sensation intact, Cranial nerves 3-12 NL, Reflexes 2+ Psych/Mental Status: Mental status NL, Mood NL Labs/Diagnostic Data Labs Test 02/21/25 11:26 02/21/25 09:08 02/20/25 05:30 02/20/25 04:28 Range/Units POC Glucose 302 H 70-106 mg/dl White Blood Count 38.9 *H 4.4-10.8 10^3/uL Red Blood Count 5.76 H 4.0-5.20 10^6/uL Hemoglobin 16.5 H 12.2-16.2 g/dL Hematocrit 49.3 H 36.0-46.0 % Mean Corpuscular Volume 85.7 80.0-100.0 fL Mean Corpuscular Hemoglobin 28.7 28.0-32.0 pg Mean Corpuscular Hemoglobin Concent 33.5 32.0-36.0 g/dL Red Cell Distribution Width 15.2 H 11.8-14.3 % Platelet Count 283 140-450 10^3/uL Mean Platelet Volume 7.7 6.9-10.8 fL Neutrophils (%) (Auto) 37.0-80.0 % Lymphocytes (%) (Auto) 10.0-50.0 % Monocytes (%) (Auto) 0.0-12.0 % Basophils (%) (Auto) 0.0-2.0 % Neutrophils # (Auto) 1.6-8.6 10 ^3/uL Lymphocytes # (Auto) 0.4-5.4 10 ^3/uL Monocytes # (Auto) 0-1.3 10 ^3/uL Differential Total Cells Counted 100.0 100 Neutrophils % (Manual) 22 L 37.0-80.0 Band Neutrophils % (Manual) 0 Lymphocytes % (Manual) 68 H 10.0-50.0 Monocytes % (Manual) 4 0-12 Eosinophils % (Manual) 0 0-7 Basophils % (Manual) 0 0.0-2.0 Metamyelocytes % (manual) 0 Myelocytes % (Manual) 0 Promyelocytes % (Manual) 0 Blast Cells % (Manual) 0 Reactive Lymphocytes 6 Platelet Estimate Adequate Anisocytosis (manual) Slight Sodium Level 135 L 136-145 mmol/L Potassium Level 3.6 3.5-5.1 mmol/L Chloride Level 101 98-107 mmol/L Carbon Dioxide Level 22 20-31 mmol/L Anion Gap 12 5-15 Blood Urea Nitrogen 14 9-23 mg/dL Creatinine 1.02 # 0.550-1.02 mg/dL Glomerular Filtration Rate Calc 61 >90 mL/min BUN/Creatinine Ratio 13.7 10.0-20.0 Serum Glucose 196 H 74-106 mg/dL Calcium Level 9.1 8.7-10.4 mg/dL Magnesium Level 1.6 1.6-2.6 mg/dL Total Bilirubin 0.7 0.2-1.0 mg/dL Aspartate Amino Transferase (AST) 203 H 13-40 U/L Alanine Aminotransferase (ALT) 55 H 7-40 U/L Alkaline Phosphatase 171 H 46-116 U/L Troponin I High Sensitivity 71283 *H </=34 ng/L Total Protein 7.4 5.7-8.2 g/dL Albumin 4.5 3.2-4.8 g/dL Urine Color Yellow Yellow Urine Clarity Clear Clear Urine pH 6.0 5.0-9.0 Urine Specific [place] > 1.050 H 1.001-1.035 Urine Protein 1+ H Negative Urine Ketones Trace Negative Urine Blood 2+ H Negative /uL Urine Nitrite Negative Negative Urine Bilirubin Negative Negative Urine Urobilinogen Normal Negative mg/dL Urine Leukocyte Esterase Negative Negative /uL Urine RBC 2 0 - 4 /hpf Urine Microscopic WBC 1 0-5 /HPF Urine Squamous Epithelial Cells Few <5 /hpf Urine Bacteria None seen None Seen /hpf Urine Mucus Few None Seen Urine Glucose 4+ H Normal mg/dL Urine Opiates Screen Pos NEGATIVE Urine Fentanyl Screen Pos NEGATIVE Urine Barbiturates Screen Neg NEGATIVE Urine Phencyclidine Screen Neg NEGATIVE Urine Amphetamines Screen Pos NEGATIVE Urine Benzodiazepines Screen Pos NEGATIVE Urine Cocaine Screen Neg NEGATIVE Urine Cannabinoids Screen Neg NEGATIVE Triglycerides Level 482 H < 150 mg/dL Cholesterol Level 205 H < 200 mg/dL LDL Cholesterol < 100 mg/dL HDL Cholesterol 40 40-59 mg/dL Test 02/19/25 20:59 Range/Units Smudge Cells 47 /100 WBC Large Platelets Few Microcytosis Slight Macrocytosis Slight Prothrombin Time 10.3 9.3-11.8 sec Prothrombin Time INR 0.97 0.9-1.15 Activated Partial Thromboplast Time 25.9 24.5-34.5 SEC Hemoglobin A1c 12.1 H <5.7 % A1C Lactic Acid Level 2.0 0.4-2.0 mmol/L Phosphorus Level 3.8 2.4-5.1 mg/dL Direct Bilirubin < 0.1 <0.3 mg/dL B-Type Natriuretic Peptide 122.43 0-100 pg/mL Vitamin B12 Level 741 211-911 pg/mL Vitamin D 25-Hydroxy 27.3 L 30.0-100 ng/mL Thyroid Stimulating Hormone (TSH) 1.69 0.55-4.78 uIU/mL Microbiology Date/Time Source Procedure Growth Status 02/20/25 05:30 Voided Urine Urine Culture - Preliminary Resulted 02/20/25 01:04 Nose MRSA Screen - Final Complete 02/20/25 00:00 Blood Blood Culture - Preliminary NO GROWTH AFTER 24 HOURS OF INCUBATION. Resulted Assessment Uncontrolled diabetes mellitus type 2, HbA1c 12.1 on 02/19/2025 STEMI Multivessel coronary artery disease Acute systolic #Heart failure Questionable CLL Severe peripheral artery disease Dyslipidemia Transaminitis Paroxysmal atrial tachycardia Plan/recommendation Dr. Baird -continue diabetic diet -continue Lantus 20 unit subcu q.a.m. -increased dose of scheduled lispro to 7 unit before each meal -continue sliding scale lispro a.c. HS -q.4 Accu-Chek -continue current management as per hospitalist and director of catering for heart failure and STEMI Plan discussed with: Patient, Other (RN) MACRINA STEPHENS RESIDENT Feb 21, 2025 13:38
--- NOTE | 2025-02-21 16:32 | ECG ---
[facility] Test Date: 2025-02-20 Test Time: 08:57:25 Pat Name: SUMEET BARRIGA Department: Respiratoy Room: 0261 A Gender: F Student Services Rep: OTTONIEL : 1960 Requested By: NOMI DUNCAN Order Number: [id number] Reading MD: Roberto Giles Measurements Intervals Garita Rate: 85 P: 56 RI: 150 QRS: 51 QRSD: 92 T: 91 QT: 347 QTc: 413 Interpretive Statements Sinus rhythm Inferior infarct, acute Extensive anterior infarct, acute (LAD) Baseline wander in lead(s) II,III,aVF Electronically Signed On 02-21-2025 18:33:40 PDT by Roberto Giles Please click the below link to view image of tracing.
--- NOTE | 2025-02-21 23:58 | DVHPN2 ---
Progress Note - Dictate Date Seen: Feb 21, 2025 Medical Necessity Reason Pt with a Central, PICC or Fol: No Subjective Patient was seen and evaluated in follow up in the ICU. Patient is on 2 LPM NC. Patient is resting in bed. Patient reports SOB is improving. WBC 28.9. AST 203, ALT 55, ALK PHOS 171. vital signs Vital Sign Date Time Temp Pulse Resp B/P (MAP) Pulse Ox O2 Delivery O2 Flow Rate FiO2 02/21/25 23:00 97 18 82/41 (55) 95 02/21/25 20:00 Nasal Cannula* 2 28 02/21/25 20:00 99.4 99.4 Total Intake and Output 02/20/25 02/20/25 02/21/25 15:00 23:00 07:00 Intake Total 500 ml 353.0 ml Output Total 1000 ml 400 ml Balance -500 ml -47.0 ml medications Current Medications Medications Dose Ordered Sig/Scott Route Start Time Stop Time Status Last Admin Dose Admin Nitroglycerin 0.4 mg Q5MINP PRN SL 02/19/25 22:15 Morphine Sulfate 2 mg Q30M PRN IV 02/19/25 22:15 Aspirin 81 mg DAILY PO 02/20/25 10:00 02/21/25 09:52 81 MG Atorvastatin Calcium 80 mg HS PO 02/20/25 22:00 02/21/25 22:01 80 MG Ticagrelor 90 mg BID PO 02/20/25 10:00 02/21/25 22:01 90 MG Metoprolol Succinate 25 mg DAILY PO 02/20/25 10:00 Pantoprazole Sodium 40 mg DAILY IV 02/20/25 10:00 02/21/25 09:52 40 MG Enoxaparin Sodium 40 mg DAILY SC 02/20/25 10:00 02/21/25 09:52 40 MG Morphine Sulfate 1 mg Q4HP PRN IV 02/20/25 02:30 02/21/25 22:39 1 MG Dextrose 50 ml UD PRN IV 02/20/25 12:15 Insulin Glargine 20 units QAM SC 02/21/25 07:00 02/21/25 07:01 20 UNITS Insulin Human Lispro ACHS SC 02/21/25 07:00 02/21/25 22:02 6 UNITS Diagnostic Test (Pha) 1 strip ACHS 02/21/25 07:00 02/21/25 22:02 1 STRIP Furosemide 40 mg DAILY IV 02/22/25 06:00 Empaglifozin 10 mg DAILY PO 02/21/25 10:00 02/21/25 09:52 10 MG Sacubitril/ Valsartan 0.5 tab BID PO 02/21/25 10:00 02/21/25 22:01 0.5 TAB Insulin Human Lispro 7 units AC SC 02/21/25 17:00 02/21/25 17:35 7 UNITS Midodrine 5 mg TID PRN PO 02/22/25 00:00 UNV objective GENERAL: Alert and oriented x 3. No acute distress. EYES: PERRL, EOMI. Anicteric. HENT: Moist mucous membranes. LUNGS: Clear to auscultation bilaterally. CARDIOVASCULAR: Regular rate and rhythm. ABDOMEN: Soft, nontender and nondistended. EXTREMITIES: No edema. NEUROLOGIC: No focal neurological deficits. SKIN: Warm, dry. laboratory and microbiology Laboratory Tests 02/21/25 09:08 Test 02/21/25 09:08 Range/Units Serum Glucose 196 H 74-106 mg/dL Problem List STEMI. DM. HTN. Assessment/Plan Continued all current supportive medical care. Echocardiogram. Aspirin, Lipitor, Metoprolol, Brilinta. IV antibiotics as ordered. DVT and GI prophylactics. Diuretics with Lasix. Morphine for pain. Entresto. Additional plan as per the hospital course. Critical care time of 45 minutes provided to include time spent evaluation of patient at bedside, when appropriate patient/family education for diagnosis, treatment plan, review of pertinent medical information and discussion of care with specialty providers and PCP. Plan discussed with: Patient JASMIN COREY MD Feb 21, 2025 23:58
[2025-02-22] VITALS (43 sets, daily range): BP systolic 80–119; BP diastolic 37–69; PULSE 55–154; RESP 12–25; TEMP 97.4–98.5; O2SAT 86–100
[2025-02-22] MEDS ORDERED: MIDODRINE HCL 10 MG TAB PO PRN
--- NOTE | 2025-02-22 00:31 | DVH ---
CHEST RADIOGRAPH Indication: PER MD TELEPHONE ORDER Technique: Single frontal view of the chest was obtained COMPARISON: XY CHEST XRAY 1 VIEW on DOS: 02/20/25, XY CHEST XRAY 1 VIEW on DOS: 02/19/25 FINDINGS: Lines and Tubes: None Lungs: Clear Pleura: No effusion. No pneumothorax. Cardiomediastinal contours: Unremarkable Bones: Unremarkable IMPRESSION: 1. No acute disease.
[2025-02-22 00:34] LABS: Hematocrit 42.2 % (36.0-46.0); Hemoglobin 14.1 g/dL (12.2-16.2); Mean Corpuscular Hemoglobin 28.0 pg (28.0-32.0); Mean Corpuscular Volume 83.9 fL (80.0-100.0)
[2025-02-22 00:54] LABS: Alanine Aminotransferase 36 U/L (7-40); Albumin 3.9 g/dL (3.2-4.8); Anion Gap 8 (5-15); BUN/Creatinine Ratio 21.2 (10.0-20.0); Bilirubin, Total 0.4 mg/dL (0.2-1.0); Calcium 8.7 mg/dL (8.7-10.4); Carbon Dioxide 25 mmol/L (20-31); Chloride 103 mmol/L (98-107); Sodium 136 mmol/L (136-145); Total Protein 6.4 g/dL (5.7-8.2)
[2025-02-22 01:00] LABS: Alkaline Phosphatase 151 U/L (46-116); Blood Urea Nitrogen 24 mg/dL (9-23); Glucose 187 mg/dL (74-106); Potassium 3.5 mmol/L (3.5-5.1)
[2025-02-22 01:15] LABS: Total Cells Counted 100.0 (100)
[2025-02-22] MEDS: MORPHINE SULFATE INJ 2 MG/ml SYRG IV ONE (01:38)
[2025-02-22 05:11] LABS: Hematocrit 42.8 % (36.0-46.0); Hemoglobin 14.2 g/dL (12.2-16.2); Mean Corpuscular Hemoglobin 28.0 pg (28.0-32.0); Mean Corpuscular Volume 84.3 fL (80.0-100.0)
[2025-02-22 05:21] LABS: Chloride 102 mmol/L (98-107); Potassium 3.6 mmol/L (3.5-5.1); Sodium 137 mmol/L (136-145)
[2025-02-22 05:22] LABS: Anion Gap 10 (5-15); Carbon Dioxide 25 mmol/L (20-31)
[2025-02-22 05:23] LABS: Calcium 9.0 mg/dL (8.7-10.4)
[2025-02-22 05:27] LABS: BUN/Creatinine Ratio 21.9 (10.0-20.0); Blood Urea Nitrogen 23 mg/dL (9-23)
[2025-02-22 05:32] LABS: Glucose 216 mg/dL (74-106)
[2025-02-22 06:32] LABS: Total Cells Counted 100.0 (100)
[2025-02-22] MEDS: FUROSEMIDE 40 MG/4 ML VIAL IV SCH (06:49)
--- NOTE | 2025-02-22 09:38 | DVHPN2 ---
Subjective Patient reports shortness of breath has improved. Reviewed: Care Plan Changes from previous H/P or p: No Changes General: Per HPI Objective Vitals Vital Signs Date Time Temp Pulse Resp B/P (MAP) Pulse Ox O2 Delivery O2 Flow Rate FiO2 02/22/25 09:08 93 13 104/60 02/22/25 06:30 97 02/22/25 04:30 98.5 98.5 02/21/25 20:00 Nasal Cannula* 2 28 Intake/Output Intake and Output 02/22/25 07:00 Intake Total 1240.0 ml Output Total 1200 ml Balance 40.0 ml Intake Oral 1215 ml IV Total 25.0 ml Output Urine Total 1200 ml # Voids 3 # Bowel Movements 1 General Appearance: Alert, Oriented X3, Cooperative, mild distress HEENT: Atraumatic, PERRLA Lungs: Normal air movement, Other (Nasal cannula at 4 L/min) Cardiovascular: Normal S1, Normal S2, Other (ST elevations noted in anterior lateral leads.) Abdomen: Normal bowel sounds, Soft, No tenderness Genitourinary: No Apparent Abnormalities Musculoskeletal: Normal sensory function, Normal motor function Extremities: Other (Weak pulses bilateral lower extremities. Right foot discoloration) Neuro: Normal gait, Normal speech Skin: Dry, Intact Psych/Mental Status: Mental status NL, Mood NL Medications Current Medications Medications Dose Ordered Sig/Scott Route Start Time Stop Time Status Last Admin Dose Admin Nitroglycerin 0.4 mg Q5MINP PRN SL 02/19/25 22:15 Morphine Sulfate 2 mg Q30M PRN IV 02/19/25 22:15 Aspirin 81 mg DAILY PO 02/20/25 10:00 02/21/25 09:52 81 MG Atorvastatin Calcium 80 mg HS PO 02/20/25 22:00 02/21/25 22:01 80 MG Ticagrelor 90 mg BID PO 02/20/25 10:00 02/21/25 22:01 90 MG Metoprolol Succinate 25 mg DAILY PO 02/20/25 10:00 Pantoprazole Sodium 40 mg DAILY IV 02/20/25 10:00 02/21/25 09:52 40 MG Enoxaparin Sodium 40 mg DAILY SC 02/20/25 10:00 02/21/25 09:52 40 MG Morphine Sulfate 1 mg Q4HP PRN IV 02/20/25 02:30 02/22/25 09:08 1 MG Dextrose 50 ml UD PRN IV 02/20/25 12:15 Insulin Glargine 20 units QAM SC 02/21/25 07:00 02/22/25 06:48 20 UNITS Insulin Human Lispro ACHS SC 02/21/25 07:00 02/22/25 06:49 6 UNITS Diagnostic Test (Pha) 1 strip ACHS 02/21/25 07:00 02/22/25 07:15 1 STRIP Furosemide 40 mg DAILY IV 02/22/25 06:00 02/22/25 06:49 40 MG Empaglifozin 10 mg DAILY PO 02/21/25 10:00 02/21/25 09:52 10 MG Insulin Human Lispro 7 units AC SC 02/21/25 17:00 02/22/25 07:51 7 UNITS Midodrine 5 mg TID PRN PO 02/22/25 00:00 Sacubitril/ Valsartan 0.5 tab BID PO 02/22/25 10:00 Acetaminophen/ Hydrocodone Bitart 1 tab Q4HPRN PRN PO 02/22/25 09:30 UNV Laboratory Results Laboratory Tests 02/22/25 04:43 Chemistry Test 02/22/25 00:15 02/22/25 04:43 Albumin 3.9 g/dL (3.2-4.8) Calcium Level 8.7 mg/dL (8.7-10.4) 9.0 mg/dL (8.7-10.4) Total Protein 6.4 g/dL (5.7-8.2) LFT Test 02/22/25 00:15 Alanine Aminotransferase (ALT) 36 U/L (7-40) Alkaline Phosphatase 151 U/L (46-116) H Aspartate Amino Transferase (AST) 119 U/L (13-40) H Total Bilirubin 0.4 mg/dL (0.2-1.0) Urinalysis Test 02/20/25 05:30 Urine Color Yellow (Yellow) Urine Clarity Clear (Clear) Urine pH 6.0 (5.0-9.0) Urine Specific [place] > 1.050 (1.001-1.035) Urine Protein 1+ (Negative) H Urine Ketones Trace (Negative) Urine Blood 2+ /uL (Negative) H Urine Nitrite Negative (Negative) Urine Bilirubin Negative (Negative) Urine Urobilinogen Normal mg/dL (Negative) Urine Leukocyte Esterase Negative /uL (Negative) Urine RBC 2 /hpf (0 - 4) Urine Microscopic WBC 1 /HPF (0-5) Urine Squamous Epithelial Cells Few /hpf (<5) Urine Bacteria None seen /hpf (None Seen) Urine Mucus Few (None Seen) Urine Glucose 4+ mg/dL (Normal) H Microbiology Microbiology Date/Time Source Procedure Growth Status 02/20/25 05:30 Voided Urine Urine Culture - Final Complete 02/20/25 01:04 Nose MRSA Screen - Final Complete 02/20/25 00:00 Blood Blood Culture - Preliminary NO GROWTH AFTER 48 HOURS OF INCUBATION. Resulted Labs and/or images reviewed: Labs reviewed by me, Image(s) reviewed by me Assessment/Plan Assessment/Plan Impression: -STEMI involving LAD -multivessel coronary artery disease -acute systolic heart failure -diabetes mellitus, uncontrolled -polysubstance abuse including tobacco and amphetamines -ruled out right foot fracture -paroxysmal atrial tachycardia -acute hypoxic respiratory failure -dyslipidemia - probable CLL -peripheral arterial disease Plan: Events: ST elevations improving. Heart rate now controlled -continue Brilinta and aspirin -continue statin -continue metoprolol, decrease Entresto to half a tablet b.i.d.. Add Jardiance -O2 supplementation to keep saturation greater than 90% -p.r.n. Bronchodilators -transferred to telemetry floor -social service consultation for [employer] -repeat labs in a.m. Critical care time spent with patient discussing and formulating plan of care: 40 minutes. This does not include time spent performing procedures. This medical document was created using an electronic medical record system with eyetok dictation system. Although this document has been carefully reviewed, there may still be some phonetic and typographical errors. These areas are purely typographical due to imperfections of the software programs, and do not reflect any compromise in the patient's medical care. Plan discussed with: Patient, Other (RN) My Orders Orders - NOMI DUNCAN NP Procedure Category Date Status Time Electrocardigram EKG 02/21/25 Resulted 14:59 Hydrocodone-Acet PHA 02/22/25 Logged 5/325mg Tab (Aragon 09:30 Transfer Orders XFER 02/22/25 Transmitted 09:27 Date of Service: Feb 22, 2025 Billing Provider: NOMI DUNCAN NP Common Visit Codes: 19589-[id number] CARE 30-74 MIN NOMI DUNCAN NP Feb 22, 2025 09:38
[2025-02-22] MEDS: SACUBITRIL-VALSARTAN 24mg/26mg TAB PO SCH (12:50)
--- NOTE | 2025-02-22 13:47 | DVHPNRES ---
Progress Note Date Seen: Feb 22, 2025 Resident Creating Document: MACRINA STEPHENS RESIDENT Medical Necessity Reason Pt with a Central, PICC or Fol: No Subjective Review of Systems Patient seen and examined at bedside No new complaints Objective vital signs Vital Sign Date Time Temp Pulse Resp B/P (MAP) Pulse Ox O2 Delivery O2 Flow Rate FiO2 02/22/25 12:49 102/50 02/22/25 10:00 100 02/22/25 09:38 20 02/22/25 06:30 97 02/22/25 04:30 98.5 98.5 02/21/25 20:00 Nasal Cannula* 2 28 Total Intake and Output 02/21/25 02/21/25 02/22/25 15:00 23:00 07:00 Intake Total 25.0 ml 600 ml 615 ml Output Total 1200 ml Balance 25.0 ml -600 ml 615 ml medications Current Medications Medications Dose Ordered Sig/Scott Route Start Time Stop Time Status Last Admin Dose Admin Nitroglycerin 0.4 mg Q5MINP PRN SL 02/19/25 22:15 Morphine Sulfate 2 mg Q30M PRN IV 02/19/25 22:15 Aspirin 81 mg DAILY PO 02/20/25 10:00 02/22/25 12:54 81 MG Atorvastatin Calcium 80 mg HS PO 02/20/25 22:00 02/21/25 22:01 80 MG Ticagrelor 90 mg BID PO 02/20/25 10:00 02/22/25 12:49 90 MG Metoprolol Succinate 25 mg DAILY PO 02/20/25 10:00 Pantoprazole Sodium 40 mg DAILY IV 02/20/25 10:00 02/22/25 12:49 40 MG Enoxaparin Sodium 40 mg DAILY SC 02/20/25 10:00 02/22/25 12:52 40 MG Morphine Sulfate 1 mg Q4HP PRN IV 02/20/25 02:30 02/22/25 09:08 1 MG Dextrose 50 ml UD PRN IV 02/20/25 12:15 Insulin Glargine 20 units QAM SC 02/21/25 07:00 02/22/25 06:48 20 UNITS Insulin Human Lispro ACHS SC 02/21/25 07:00 02/22/25 11:30 9 UNITS Diagnostic Test (Pha) 1 strip ACHS 02/21/25 07:00 02/22/25 13:01 1 STRIP Furosemide 40 mg DAILY IV 02/22/25 06:00 02/22/25 12:49 40 MG Empaglifozin 10 mg DAILY PO 02/21/25 10:00 02/22/25 12:54 10 MG Insulin Human Lispro 7 units AC SC 02/21/25 17:00 02/22/25 11:30 7 UNITS Midodrine 5 mg TID PRN PO 02/22/25 00:00 Sacubitril/ Valsartan 0.5 tab BID PO 02/22/25 10:00 02/22/25 12:50 0.5 TAB Acetaminophen/ Hydrocodone Bitart 1 tab Q4HPRN PRN PO 02/22/25 09:30 Examination Examination General Appearance: Alert, Oriented X3, Cooperative, No acute distress HEENT: EOMI Respiratory: Clear to auscultation, Normal air movement Cardiovascular: Regular rate, Normal S1, Normal S2 Abdominal: Normal bowel sounds Extremities: No cyanosis, No edema, Normal pulses, No tenderness/swelling, bluish discoloration of 1st toe and 4th toe right foot Skin: No rashes, No breakdown Neuro: Normal gait, Normal speech, Strength at 5/5 X4 ext, Normal tone, Sensation intact, Cranial nerves 3-12 NL, Reflexes 2+ Psych/Mental Status: Mental status NL, Mood NL laboratory and microbiology Laboratory Tests 02/22/25 04:43 Test 02/22/25 04:43 Range/Units Serum Glucose 216 H 74-106 mg/dL Microbiology Date/Time Source Procedure Growth Status 02/20/25 05:30 Voided Urine Urine Culture - Final Complete 02/20/25 01:04 Nose MRSA Screen - Final Complete 02/20/25 00:00 Blood Blood Culture - Preliminary NO GROWTH AFTER 48 HOURS OF INCUBATION. Resulted Problem List/Assessment/Plan Problem List/Assessment/Plan Uncontrolled diabetes mellitus type 2, HbA1c 12.1 on 02/19/2025 STEMI Multivessel coronary artery disease Acute systolic #Heart failure Questionable CLL Severe peripheral artery disease Dyslipidemia Transaminitis Paroxysmal atrial tachycardia Plan/recommendation Dr. 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 given high fasting morning glucose -Increase lispro to 10 unit Subcu before each meal given high pre-meal glucose -Continue lispro sliding scale a.c. HS -Q.4 Accu-Chek -Continue current management as per hospitalist and special education teacher for heart failure and STEMI Plan discussed with: Patient, Other (RN) My Orders My Orders Orders - MACRINA STEPHENS Procedure Category Date Status Time Insulin Lispro PHA 02/21/25 In Process (Human) (Humalog) 17:00 Communication Order ORDERS 02/21/25 Transmitted 16:12 Dietary Evaluation Review Comments: Monitor PO intakes of CCHO-60 cardiac diet Diabetic education upon D/C Expected Outcomes/Goals: ccontrolled blood sugar, gradual wt loss MACRINA STEPHENS RESIDENT Feb 22, 2025 13:46
[2025-02-22] MEDS: INSULIN LANTUS (GLARGINE) 1 /0.01ml (100units/ml) SC ONE (14:00)
[2025-02-22] MEDS: HYDROcodone-ACET 5/325MG TAB PO PRN (16:19)
[2025-02-22] MEDS: INSULIN LISPRO (HUMAN) 100 UNITS/ML ML SC SCH (17:16)
--- NOTE | 2025-02-22 21:21 | DVHPN2 ---
Progress Note - Dictate Date Seen: Feb 22, 2025 Medical Necessity Reason Pt with a Central, PICC or Fol: No Subjective Patient was seen and evaluated in follow up. The patient has been downgraded to tele bed. Patient is on 2 LPM NC. WBC elevated at 33.4. BS elevated in the 200s. MRSA is negative. Prelim blood cultures are negative. Echocardiogram shows LV EF of 35%. Telemetry reviewed. vital signs Vital Sign Date Time Temp Pulse Resp B/P (MAP) Pulse Ox O2 Delivery O2 Flow Rate FiO2 02/22/25 18:05 98 18 96/53 02/22/25 17:00 97.4 96 97.4 02/22/25 08:00 Nasal Cannula* 2 28 Total Intake and Output 02/21/25 02/21/25 02/22/25 15:00 23:00 07:00 Intake Total 25.0 ml 600 ml 615 ml Output Total 1200 ml Balance 25.0 ml -600 ml 615 ml medications Current Medications Medications Dose Ordered Sig/Scott Route Start Time Stop Time Status Last Admin Dose Admin Nitroglycerin 0.4 mg Q5MINP PRN SL 02/19/25 22:15 Morphine Sulfate 2 mg Q30M PRN IV 02/19/25 22:15 Aspirin 81 mg DAILY PO 02/20/25 10:00 02/22/25 12:54 81 MG Atorvastatin Calcium 80 mg HS PO 02/20/25 22:00 02/21/25 22:01 80 MG Ticagrelor 90 mg BID PO 02/20/25 10:00 02/22/25 12:49 90 MG Metoprolol Succinate 25 mg DAILY PO 02/20/25 10:00 Pantoprazole Sodium 40 mg DAILY IV 02/20/25 10:00 02/22/25 12:49 40 MG Enoxaparin Sodium 40 mg DAILY SC 02/20/25 10:00 02/22/25 12:52 40 MG Morphine Sulfate 1 mg Q4HP PRN IV 02/20/25 02:30 02/22/25 17:35 1 MG Dextrose 50 ml UD PRN IV 02/20/25 12:15 Insulin Human Lispro ACHS SC 02/21/25 07:00 02/22/25 07:00 6 UNITS Diagnostic Test (Pha) 1 strip ACHS 02/21/25 07:00 02/22/25 17:08 1 STRIP Furosemide 40 mg DAILY IV 02/22/25 06:00 02/22/25 12:49 40 MG Empaglifozin 10 mg DAILY PO 02/21/25 10:00 02/22/25 12:54 10 MG Midodrine 5 mg TID PRN PO 02/22/25 00:00 Sacubitril/ Valsartan 0.5 tab BID PO 02/22/25 10:00 02/22/25 12:50 0.5 TAB Acetaminophen/ Hydrocodone Bitart 1 tab Q4HPRN PRN PO 02/22/25 09:30 02/22/25 16:19 1 TAB Insulin Glargine 24 units QAM SC 02/23/25 07:00 Insulin Human Lispro 10 units AC SC 02/22/25 17:00 02/22/25 17:16 10 UNITS objective GENERAL: Alert and oriented x 3. No acute distress. EYES: PERRL, EOMI. Anicteric. HENT: Moist mucous membranes. LUNGS: Clear to auscultation bilaterally. CARDIOVASCULAR: Regular rate and rhythm. ABDOMEN: Soft, nontender and nondistended. EXTREMITIES: No edema. NEUROLOGIC: No focal neurological deficits. SKIN: Warm, dry. laboratory and microbiology Laboratory Tests 02/22/25 04:43 Test 02/22/25 04:43 Range/Units Serum Glucose 216 H 74-106 mg/dL Problem List STEMI. DM. HTN. Assessment/Plan Continued all current supportive medical care. Morphine and [place] for pain. Aspirin, Lipitor, Metoprolol, Brilinta. IV antibiotics as ordered. DVT and GI prophylactics. Diuretics with Lasix. Entresto. Additional plan as per the hospital course. Dietary Evaluation Review Comments: Monitor PO intakes of CCHO-60 cardiac diet Diabetic education upon D/C Expected Outcomes/Goals: ccontrolled blood sugar, gradual wt loss Plan discussed with: Patient JASMIN COREY MD Feb 22, 2025 21:21
[2025-02-23 00:49] VITALS: BP 106/57; PULSE 88; RESP 19; TEMP 98; O2SAT 93
[2025-02-23 04:56] VITALS: BP 121/69; PULSE 94; RESP 18; TEMP 98.2; O2SAT 90
[2025-02-23] MEDS: INSULIN LANTUS (GLARGINE) 1 /0.01ml (100units/ml) SC SCH (06:38)
[2025-02-23 07:31] LABS: Hematocrit 41.5 % (36.0-46.0); Hemoglobin 14.0 g/dL (12.2-16.2); Mean Corpuscular Hemoglobin 28.1 pg (28.0-32.0); Mean Corpuscular Volume 83.4 fL (80.0-100.0)
[2025-02-23 07:38] LABS: Chloride 100 mmol/L (98-107); Sodium 137 mmol/L (136-145)
[2025-02-23 07:39] LABS: Anion Gap 11 (5-15); Carbon Dioxide 26 mmol/L (20-31)
[2025-02-23 07:40] LABS: Calcium 9.2 mg/dL (8.7-10.4)
[2025-02-23 07:45] LABS: BUN/Creatinine Ratio 22.0 (10.0-20.0); Blood Urea Nitrogen 22 mg/dL (9-23); Magnesium 2.0 mg/dL (1.6-2.6)
[2025-02-23 07:47] LABS: Glucose 186 mg/dL (74-106); Potassium 3.5 mmol/L (3.5-5.1)
[2025-02-23 08:00] VITALS: PULSE 72
[2025-02-23 08:24] VITALS: PULSE 94; RESP 14; O2SAT 93
[2025-02-23 08:36] LABS: Total Cells Counted 100.0 (100)
[2025-02-23 08:54] VITALS: BP 107/63; PULSE 87; RESP 18; TEMP 98.4; O2SAT 20
[2025-02-23] MEDS ORDERED: TICA90TA PO (10:19)
[2025-02-23] MEDS ORDERED: FURO1TAB33 PO (10:19)
[2025-02-23] MEDS ORDERED: EMPA1TAB PO (10:19)
[2025-02-23] MEDS ORDERED: ATOR-47 PO (10:19)
[2025-02-23] MEDS ORDERED: SACU1TAB PO (10:19)
[2025-02-23] MEDS ORDERED: ASPI1TAB20 PO (10:19)
[2025-02-23] MEDS ORDERED: POTA8TAB38 PO (10:19)
--- NOTE | 2025-02-23 10:27 | DVHDS2 ---
Discharge Summary Date of Admission Feb 19, 2025 at 22:03 Date of Discharge: Feb 23, 2025 Admitting Diagnosis STEMI Labs/Diagnostic Data: Laboratory Results Test 02/23/25 05:24 02/22/25 16:18 02/22/25 00:15 02/21/25 09:08 White Blood Count 30.3 10^3/uL (4.4-10.8) Red Blood Count 4.98 10^6/uL (4.0-5.20) Hemoglobin 14.0 g/dL (12.2-16.2) Hematocrit 41.5 % (36.0-46.0) Mean Corpuscular Volume 83.4 fL (80.0-100.0) Mean Corpuscular Hemoglobin 28.1 pg (28.0-32.0) Mean Corpuscular Hemoglobin Concent 33.7 g/dL (32.0-36.0) Red Cell Distribution Width 15.0 % (11.8-14.3) Platelet Count 304 10^3/uL (140-450) Mean Platelet Volume 8.2 fL (6.9-10.8) Neutrophils (%) (Auto) % (37.0-80.0) Lymphocytes (%) (Auto) % (10.0-50.0) Monocytes (%) (Auto) % (0.0-12.0) Basophils (%) (Auto) % (0.0-2.0) Neutrophils # (Auto) 10 ^3/uL (1.6-8.6) Lymphocytes # (Auto) 10 ^3/uL (0.4-5.4) Monocytes # (Auto) 10 ^3/uL (0-1.3) Differential Total Cells Counted 100.0 (100) Neutrophils % (Manual) 31 (37.0-80.0) Band Neutrophils % (Manual) 0 Lymphocytes % (Manual) 56 (10.0-50.0) Monocytes % (Manual) 3 (0-12) Eosinophils % (Manual) 3 (0-7) Basophils % (Manual) 0 (0.0-2.0) Metamyelocytes % (manual) 1 Myelocytes % (Manual) 0 Promyelocytes % (Manual) 0 Blast Cells % (Manual) 0 Reactive Lymphocytes 6 Platelet Estimate Adequate Sodium Level 137 mmol/L (136-145) Potassium Level 3.5 mmol/L (3.5-5.1) Chloride Level 100 mmol/L (98-107) Carbon Dioxide Level 26 mmol/L (20-31) Anion Gap 11 (5-15) Blood Urea Nitrogen 22 mg/dL (9-23) Creatinine 1.00 mg/dL (0.550-1.02) Glomerular Filtration Rate Calc 63 mL/min (>90) BUN/Creatinine Ratio 22.0 (10.0-20.0) Serum Glucose 186 mg/dL (74-106) Calcium Level 9.2 mg/dL (8.7-10.4) Magnesium Level 2.0 mg/dL (1.6-2.6) POC Glucose 205 mg/dl (70-106) Lactic Acid Level 1.0 mmol/L (0.4-2.0) Total Bilirubin 0.4 mg/dL (0.2-1.0) Aspartate Amino Transferase (AST) 119 U/L (13-40) Alanine Aminotransferase (ALT) 36 U/L (7-40) Alkaline Phosphatase 151 U/L (46-116) Total Protein 6.4 g/dL (5.7-8.2) Albumin 3.9 g/dL (3.2-4.8) Anisocytosis (manual) Slight Troponin I High Sensitivity 31945 ng/L (</=34) Test 02/20/25 05:30 02/20/25 04:28 02/19/25 20:59 Urine Color Yellow (Yellow) Urine Clarity Clear (Clear) Urine pH 6.0 (5.0-9.0) Urine Specific Jansen > 1.050 (1.001-1.035) Urine Protein 1+ (Negative) Urine Ketones Trace (Negative) Urine Blood 2+ /uL (Negative) Urine Nitrite Negative (Negative) Urine Bilirubin Negative (Negative) Urine Urobilinogen Normal mg/dL (Negative) Urine Leukocyte Esterase Negative /uL (Negative) Urine RBC 2 /hpf (0 - 4) Urine Microscopic WBC 1 /HPF (0-5) Urine Squamous Epithelial Cells Few /hpf (<5) Urine Bacteria None seen /hpf (None Seen) Urine Mucus Few (None Seen) Urine Glucose 4+ mg/dL (Normal) Urine Opiates Screen Pos (NEGATIVE) Urine Fentanyl Screen Pos (NEGATIVE) Urine Barbiturates Screen Neg (NEGATIVE) Urine Phencyclidine Screen Neg (NEGATIVE) Urine Amphetamines Screen Pos (NEGATIVE) Urine Benzodiazepines Screen Pos (NEGATIVE) Urine Cocaine Screen Neg (NEGATIVE) Urine Cannabinoids Screen Neg (NEGATIVE) Triglycerides Level 482 mg/dL (< 150) Cholesterol Level 205 mg/dL (< 200) LDL Cholesterol mg/dL (< 100) HDL Cholesterol 40 mg/dL (40-59) Smudge Cells 47 /100 WBC Large Platelets Few Microcytosis Slight Macrocytosis Slight Prothrombin Time 10.3 sec (9.3-11.8) Prothrombin Time INR 0.97 (0.9-1.15) Activated Partial Thromboplast Time 25.9 SEC (24.5-34.5) Hemoglobin A1c 12.1 % A1C (<5.7) Phosphorus Level 3.8 mg/dL (2.4-5.1) Direct Bilirubin < 0.1 mg/dL (<0.3) B-Type Natriuretic Peptide 122.43 pg/mL (0-100) Vitamin B12 Level 741 pg/mL (211-911) Vitamin D 25-Hydroxy 27.3 ng/mL (30.0-100) Thyroid Stimulating Hormone (TSH) 1.69 uIU/mL (0.55-4.78) Other Laboratory Tests 02/23/25 05:24 Brief Hx & Hospital Course: History of Present Illness Cass Zhong this is a 65-year-old female patient who presents to ED with chief complaint of retrosternal oppressive chest pain in Functional Class IV which started at 11:00 a.m. today with intensity eight-9/10, radiating towards left ear, with no relieving factors, prompting her visit to the ED at emergency department 8:50 p.m.. Patient reports taking 325 mg of aspirin at home, with no relief of symptoms. Per patient she presented to episodes of this similar pain, two weeks back in both Sundays, which starting Functional Class II and was relieved with rest, and only lasted 1 hour both times. She denies dyspnea, palpitation, syncope in any other associated symptoms. Course of hospitalization: Patient was taken to the cardiac catheterization lab, for which she was found to have multivessel disease including RCA with collateral circulation from the left system, as well as 100% occlusion of mid LAD. Patient underwent thrombectomy, PTCA, as well as stent placement. Patient was placed on dual antiplatelet therapy with Brilinta and aspirin. Echocardiogram reveals ejection fraction of 35%, for which guideline directed medical therapy was initiated with beta- jae, MELODY inhibitor, GLP 1, statin, Lasix, as well as potassium replacement. Patient's blood sugars were found to be severely elevated for which endocrinology was consulted by admitting hospitalist. Blood sugars are now improved. Patient will be discharged home with a LifeVest given her poor ejection fraction as well as diagnosis of STEMI. She will be continued on Toprol-XL, Entresto, Jardiance, Lasix, potassium replacement, Brilinta, aspirin, as well as resuming home antidiabetic medications. Patient is agreeable with discharge plan. All questions answered. Physical examination General: Alert and Oriented x3. No acute distress. Well-nourished. Eyes: EOMI. Anicteric. HENT: Moist mucous membranes. Lungs: Clear to auscultation bilaterally. No accessory muscle use. Cardiovascular: Regular rate and rhythm. No murmur. No JVD. Abdomen: Soft, non-tender and non-distended. No palpable masses. Extremities: No edema. Non-tender. Skin: No rashes or lesions. Warm. Neurologic: No focal neurological deficits. CN II-XII grossly intact, but not individually tested. Psychiatric: Cooperative. Appropriate mood and affect. Total time spent with patient discussing and formulating plan of care: 35 minutes. This medical document was created using an electronic medical record system with [employer] (formerly [employer] dictation system. Although this document has been carefully reviewed, there may still be some phonetic and typographical errors. These areas are purely typographical due to imperfections of the software programs, and do not reflect any compromise in the patient's medical care. Consults/Reason for consult Cardiology: STEMI Operations or Procedures PTCA with stent placement and thrombectomy Condition at Discharge: Guarded Final Diagnosis/Problems List Stemi involving LAD -STEMI involving LAD -multivessel coronary artery disease -acute systolic heart failure -diabetes mellitus, uncontrolled -polysubstance abuse including tobacco and amphetamines -ruled out right foot fracture -paroxysmal atrial tachycardia -acute hypoxic respiratory failure -dyslipidemia - probable CLL -peripheral arterial disease Discharge Disposition: Home Discharge Instruct/Medications Diet: Cardiac 2g Na,low cholest Activity: No Restrictions, As Tolerated Follow Up/Referral: Follow up with Dr. Grier in 1-2 weeks Follow up with the PCP in 1-2 weeks Medications: Entresto half a tablet b.i.d. Toprol-XL 25 mg p.o. daily Lasix 20 mg p.o. daily Klor-Con 8 mEq use p.o. daily Jardiance 10 mg p.o. daily Brilinta 90 mg p.o. b.i.d. Aspirin 81 mg p.o. daily Continue home antidiabetic medications Scheduled Amlodipine Besylate (Amlodipine Besylate), 5 MG PO DAILY, (Reported) Aspirin (Aspir-81), 1 TAB PO DAILY Atorvastatin Calcium (Atorvastatin Calcium), 40 MG PO DAILY, (Reported) Atorvastatin Calcium (Atorvastatin Calcium), 1 TAB PO DAILY Empagliflozin (Jardiance), 10 MG PO DAILY Furosemide (Lasix), 1 TAB PO DAILY Glipizide (Glipizide), 10 MG PO BIDWM, (Reported) Ibuprofen (Ibuprofen), 1 TAB PO TID Metoprolol Succinate (Toprol Xl), 1 TAB PO DAILY, (Reported) Potassium Chloride (Klor-Con 8), 8 MEQ PO DAILY Sacubitril-Valsartan (Entresto 24-26 mg), 0.5 TAB PO BID Sitagliptin Phosphate (Januvia), 30 MG PO DAILY, (Reported) Ticagrelor Base (Brilinta), 90 MG PO BID Miscellaneous Medications Aspirin (Aspirin), 81 MG PO, (Reported) 36 Discharge Statement: "Patient was advised to return to the ER or call 911 if any headaches, dizziness, shortness of breath, chest pain, abdominal pain, bleeding, fevers, or worsening of medical condition. Patient was counseled about treatment plan, medications, possible side effects, patientverbalized understanding. All questions were answered to the best of my ability. This discharge took greater then 30 minutes in planning, reviewing documentation, counseling the patient, and discussing with other team members." ASSESSMENT ASSESSMENT Assessment Stemi involving LAD Date of Service: Feb 23, 2025 Billing Provider: NOMI DUNCAN NP Common Visit Codes: 86116-DYG/OBS DISCH DAY >30min NOMI DUNCAN NP Feb 23, 2025 10:27
[2025-02-23] MEDS ORDERED: HYDR-4902 PO (10:30)
[2025-02-23 11:09] VITALS: BP 107/63; PULSE 87; TEMP 36.9
--- NOTE | 2025-02-23 11:21 | DVHPNRES ---
Progress Note Date Seen: Feb 23, 2025 Resident Creating Document: MACRINA STEPHENS RESIDENT Medical Necessity Reason Pt with a Central, PICC or Fol: No Subjective Review of Systems Patient seen and examined at bedside No new complaint As per patient she has been discharged by primary care team. Patient will follow up with primary care doctor salbador castano and bag loader Dr. Anju Grier ROS continue Complaining of right foot 1st toe and 4th toe discoloration and pain. Constitutional: No: Fever, Chills, Sweats, Weakness, Malaise, Other Eyes: No: Pain, Vision change, Conjunctivae inflammation, Eyelid inflammation, Other, Redness ENT: No: Ear pain, Ear discharge, Nose pain, Nose discharge, Nose congestion, Mouth pain, Mouth swelling, Throat pain, Throat swelling, Other Respiratory: No: Cough, Dry, Shortness of breath, SOB with excertion, Wheezing, Hemoptysis, Pleuritic Pain, Sputum, Wheezing, Other Cardiovascular: No: Chest Pain, Palpitations, Orthopnea, Paroxysmal Noc. Dyspnea, Edema, Lt Headedness, Other Gastrointestinal: No: Nausea, Vomiting, Abdominal Pain, Diarrhea, Constipation, Melena, Hematochezia, Other Musculoskeletal: No: other, neck pain, shoulder pain, arm pain, back pain, hand pain, leg pain, foot pain Neurological:; No: Weakness, Numbness, Incoordination, Change in speech, Confusion, Seizures Objective vital signs Vital Sign Date Time Temp Pulse Resp B/P (MAP) Pulse Ox O2 Delivery O2 Flow Rate FiO2 02/23/25 11:09 36.9 87 02/23/25 09:35 107/63 02/23/25 08:54 18 20 02/23/25 08:24 Nasal Cannula* 2 28 Total Intake and Output 02/22/25 02/22/25 02/23/25 15:00 23:00 07:00 Intake Total 500 ml Output Total 480 ml Balance 20 ml medications Current Medications Medications Dose Ordered Sig/Scott Route Start Time Stop Time Status Last Admin Dose Admin Nitroglycerin 0.4 mg Q5MINP PRN SL 02/19/25 22:15 Morphine Sulfate 2 mg Q30M PRN IV 02/19/25 22:15 Aspirin 81 mg DAILY PO 02/20/25 10:00 02/23/25 09:33 81 MG Atorvastatin Calcium 80 mg HS PO 02/20/25 22:00 02/22/25 21:14 80 MG Ticagrelor 90 mg BID PO 02/20/25 10:00 02/23/25 09:34 90 MG Metoprolol Succinate 25 mg DAILY PO 02/20/25 10:00 02/23/25 09:35 25 MG Pantoprazole Sodium 40 mg DAILY IV 02/20/25 10:00 02/23/25 09:33 40 MG Enoxaparin Sodium 40 mg DAILY SC 02/20/25 10:00 02/23/25 09:34 40 MG Morphine Sulfate 1 mg Q4HP PRN IV 02/20/25 02:30 02/22/25 17:35 1 MG Dextrose 50 ml UD PRN IV 02/20/25 12:15 Insulin Human Lispro ACHS SC 02/21/25 07:00 02/23/25 06:38 3 UNITS Diagnostic Test (Pha) 1 strip ACHS 02/21/25 07:00 02/23/25 06:39 1 STRIP Furosemide 40 mg DAILY IV 02/22/25 06:00 02/23/25 09:35 40 MG Empaglifozin 10 mg DAILY PO 02/21/25 10:00 02/23/25 09:33 10 MG Midodrine 5 mg TID PRN PO 02/22/25 00:00 Sacubitril/ Valsartan 0.5 tab BID PO 02/22/25 10:00 02/23/25 09:33 0.5 TAB Acetaminophen/ Hydrocodone Bitart 1 tab Q4HPRN PRN PO 02/22/25 09:30 02/23/25 04:41 1 TAB Insulin Glargine 24 units QAM SC 02/23/25 07:00 02/23/25 06:38 24 UNITS Insulin Human Lispro 10 units AC SC 02/22/25 17:00 02/23/25 06:38 10 UNITS Examination Examination General Appearance: Alert, Oriented X3, Cooperative, No acute distress HEENT: EOMI Respiratory: Clear to auscultation, Normal air movement Cardiovascular: Regular rate, Normal S1, Normal S2 Abdominal: Normal bowel sounds Extremities: No cyanosis, No edema, Normal pulses, No tenderness/swelling, bluish discoloration of 1st toe and 4th toe right foot Skin: No rashes, No breakdown Neuro: Normal gait, Normal speech, Strength at 5/5 X4 ext, Normal tone, Sensation intact, Cranial nerves 3-12 NL, Reflexes 2+ Psych/Mental Status: Mental status NL, Mood NL laboratory and microbiology Laboratory Tests 02/23/25 05:24 Test 02/23/25 05:24 Range/Units Serum Glucose 186 H 74-106 mg/dL Microbiology Date/Time Source Procedure Growth Status 02/20/25 05:30 Voided Urine Urine Culture - Final Complete 02/20/25 01:04 Nose MRSA Screen - Final Complete 02/20/25 00:00 Blood Blood Culture - Preliminary NO GROWTH AFTER 72 HOURS OF INCUBATION. Resulted Problem List/Assessment/Plan Problem List/Assessment/Plan Uncontrolled diabetes mellitus type 2, HbA1c 12.1 on 02/19/2025 STEMI Multivessel coronary artery disease Acute systolic #Heart failure Questionable CLL Severe peripheral artery disease Dyslipidemia Transaminitis Paroxysmal atrial tachycardia Plan/recommendation Dr. Baird(Endocrinology) -Continue diabetic diet -continue Lantus to 24 unit subcu q.a.m. given high fasting morning glucose -continue lispro to 10 unit Subcu before each meal given high pre-meal glucose -Continue lispro sliding scale a.c. HS -Q.4 Accu-Chek -Continue current management as per hospitalist and bag loader for heart failure and STEMI Patient will need continuous outpatient follow up for uncontrolled diabetes mellitus in endocrine clinic. As per Patient will follow with primary care physician Dr. Carmen, and bag loader Dr. Anju Grier Plan discussed with: Patient My Orders My Orders Orders - MACRINA STEPHENS Procedure Category Date Status Time Insulin Lantus PHA 02/23/25 In Process (Glargine) (Lantus) 07:00 Insulin Lispro PHA 02/22/25 In Process (Human) (Humalog) 17:00 Dietary Evaluation Review Comments: Monitor PO intakes of CCHO-60 cardiac diet Diabetic education upon D/C Expected Outcomes/Goals: ccontrolled blood sugar, gradual wt loss MACRINA STEPHENS RESIDENT Feb 23, 2025 11:21
[2025-02-23] MEDS ORDERED: ALCO70PA28 XX (11:53)
[2025-02-23] MEDS ORDERED: INSLISPI SC (11:53)
[2025-02-23] MEDS ORDERED: LANC28MI44 XX (11:53)
[2025-02-23] MEDS ORDERED: INSLANTI SC (11:53)
[2025-02-23] MEDS ORDERED: BLOO1KIT60 XX (11:53)
[2025-02-23] MEDS ORDERED: INSU0.5M41 XX (11:53)
--- NOTE | 2025-02-23 21:28 | DVHPN2 ---
Progress Note - Dictate Date Seen: Feb 23, 2025 Medical Necessity Reason Pt with a Central, PICC or Fol: No Subjective Patient was seen and evaluated in follow up. Patient has no new complaints at this time. Patient denies any cardiac symptoms. Patient is cardiac stable for discharge. I advised the patient to follow up with me in my office. Telemetry reviewed. vital signs Vital Sign Date Time Temp Pulse Resp B/P (MAP) Pulse Ox O2 Delivery O2 Flow Rate FiO2 02/23/25 11:09 36.9 87 02/23/25 09:35 107/63 02/23/25 08:54 18 20 02/23/25 08:24 Nasal Cannula* 2 28 Total Intake and Output 02/22/25 02/22/25 02/23/25 15:00 23:00 07:00 Intake Total 500 ml Output Total 480 ml Balance 20 ml medications Current Medications Medications Dose Ordered Sig/Scott Route Start Time Stop Time Status Last Admin Dose Admin Nitroglycerin 0.4 mg Q5MINP PRN SL 02/19/25 22:15 Morphine Sulfate 2 mg Q30M PRN IV 02/19/25 22:15 Aspirin 81 mg DAILY PO 02/20/25 10:00 02/23/25 09:33 81 MG Atorvastatin Calcium 80 mg HS PO 02/20/25 22:00 02/22/25 21:14 80 MG Ticagrelor 90 mg BID PO 02/20/25 10:00 02/23/25 09:34 90 MG Metoprolol Succinate 25 mg DAILY PO 02/20/25 10:00 02/23/25 09:35 25 MG Pantoprazole Sodium 40 mg DAILY IV 02/20/25 10:00 02/23/25 09:33 40 MG Enoxaparin Sodium 40 mg DAILY SC 02/20/25 10:00 02/23/25 09:34 40 MG Morphine Sulfate 1 mg Q4HP PRN IV 02/20/25 02:30 02/22/25 17:35 1 MG Dextrose 50 ml UD PRN IV 02/20/25 12:15 Insulin Human Lispro ACHS SC 02/21/25 07:00 02/23/25 12:01 6 UNITS Diagnostic Test (Pha) 1 strip ACHS 02/21/25 07:00 02/23/25 11:59 1 STRIP Furosemide 40 mg DAILY IV 02/22/25 06:00 02/23/25 09:35 40 MG Empaglifozin 10 mg DAILY PO 02/21/25 10:00 02/23/25 09:33 10 MG Midodrine 5 mg TID PRN PO 02/22/25 00:00 Sacubitril/ Valsartan 0.5 tab BID PO 02/22/25 10:00 02/23/25 09:33 0.5 TAB Acetaminophen/ Hydrocodone Bitart 1 tab Q4HPRN PRN PO 02/22/25 09:30 02/23/25 04:41 1 TAB Insulin Glargine 24 units QAM SC 02/23/25 07:00 02/23/25 06:38 24 UNITS Insulin Human Lispro 10 units AC SC 02/22/25 17:00 02/23/25 12:00 10 UNITS objective GENERAL: Alert and oriented x 3. No acute distress. EYES: PERRL, EOMI. Anicteric. HENT: Moist mucous membranes. LUNGS: Clear to auscultation bilaterally. CARDIOVASCULAR: Regular rate and rhythm. ABDOMEN: Soft, nontender and nondistended. EXTREMITIES: No edema. NEUROLOGIC: No focal neurological deficits. SKIN: Warm, dry. laboratory and microbiology Laboratory Tests 02/23/25 05:24 Test 02/23/25 05:24 Range/Units Serum Glucose 186 H 74-106 mg/dL Problem List STEMI. DM. HTN. Assessment/Plan Continued all current supportive medical care. Entresto. Midodrine. Diuretics with Lasix. Morphine and [place] for pain. Aspirin, Lipitor, Metoprolol, Brilinta. IV antibiotics as ordered. DVT and GI prophylactics. Additional plan as per the hospital course. Dietary Evaluation Review Comments: Monitor PO intakes of CCHO-60 cardiac diet Diabetic education upon D/C Expected Outcomes/Goals: ccontrolled blood sugar, gradual wt loss Plan discussed with: Patient JASMIN COREY MD Feb 23, 2025 13:52
== END 2025-02-23 15:00 | disposition home or self-care (01) | DRG 321 ==
LOC: ER 20:52 → EDBD 20:52 → OVERFLOW 22:03 → ICU CENTRL 23:20 → TELE-CENTR 02-22 15:09
PROVIDERS: ADMIT Nurse Practitioner Acute Care; ATTEND Nurse Practitioner Acute Care
PROC: 027034Z Dilation of Coronary Artery, One Artery with Drug-eluting Intraluminal Device, Percutaneous Approach (ICD-10-PCS; principal; 2025-02-19)
PROC: 02C03ZZ Extirpation of Matter from Coronary Artery, One Artery, Percutaneous Approach (ICD-10-PCS; 2025-02-19)
PROC: 04HY32Z Insertion of Monitoring Device into Lower Artery, Percutaneous Approach (ICD-10-PCS; 2025-02-19)
PROC: 4A023N7 Measurement of Cardiac Sampling and Pressure, Left Heart, Percutaneous Approach (ICD-10-PCS; 2025-02-19)
PROC: B211YZZ Fluoroscopy of Multiple Coronary Arteries using Other Contrast (ICD-10-PCS; 2025-02-19)
PROC: B215YZZ Fluoroscopy of Left Heart using Other Contrast (ICD-10-PCS; 2025-02-19)
PROC: B240ZZ3 Ultrasonography of Single Coronary Artery, Intravascular (ICD-10-PCS; 2025-02-19)
PROC: B41FYZZ Fluoroscopy of Right Lower Extremity Arteries using Other Contrast (ICD-10-PCS; 2025-02-19)
DX: I21.02 ST elevation (STEMI) myocardial infarction involving left anterior descending coronary artery (principal); I50.21 Acute systolic (congestive) heart failure; J96.01 Acute respiratory failure with hypoxia; C91.10 Chronic lymphocytic leukemia of B-cell type not having achieved remission; I47.19 Other supraventricular tachycardia; E78.5 Hyperlipidemia, unspecified; I11.0 Hypertensive heart disease with heart failure; I25.10 Atherosclerotic heart disease of native coronary artery without angina pectoris; E11.51 Type 2 diabetes mellitus with diabetic peripheral angiopathy without gangrene; R74.01 Elevation of levels of liver transaminase levels; F15.10 Other stimulant abuse, uncomplicated; Z88.7 Allergy status to serum and vaccine; Z91.040 Latex allergy status; Z90.710 Acquired absence of both cervix and uterus; Z90.49 Acquired absence of other specified parts of digestive tract; Z80.3 Family history of malignant neoplasm of breast; Z80.42 Family history of malignant neoplasm of prostate; Z87.891 Personal history of nicotine dependence; Z79.4 Long term (current) use of insulin; Z80.8 Family history of malignant neoplasm of other organs or systems
CPT/HCPCS: 36415; 71045; 73630; 75710; 76700; 80048; 80053; 80061; 80076; 80307; 81001; 82306; 82607; 82962; 83036; 83605; 83735; 83880; 84100; 84443; 84484; 85007; 85027; 85610; 85730; 87040; 87081; 87086; 92941; 92973; 92978; 93005; 93306; 93458; 93925; 96361; 96365; 96375; 99152; 99291; G0378; J1815; J2250; J2470; Q9967

== ENCOUNTER 2025-03-24 06:36 | Inpatient (IN) | payer SELFPAY ==
[~2025-03-24] VITALS: Ht 165.1 cm; Wt 67.7 kg
[~2025-03-24 06:36] MED LIST changes: +ALCO70PA28 XX; +ASPI1TAB20 PO; +ASPI81CH49 PO; +ATOR-47 PO; +ATOR40TA52 PO; +BLOO1KIT60 XX; +EMPA1TAB PO; +FURO1TAB33 PO; +GLIP10TA9 PO; +HYDR-4902 PO; -IBUP-1456 PO; +INSLANTI SC; +INSLISPI SC; +INSU0.5M41 XX; +LANC28MI44 XX; +METO25TA36 PO; +PIPERACILLIN-TAZOB 3.375GM 100 ML IV SCH; +POTA8TAB38 PO; +SACU1TAB PO; +TICA90TA PO
--- NOTE | 2025-03-24 06:48 | ED.PDOC ---
Musculoskeletal HPI Comments This is a 65 year old female MAURICEA presenting to the ED with chief complaint of right foot pain. Patient reports that she has been experiencing worsening right foot pain, swelling, and redness for the past 2-3 weeks. Patient relays that she had a recent [place] in 02/19 with stent placement, pending a scheduled angiogram some time soon from Dr. Grier. EMS states that the patient has a BG level of 315 en route to the ED, not taking her insulin for the past 2 days. Patient denies any chest pain, SOB, numbness, weakness, tingling, fever, chills, or leg pain. Time Seen by MD: 06:44 Primary Care Provider: AZAEL FARLEY Reviewed Notes: Nurses Notes, Director Of Sales Marketing Notes, Medications, Allergies Allergies: Coded Allergies: Tetanus Toxoid (Verified Allergy, Unknown, 03/25/15) Uncoded Allergies: LATEX BANDAIDS (Allergy, Unknown, 03/25/15) Home Meds Active Scripts Isopropyl Alcohol (Alcohol Prep Pad) 70 % Pad, % XX TID, #100 5 Refills TO CELAR INJECTION SITE Prov:MACRINA STEPHENS RESIDENT 02/23/25 Lancets (ACTI-SHARLA LANCETS 28G) 28 G Mis, G XX TID, #100 5 Refills USE FOR SERUM GLUCOSE MEASUREMENT Prov:MACRINA STEPHENS RESIDENT 02/23/25 Insulin Syringe/Needle U-100 (Bd Insulin Syringe Ultraf) 0.5 Mg/31 G Mis, MG XX TID, #100 3 Refills USE FOR INSULIN ADMINISTRATION Prov:MACRINA STEPHENS 02/23/25 Blood Glucose Monitoring Suppl (D-Care Glucometer Kit/Glu W/Device) 1 Kit Kit, KIT XX TID, #1 1 Refill PLEASE MEASURE BLOOD SUGAR THREE TIMES DAILY BEFORE EACH MEAL Prov:MACRINA STEPHENS 02/23/25 Insulin Lispro (Human) (Humalog) 100 Unit/Ml Inj, 10 UNITS SC AC for 30 Days, #5 INJ Prov:MACRINA STEPHENS RESIDENT 02/23/25 Insulin Glargine (Lantus) 100 Unit/Ml Inj, 24 UNITS SC QAM for 30 Days, #5 INJ 3 Refills Prov:MACRINA STEPHENS RESIDENT 02/23/25 Hydrocodone-Acetaminophen (Hydrocodone Bitartrate/AC 5-325 mg) 1 Tab Tab, 1 TAB PO Q8HP PRN for 7 Days, #21 TAB Prov:NOMI DUNCAN COW WASHER 02/23/25 Furosemide (Lasix) 20 Mg Tb, 1 TAB PO DAILY for 30 Days, #30 TAB 1 Refill Prov:NOMI DUNCAN COW WASHER 02/23/25 Potassium Chloride (Klor-Con 8) 8 Meq Tab, 8 MEQ PO DAILY for 30 Days, #30 TAB Prov:NOMI DUNCAN COW WASHER 02/23/25 Sacubitril-Valsartan (Entresto 24-26 mg) 1 Tab Tab, 0.5 TAB PO BID for 30 Days, #30 TAB 2 Refills Prov:NOMI DUNCAN COW WASHER 02/23/25 Aspirin (Aspir-81) 81 Mg Tab, 1 TAB PO DAILY, #30 TAB 5 Refills Prov:NOMI DUNCAN COW WASHER 02/23/25 Ticagrelor Base (BRILINTA) 90 Mg Tab, 90 MG PO BID for 30 Days, #60 TAB 2 Refills Prov:NOMI DUNCAN COW WASHER 02/23/25 Atorvastatin Calcium (ATORVASTATIN CALCIUM) 80 Mg Tab, 1 TAB PO DAILY for 30 Days, #30 TAB 5 Refills Prov:NOMI DUNCAN COW WASHER 02/23/25 Empagliflozin (Jardiance) 10 Mg Tab, 10 MG PO DAILY for 30 Days, #30 TAB 3 Refills Prov:NOMI DUNCAN COW WASHER 02/23/25 Reported Medications Aspirin (Aspirin) 81 Mg Chw, 81 MG PO, TAB.CHEW 02/20/25 Metoprolol Succinate (Toprol Xl) 25 Mg Tab, 1 TAB PO DAILY, #30 TAB 5 Refills 02/20/25 Glipizide (Glipizide) 10 Mg Tab, 10 MG PO BIDWM for 30 Days, MG 02/20/25 Information Source: Patient, Emergency Med Personnel Mode of Arrival: EMS Location: Right Extremity Location: Foot Timing: Weeks Prehospital treatment: None Severity: Moderate Able to Move Extremity: Yes Bear Weight: Limited Pain: Moderate Mechanism: Spontaneous Circumstances: Spontaneous Onset of Symptoms: Spontaneous Symptoms: Swelling, Pain, Erythema DVT Risk Factors: Recent [place] Associated signs and symptoms: Foot pain Past Medical History PAST MEDICAL HISTORY: DM, High Lipids, HTN Surgical History: Appendectomy, Hysterectomy, PTCA, Tonsillectomy 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: No Pertinent 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 Family History Family History: Reviewed,noncontributory to illness Social History Smoker: Cigarettes Alcohol: Denies ETOH Use Drugs: Denies Drug Use Lives In: Home Constitutional: denies: chills, diaphoresis, fatigue, fever, malaise, sweats, weakness, others EENTM: denies: blurred vision, double vision, ear bleeding, ear discharge, ear drainage, ear pain, ear ringing, eye pain, eye redness, hearing loss, mouth pain, mouth swelling, nasal discharge, nose bleeding, nose congestion, nose pain, photophobia, tearing, throat pain, throat swelling, voice changes, others Respiratory: denies: cough, hemoptysis, orthopnea, SOB at rest, shortness of breath, SOB with excertion, stridor, wheezing, others Cardiovascular: denies: chest pain, dizzy spells, diaphoresis, Dyspnea on exertion, edema, irregular heart beat, left arm pain, lightheadedness, palpitations, PND, syncope, others Gastrointestinal: denies: abdomen distended, abdominal pain, blood streaked bowels, constipated, diarrhea, dysphagia, difficulty swallowing, hematemesis, melena, nausea, poor appetite, poor fluid intake, rectal bleeding, rectal pain, vomiting, others Genitourinary: denies: abnormal vagina bleeding, burning, dyspareunia, dysuria, flank pain, frequency, hematuria, incontinence, pain, , vagina discharge, urgency, others Neurological: denies: dizziness, fainting, headache, left sided numbness, left sided weakness, numbness, paresthesia, pre-existing deficit, right sided numbness, right sided weakness, seizure, speech problems, tingling, tremors, weakness, others Musculoskeletal: reports: others (Rt foot pain and discoloration); denies: back pain, gout, joint pain, joint swelling, muscle pain, muscle stiffness, neck pain Integumetry: denies: bruises, change in color, change in hair/nails, dryness, laceration, lesions, lumps, rash, wounds, others Allergic/Immunocompromised: denies: Difficulty Healing, Frequent Infections, Hives, Itching, others Hematologic/Lymphatic: denies: anemia, blood clots, easy bleeding, easy bruising, swollen glands, others Endocrine: denies: excessive hunger, excessive sweating, excessive thirst, excessive urination, flushing, intolerance to cold, intolerance to heat, unexplained weight gain, unexplained weight loss, others Psychiatric: denies: anxiety, bipolar disorder, depression, hopeless, panic disorder, schizophrenia, sleepless, suicidal, others All Other Systems: Reviewed and Negative Physical Exam General Appearance: Moderate Distress, Normal HEENT: Normal ENT Inspection, Pharynx Normal, TMs Normal Neck: Full Range of Motion, Non-Tender, Normal, Normal Inspection Respiratory: Chest Non-Tender, Lungs Clear, No Accessory Muscle Use, No Respiratory Distress, Normal Breath Sounds Cardiovascular: No Edema, No JVD, No Murmur, No Gallop, Normal Peripheral Pulses, Regular Rate/Rhythm Breast Exam: Deferred Gastrointestinal: No Organomegaly, Non Tender, No Pulsatile Mass, Normal Bowel Sounds, Soft Genitalia: Deferred Pelvic: Deferred Rectal: Deferred Extremities: No calf tenderness, Normal capillary refill, Normal inspection, No rmal range of motion, Non-tender, No pedal edema Musculoskeletal : Apperance: Normal Neurologic: 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 Was a procedure done?: No Differential Diagnosis EXT Differential Diagnosis: Cellulitis, Strain X-Ray, Labs, Meds, VS Vital Signs Date Time Temp Pulse Resp B/P (MAP) Pulse Ox O2 Delivery O2 Flow Rate FiO2 03/24/25 06:46 98.5 82 18 127/73 95 98.5 Lab Test 03/24/25 07:12 Range/Units White Blood Count 32.4 *H 4.4-10.8 10^3/uL Red Blood Count 5.57 H 4.0-5.20 10^6/uL Hemoglobin 15.6 12.2-16.2 g/dL Hematocrit 47.2 H 36.0-46.0 % Mean Corpuscular Volume 84.7 80.0-100.0 fL Mean Corpuscular Hemoglobin 28.0 28.0-32.0 pg Mean Corpuscular Hemoglobin Concent 33.1 32.0-36.0 g/dL Red Cell Distribution Width 15.8 H 11.8-14.3 % Platelet Count 370 140-450 10^3/uL Mean Platelet Volume 7.1 6.9-10.8 fL Neutrophils (%) (Auto) 37.0-80.0 % Lymphocytes (%) (Auto) 10.0-50.0 % Monocytes (%) (Auto) 0.0-12.0 % Basophils (%) (Auto) 0.0-2.0 % Neutrophils # (Auto) 1.6-8.6 10 ^3/uL Lymphocytes # (Auto) 0.4-5.4 10 ^3/uL Monocytes # (Auto) 0-1.3 10 ^3/uL Differential Total Cells Counted Pending Neutrophils % (Manual) Pending Band Neutrophils % (Manual) Pending Lymphocytes % (Manual) Pending Monocytes % (Manual) Pending Eosinophils % (Manual) Pending Basophils % (Manual) Pending Metamyelocytes % (manual) Pending Myelocytes % (Manual) Pending Promyelocytes % (Manual) Pending Blast Cells % (Manual) Pending Reactive Lymphocytes Pending Platelet Estimate Pending Sodium Level 136 136-145 mmol/L Potassium Level 4.9 3.5-5.1 mmol/L Chloride Level 102 98-107 mmol/L Carbon Dioxide Level 26 20-31 mmol/L Anion Gap 8 5-15 Blood Urea Nitrogen 15 9-23 mg/dL Creatinine Pending Glomerular Filtration Rate Calc Pending BUN/Creatinine Ratio Pending Serum Glucose Pending Calcium Level 9.7 8.7-10.4 mg/dL Troponin I High Sensitivity 50 *H </=34 ng/L [place] [address] Ph: [phone] DIAGNOSTIC IMAGING Diagnostic Imaging Report : [id number] Signed PATIENT: SUMEET BARRIGA ACCT: [id number] UNIT: [id number] : 1960 LOC: ER ROOM / BED: / AGE / SEX: 65 / F ADM STATUS: REG ER SERVICE 0645 ORDERING PHYSICIAN: JEZ ODELL MD PROCEDURE(s): RFOT2 - R FOOT 2 VIEW XRAY REASON: osteo ORDER NUMBER(s): [id number], ACCESSION NUMBER(s): [id number] XY R FOOT 2 VIEW XRAY, INDICATION: osteo TECHNICAL DATA: Frontal and lateral views were obtained of the right foot. COMPARISON: XY R FOOT 3 VIEW XRAY on DOS: 02/20/25 FINDINGS: No fracture is identified. There is sclerosis in the 5th proximal phalanx. Joint spaces are maintained. Alignment is anatomic. The hallux sesamoids appear normal. Soft tissue swelling in the lateral forefoot at the level of the 5th toe. IMPRESSION: 1. No acute fracture or dislocation. 2. Sclerosis in the 5th proximal phalanx with adjacent soft tissue swelling. This could be related to chronic osteomyelitis in the appropriate clinical setting. MRI is recommended. ATED BY: SIMIN LIU MD DICTATED DATE/TIME: 03/24/25722 SIGNED BY: SIMIN LIU MD SIGNED DATE/TIME: 03/24/25722 CC: [place] [address] Ph: [phone] DIAGNOSTIC IMAGING Diagnostic Imaging Report : [id number] Signed PATIENT: SUMEET BARRIGA ACCT: [id number] UNIT: [id number] : 1960 LOC: ER ROOM / BED: / AGE / SEX: 65 / F ADM STATUS: REG ER SERVICE 1 ORDERING PHYSICIAN: JEZ ODELL MD PROCEDURE(s): CXRP - CHEST PORTABLE REASON: sob ORDER NUMBER(s): [id number], ACCESSION NUMBER(s): [id number] CHEST RADIOGRAPH Indication: sob Technique: Single frontal view of the chest was obtained Comparison: XY CHEST PORTABLE on DOS: 02/22/25 FINDINGS: Lines and Tubes: None Lungs: Bilateral interstitial prominence. No focal consolidation. Pleura: No effusion. No pneumothorax. Cardiomediastinal contours: Cardiomegaly. Bones: No acute osseous abnormality. IMPRESSION: 1. Cardiomegaly with bilateral interstitial prominence which may reflect pulmonary vascular congestion. ATED BY: SIMIN LIU MD DICTATED DATE/TIME: 03/24/25723 SIGNED BY: SIMIN LIU MD SIGNED DATE/TIME: 03/24/25723 CC: [place] [address] Ph: [phone] DIAGNOSTIC IMAGING Diagnostic Imaging Report : [id number] Signed PATIENT: SUMEET BARRIGA ACCT: [id number] UNIT: [id number] : 1960 LOC: ER ROOM / BED: / AGE / SEX: 65 / F ADM STATUS: REG ER SERVICE 1 ORDERING PHYSICIAN: JEZ ODELL MD PROCEDURE(s): RLEAD - Rt Low Ext Art Duplex REASON: Right lower extremity arterial study for discoloration foot ORDER NUMBER(s): [id number], ACCESSION NUMBER(s): [id number] Right Lower Extremity Arterial Duplex Clinical History: Right lower extremity arterial study for discoloration foot Comparison: US BILAT LOW EXT ART DUPLEX on DOS: 02/20/25 Technique: Duplex Doppler evaluation including color Doppler and spectral/pulsed waveform analysis of the lower extremity arteries was performed. Findings: RIGHT: Peak systolic velocities are less than 150 cm/sec. The waveforms are monophasic with diastolic flow. IMPRESSION: No hemodynamically significant stenosis based on peak systolic velocity criteria. Monophasic arterial waveforms are present from the popliteal vein to the dorsalis pedis suggestive of underlying peripheral arterial disease. REFERENCE VALUES, [facility] ([facility]) vascular Imaging Lab Criteria: Peak systolic velocity ranges (in cm/sec) are as follows: <150 cm/s - <20 % stenosis 150-200 cm/s - 20-49% stenosis 200-300 cm/s - 50-75% stenosis >300 cm/s -> 75% stenosis ATED BY: OMARI BONILLA MD DICTATED DATE/TIME: 03/24/25823 SIGNED BY: OMARI BONILLA MD SIGNED DATE/TIME: 03/24/25823 CC: Patient alert. Came in because of right foot pain. Vitals stable. Answering questions. On examination there is redness of the right toes. Chest x-ray reviewed does show mild congestion. Recently had stent placement. X-ray of the right foot does show osteomyelitis. WBC elevated. Sepsis protocol. Establish intravenous access. Was given fluids. Was given Zosyn. Was given clindamycin. Cardiac marker slightly elevated. Continues to smoke cigarettes. Counseled patient on effects of smoking for 15 minutes. Explained to the patient. Continue to monitor. Images Reviewed?: Images reviewed and evaluated by me Time of 1ST Reevaluation: 07:43 Reevaluation 1ST: Unchanged Patient Education/Counseling: Diagnosis, Treatment Family Education/Counseling: No Family Present Departure 1 Departure Time of Disposition: 08:10 Impression: Primary Impression: Osteomyelitis Qualified Codes: M86.9 - Osteomyelitis, unspecified Additional Impression: Demand ischemia Disposition: ADMITTED INPATIENT Admit to: Med Surg Condition: Guarded Critical Care Note Critical Care Time?: Yes (90 min-critical care time only) Stability Stability form required: No Heart Score Heart Score: Heart Score Response (Comments) Value History Highly Suspicious 2 EKG Normal 0 Age >65 2 Risk Factors >3 or Hx ASHD 2 Troponin 1-2 x's Normal limit 1 Total 7 I personally scribed for JEZ ODELL MD ([email or web address]) on 03/24/25 at 06:48. Electronically submitted by Rodrigo Coronado ([email or web address]). I personally scribed for JEZ ODELL MD ([email or web address]) on 03/24/25 at 08:06. Electronically submitted by Rodrigo Coronado ([email or web address]). I personally scribed for JEZ ODELL MD ([email or web address]) on 03/24/25 at 08:28. Electronically submitted by Rodrigo Coronado ([email or web address]). JEZ ODELL MD Mar 24, 2025 06:48
--- NOTE | 2025-03-24 07:25 | DVH ---
XY R FOOT 2 VIEW XRAY, INDICATION: osteo TECHNICAL DATA: Frontal and lateral views were obtained of the right foot. COMPARISON: XY R FOOT 3 VIEW XRAY on DOS: 02/20/25 FINDINGS: No fracture is identified. There is sclerosis in the 5th proximal phalanx. Joint spaces are maintaine d. Alignment is anatomic. The hallux sesamoids appear normal. Soft tissue swelling in the lateral for efoot at the level of the 5th toe. IMPRESSION: 1. No acute fracture or dislocation. 2. Sclerosis in the 5th proximal phalanx with adjacent soft tissue swelling. This could be related t o chronic osteomyelitis in the appropriate clinical setting. MRI is recommended.
--- NOTE | 2025-03-24 07:26 | DVH ---
CHEST RADIOGRAPH Indication: sob Technique: Single frontal view of the chest was obtained Comparison: XY CHEST PORTABLE on DOS: 02/22/25 FINDINGS: Lines and Tubes: None Lungs: Bilateral interstitial prominence. No focal consolidation. Pleura: No effusion. No pneumothorax. Cardiomediastinal contours: Cardiomegaly. Bones: No acute osseous abnormality. IMPRESSION: 1. Cardiomegaly with bilateral interstitial prominence which may reflect pulmonary vascular congestio n.
[2025-03-24 07:38] LABS: Chloride 102 mmol/L (98-107); Hematocrit 47.2 % (36.0-46.0); Hemoglobin 15.6 g/dL (12.2-16.2); Mean Corpuscular Hemoglobin 28.0 pg (28.0-32.0); Mean Corpuscular Volume 84.7 fL (80.0-100.0); Potassium 4.9 mmol/L (3.5-5.1)
[2025-03-24 07:39] LABS: Anion Gap 8 (5-15); Calcium 9.7 mg/dL (8.7-10.4); Carbon Dioxide 26 mmol/L (20-31); Sodium 136 mmol/L (136-145)
[2025-03-24 07:44] LABS: Blood Urea Nitrogen 15 mg/dL (9-23)
[2025-03-24 08:26] LABS: BUN/Creatinine Ratio 12.4 (10.0-20.0)
--- NOTE | 2025-03-24 08:26 | DVH ---
Right Lower Extremity Arterial Duplex Clinical History: Right lower extremity arterial study for discoloration foot Comparison: US BILAT LOW EXT ART DUPLEX on DOS: 02/20/25 Technique: Duplex Doppler evaluation including color Doppler and spectral/pulsed waveform analysis of the lower extremity arteries was performed. Findings: RIGHT: Peak systolic velocities are less than 150 cm/sec. The waveforms are monophasic with diastolic flow. IMPRESSION: No hemodynamically significant stenosis based on peak systolic velocity criteria. Monophasic arterial waveforms are present from the popliteal vein to the dorsalis pedis suggestive of underlying peripheral arterial disease. REFERENCE VALUES, [facility] ([facility]) vascular Imaging Lab Criteria: Peak systolic velocity rang es (in cm/sec) are as follows: <150 cm/s - <20 % stenosis 150-200 cm/s - 20-49% stenosis 200-300 cm/s - 50-75% stenosis >300 cm/s -> 75% stenosis
[2025-03-24 08:30] LABS: Glucose 314 mg/dL (74-106)
[2025-03-24 08:53] LABS: RBC Morphology Normal; Total Cells Counted 100.0 (100)
[2025-03-24] MEDS ORDERED: DEXTROSE (50%) 50ML SYRG IV PRN (09:00)
[2025-03-24] MEDS ORDERED: AMLO1TAB22 PO (09:08)
[2025-03-24] MEDS ORDERED: ONDANSETRON HCL 4 MG/2 ML VIAL IV PRN (09:15)
[2025-03-24] MEDS ORDERED: ACETAMINOPHEN 325 MG TAB PO PRN (09:15)
--- NOTE | 2025-03-24 09:18 | DVHHP2 ---
History of Present Illness Reason for Visit: Right foot pain with swelling History of Present Illness Cass Zhong is a 65-year-old female with past medical history of hyperlipidemia, hypertension, appendectomy, hysterectomy, PTCA, and tonsillectomy who presents to the ED with right foot pain that started 3 weeks ago. She reports that the foot pain has been worsening causing her swelling, pain, and redness. Patient also reports that she had a recent MA in January with stent placement and scheduled for a ISABELL in which Dr. Grier advised her to see another odd shoe examiner in [place]. She also endorses not taking her insulin for the past 2 days. Patient reports that she does not has a history of PAD or is aware of Raynaud's phenomenon. Patient reports that her extremities are bluish in color when it gets cold. Patient also reports smoking 5 cigarettes per day. She reports that she lives at home with her boyfriend. Patient reports that over 3 weeks ago her foot had struck her boyfriend's foot, however did not have any laceration or break are opening of her skin. Patient denies any recent sick contacts, recent travels, recent ingestion of spoiled food, chest pain, shortness of breath, fever, chills, lightheadedness, weakness, dizziness, abdominal pain, nausea, vomiting, diarrhea, or urinary symptoms. Cardiovascular: HTN, hyperipidemia Past Surgical History: Appendectomy, Hysterectomy, Other (PTCA), Tonsillectomy Family History: Cancer, Other (Mom with breast cancer. And dad with prostate cancer.) Smoke: <1 pack per day ALCOHOL: none Drugs: None Lives: with Family Domestic Violence: Neg Review of Systems Musculoskeletal: other (Swelling right 5th toe), foot pain Allergies: Coded Allergies: Tetanus Toxoid (Verified Allergy, Unknown, 03/25/15) Uncoded Allergies: LATEX BANDAIDS (Allergy, Unknown, 03/25/15) Exam Vital Signs Vital Signs Date Time Temp Pulse Resp B/P (MAP) Pulse Ox O2 Delivery O2 Flow Rate FiO2 03/24/25 06:46 98.5 82 18 127/73 95 98.5 General Appearance: Alert, Oriented X3, Cooperative, No acute distress HEENT: Atraumatic, PERRLA, EOMI, Mucous membr. moist/pink Respiratory: Clear to auscultation, Normal air movement Cardiovascular: Regular rate, Normal S1, Normal S2 Abdominal: Normal bowel sounds, Soft Extremities: Other (Bilateral upper extremity and lower extremity discoloration) Neuro: Normal speech, Strength at 5/5 X4 ext, Normal tone, Sensation intact Psych/Mental Status: Mental status NL, Mood NL Labs/Xrays Labs Test 03/24/25 07:12 Range/Units White Blood Count 32.4 *H 4.4-10.8 10^3/uL Red Blood Count 5.57 H 4.0-5.20 10^6/uL Hemoglobin 15.6 12.2-16.2 g/dL Hematocrit 47.2 H 36.0-46.0 % Mean Corpuscular Volume 84.7 80.0-100.0 fL Mean Corpuscular Hemoglobin 28.0 28.0-32.0 pg Mean Corpuscular Hemoglobin Concent 33.1 32.0-36.0 g/dL Red Cell Distribution Width 15.8 H 11.8-14.3 % Platelet Count 370 140-450 10^3/uL Mean Platelet Volume 7.1 6.9-10.8 fL Neutrophils (%) (Auto) 37.0-80.0 % Lymphocytes (%) (Auto) 10.0-50.0 % Monocytes (%) (Auto) 0.0-12.0 % Basophils (%) (Auto) 0.0-2.0 % Neutrophils # (Auto) 1.6-8.6 10 ^3/uL Lymphocytes # (Auto) 0.4-5.4 10 ^3/uL Monocytes # (Auto) 0-1.3 10 ^3/uL Differential Total Cells Counted 100.0 100 Neutrophils % (Manual) 10 L 37.0-80.0 Band Neutrophils % (Manual) 0 Lymphocytes % (Manual) 87 H 10.0-50.0 Monocytes % (Manual) 3 0-12 Eosinophils % (Manual) 0 0-7 Basophils % (Manual) 0 0.0-2.0 Metamyelocytes % (manual) 0 Myelocytes % (Manual) 0 Promyelocytes % (Manual) 0 Blast Cells % (Manual) 0 Reactive Lymphocytes 0 Platelet Estimate Adequate Red Blood Cell Morphology Normal Sodium Level 136 136-145 mmol/L Potassium Level 4.9 3.5-5.1 mmol/L Chloride Level 102 98-107 mmol/L Carbon Dioxide Level 26 20-31 mmol/L Anion Gap 8 5-15 Blood Urea Nitrogen 15 9-23 mg/dL Creatinine 1.21 H 0.550-1.02 mg/dL Glomerular Filtration Rate Calc 50 >90 mL/min BUN/Creatinine Ratio 12.4 10.0-20.0 Serum Glucose 314 H 74-106 mg/dL Calcium Level 9.7 8.7-10.4 mg/dL Troponin I High Sensitivity 50 *H </=34 ng/L ORDERING PHYSICIAN: JEZ ODELL MD PROCEDURE(s): RFOT2 - R FOOT 2 VIEW XRAY REASON: osteo ORDER NUMBER(s): [id number], ACCESSION NUMBER(s): [id number] XY R FOOT 2 VIEW XRAY, INDICATION: osteo TECHNICAL DATA: Frontal and lateral views were obtained of the right foot. COMPARISON: XY R FOOT 3 VIEW XRAY on DOS: 02/20/25 FINDINGS: No fracture is identified. There is sclerosis in the 5th proximal phalanx. Joint spaces are maintained. Alignment is anatomic. The hallux sesamoids appear normal. Soft tissue swelling in the lateral forefoot at the level of the 5th toe. IMPRESSION: 1. No acute fracture or dislocation. 2. Sclerosis in the 5th proximal phalanx with adjacent soft tissue swelling. This could be related to chronic osteomyelitis in the appropriate clinical setting. MRI is recommended. Right Lower Extremity Arterial Duplex Clinical History: Right lower extremity arterial study for discoloration foot Comparison: US BILAT LOW EXT ART DUPLEX on DOS: 02/20/25 Technique: Duplex Doppler evaluation including color Doppler and spectral/pulsed waveform analysis of the lower extremity arteries was performed. Findings: RIGHT: Peak systolic velocities are less than 150 cm/sec. The waveforms are monophasic with diastolic flow. IMPRESSION: No hemodynamically significant stenosis based on peak systolic velocity criteria. Monophasic arterial waveforms are present from the popliteal vein to the dorsalis pedis suggestive of underlying peripheral arterial disease. CHEST RADIOGRAPH Indication: sob Technique: Single frontal view of the chest was obtained Comparison: XY CHEST PORTABLE on DOS: 02/22/25 FINDINGS: Lines and Tubes: None Lungs: Bilateral interstitial prominence. No focal consolidation. Pleura: No effusion. No pneumothorax. Cardiomediastinal contours: Cardiomegaly. Bones: No acute osseous abnormality. IMPRESSION: 1. Cardiomegaly with bilateral interstitial prominence which may reflect pulmonary vascular congestion. CLINICAL INDICATION: POSSIBLE OSTEO TECHNIQUE: Noncontrast CT of the right foot was performed. Sagittal and coronal reformatted images are provided. COMPARISON: XY R FOOT 2 VIEW XRAY on DOS: 03/24/25 CT Dose: CTDI volume is 7.75 mGy. Dose-length product is 2.13 mGy*cm FINDINGS: No fracture or dislocation. No cortical erosion. No significant sclerosis in the 5th digit as not previously on x-ray. Soft tissue swelling of the lateral forefoot. IMPRESSION: 1. No acute fracture or dislocation. 2. No CT evidence of osteomyelitis. 3. Soft tissue swelling lateral forefoot. SEPSIS Sepsis Screen Date sepsis recognized/suspect: Mar 24, 2025 Time Sepsis recognized/suspect: 645 Recent Procedure: Yes (CARDIAC STENT) On Antibiotic Therapy: No Respiratory Rate >20: No Heart Rate >90: No Temp<36 C (96.8 F) or >38.3 C: No SBP <90 or MAP <65 mmHG: No New Acute Mental Status Change: No Is the patient on CPAP, BIPAP,: No Physician Orders Chest Portable (03/24/25 06:42) Urinalysis (03/24/25 06:42) Sodium Chloride 0.9% (03/24/25 06:45) R Foot 2 View Xray (03/24/25 06:45) Rt Low Ext Art Duplex (03/24/25 06:42) Blood Culture (03/24/25 08:04) Lactic Acid W/ Reflex Order (03/24/25 08:04) Clindamycin 300mg Iv (Cleocin Iv) (03/24/25 08:15) Sepsis Initial Assessment ONCE (03/24/25 08:24) Sepsis Reassessment After Flui (03/24/25 08:25) Initiate Sepsis Protocol (03/24/25 08:24) Vital Signs Date Time Temp Pulse Resp B/P (MAP) Pulse Ox O2 Delivery O2 Flow Rate FiO2 03/24/25 06:46 98.5 82 18 127/73 95 98.5 Laboratory Tests Test 03/24/25 07:12 White Blood Count 32.4 10^3/uL (4.4-10.8) *H Assessment/Plan Assessment/Plan Assessment Right foot pain with swelling likely osteomyelitis versus other etiology ?Sepsis Leukocytosis likely due to osteomyelitis Sclerosis in the 5th proximal phalanx with adjacent soft tissue swelling, possible chronic osteomyelitis ?PAD Cardiomegaly ANTON likely prerenal Tobacco use Elevated tropes History of diabetes History of hyperlipidemia History of hypertension History of appendectomy History of hysterectomy History of PTCA History of tonsillectomy Medication noncompliance Plan Admit to tele Antibiotics- clindamycin +Zosyn Hemoglobin A1c ISS and Accu-Cheks Antiemetics Pain management Wound culture with Gram stain CT right lower extremity ESR CRP Lactic LDH Blood cultures UA Arterial ultrasound noted Bilateral lower extremity venous ultrasound Diet Home medications reconciled DVT prophylaxis-patient on Brilinta PUD prophylaxis-not indicated no history of GERD or GI bleed Discussed plan of care with patient and nurse Podiatry consult Consider vascular consult Counseled patient on cessation of tobacco use [id number] Behavior change smoking greater than 10 minutes about use of other options also gave option of nicotine patch [id number] Preventive counseling healthy eating habits, physical activity, and regular checkups Plan discussed with: Patient Date of Service: Mar 24, 2025 Billing Provider: LUCY METZGER Common Visit Codes: [id number] INP/OBS CARE (HIGH) Secondary Visit Codes: [id number] COUNSELING IND, [id number] CHNG SMOKING >10MIN LUCY METZGER Mar 24, 2025 09:18
[2025-03-24 09:30] VITALS: PULSE 83; RESP 22; O2SAT 95
[2025-03-24] MEDS: PIPERACILLIN-TAZOB 3.375GM 100 ML IV ONE (09:42)
[2025-03-24] MEDS: SODIUM CHLORIDE 0.9% 1,000 ML IV ONE ×2 (09:48→10:48)
--- NOTE | 2025-03-24 09:48 | DVH ---
CLINICAL INDICATION: POSSIBLE OSTEO TECHNIQUE: Noncontrast CT of the right foot was performed. Sagittal and coronal reformatted images ar e provided. COMPARISON: XY R FOOT 2 VIEW XRAY on DOS: 03/24/25 CT Dose: CTDI volume is 7.75 mGy. Dose-length product is 2.13 mGy*cm FINDINGS: No fracture or dislocation. No cortical erosion. No significant sclerosis in the 5th digit as not previously on x-ray. Soft tissue swelling of the lateral forefoot. IMPRESSION: 1. No acute fracture or dislocation. 2. No CT evidence of osteomyelitis. 3. Soft tissue swelling lateral forefoot. All CT scans at this medical facility are performed using dose modulation techniques as appropriate t o a performed exam including the following: Automated exposure control was utilized; adjustment of th e MA and/or KV according to patient size; and use of iterative reconstruction technique.
[2025-03-24] MEDS: ASPirin-EC 81 mg tab PO SCH (10:00)
[2025-03-24] MEDS ORDERED: ENOXAPARIN SOD 40 MG/0.4 ML SYRINGE SC SCH (10:00)
[2025-03-24] MEDS: SACUBITRIL-VALSARTAN 24mg/26mg TAB PO SCH (10:00)
[2025-03-24] MEDS: METOPROLOL SUCCINATE XL 50 MG TAB PO SCH (10:00)
[2025-03-24] MEDS: InsuLIN REG 1unit/0.01ml Soln (100units/ml) IV ONE (10:00)
[2025-03-24] MEDS: FUROSEMIDE 40 MG/4 ML VIAL IV SCH (10:00)
[2025-03-24] MEDS: TICAGRELOR 90 MG TAB PO SCH (10:00)
[2025-03-24] MEDS ORDERED: PATIENTS OWN MEDICATION (Atorvastatin Calcium 1 TAB) PO SCH (10:00)
[2025-03-24] MEDS: EMPAGLIFLOZIN 10 MG TAB PO SCH (10:00)
[2025-03-24] MEDS ORDERED: PATIENTS OWN MEDICATION (Metoprolol Succinate (Toprol Xl) 1 TAB) PO SCH (10:00)
--- NOTE | 2025-03-24 10:24 | DVH ---
US RT Lower DVT HISTORY: r/o dvt COMPARISON: US RT LOW EXT ART DUPLEX on DOS: 03/24/25, US BILAT LOW EXT ART DUPLEX on DOS: 02/20/25 TECHNIQUE: Duplex doppler evaluation of the deep venous system of the lower extremity from the common femoral veins, superficial femoral vein, great saphenous vein, deep femoral vein, popliteal vein, an d calf veins, including color doppler and spectral/pulsed waveform analysis, was performed. FINDINGS: Right: - Common femoral vein: Compressible - Deep femoral vein: Compressible - Femoral vein: Compressible - Popliteal vein: Compressible - Other: Nothing IMPRESSION: No right lower extremity deep venous thrombosis.
[2025-03-24] MEDS: CLINDAMYCIN 300MG IV 50 ML IV ONE (10:48)
[2025-03-24] MEDS: HYDROcodone-ACET 5/325MG TAB PO PRN (11:17)
[2025-03-24 11:25] LABS: Urine Protein, UAD Negative (Negative)
[2025-03-24] MEDS: ACCU-CHEK COMFORT CURVE STRIP VI SCH (11:30)
[2025-03-24] MEDS: InsuLIN REG 1unit/0.01ml Soln (100units/ml) SC SCH (11:30)
--- NOTE | 2025-03-24 13:35 | DVH ---
EXAM: MRI MRI R FOOT WO CONTRAST INDICATION: r/o OM vs abscess TECHNIQUE: Multiplanar, multisequence imaging of the right foot without contrast COMPARISON: CT CT R FOOT WO CONTRAST on DOS: 03/24/25 FINDINGS: BONES: No MR evidence of an acute fracture, osseous contusion, or aggressive focal osseous lesion. No MR evidence of osteomyelitis MUSCLES: Normal signal intensity and morphology. TENDONS: Intact. LIGAMENTS: Intact. JOINT SPACES: No joint effusion. NEUROVASCULAR: Normal. OTHER: Soft tissue swelling plantar medial aspect of the forefoot deep to the 1st metatarsal head. ad ditional pressure related change deep to the 2nd metatarsal head. IMPRESSION: 1. No MR evidence of osteomyelitis. Small areas of pressure related change and/or infection along the plantar surface of the forefoot and great toe.
[2025-03-24 13:46] VITALS: PULSE 89; RESP 20; O2SAT 97
[2025-03-24] MEDS: CLINDAMYCIN 600MG IV 50 ML IV SCH (16:06)
[2025-03-24] MEDS: PIPERACILLIN-TAZOB 3.375GM 100 ML IV SCH (17:26)
[2025-03-24 19:57] VITALS: BP 148/72; PULSE 80; PULSE 95; RESP 15; RESP 18; TEMP 98.8; O2SAT 94; O2SAT 95
[2025-03-24 20:00] VITALS: PULSE 80; RESP 15; O2SAT 95
[2025-03-24] MEDS: MORPHINE SULFATE INJ 2 MG/ml SYRG IV PRN (20:39)
[2025-03-24 21:00] VITALS: BP 148/72; PULSE 95; RESP 16; TEMP 98.8; O2SAT 94
[2025-03-24] MEDS ORDERED: TICA90TA PO (21:10)
[2025-03-24] MEDS: ATORVASTATIN 20 MG TAB PO SCH (21:21)
[2025-03-25] VITALS (8 sets, daily range): BP systolic 110–131; BP diastolic 54–73; PULSE 66–89; RESP 14–19; TEMP 97.7–98.2; O2SAT 91–96
[2025-03-25] MEDS: CLINDAMYCIN 600MG IV 50 ML IV SCH (00:36)
[2025-03-25] MEDS: PIPERACILLIN-TAZOB 3.375GM 100 ML IV SCH (02:00)
[2025-03-25 07:11] LABS: Hematocrit 45.5 % (36.0-46.0); Hemoglobin 15.1 g/dL (12.2-16.2)
[2025-03-25 07:13] LABS: Mean Corpuscular Hemoglobin 27.9 pg (28.0-32.0); Mean Corpuscular Volume 83.9 fL (80.0-100.0)
[2025-03-25 07:18] LABS: Alanine Aminotransferase 26 U/L (7-40); Anion Gap 10 (5-15); Calcium 9.0 mg/dL (8.7-10.4); Carbon Dioxide 24 mmol/L (20-31); Chloride 104 mmol/L (98-107); Potassium 4.3 mmol/L (3.5-5.1); Sodium 138 mmol/L (136-145)
[2025-03-25 07:19] LABS: BUN/Creatinine Ratio 14.7 (10.0-20.0); Blood Urea Nitrogen 14 mg/dL (9-23); Total Protein 7.3 g/dL (5.7-8.2)
[2025-03-25 07:20] LABS: Albumin 4.4 g/dL (3.2-4.8)
[2025-03-25 07:21] LABS: Bilirubin, Total 0.5 mg/dL (0.2-1.0)
[2025-03-25 07:22] LABS: Alkaline Phosphatase 205 U/L (46-116); Glucose 224 mg/dL (74-106)
[2025-03-25 08:14] LABS: Total Cells Counted 100.0 (100)
[2025-03-25] MEDS ORDERED: VANCOMYCIN PER PHARMACY 0 MG IV SCH (09:45)
[2025-03-25 11:46] LABS: Amphetamine Screen, Urine Neg (NEGATIVE)
[2025-03-25 11:48] LABS: Barbiturate Scree,Urine Neg (NEGATIVE); Benzodiazephine Screen, Urine Neg (NEGATIVE)
[2025-03-25 11:49] LABS: Cannabinoid Screen, Urine Neg (NEGATIVE); Cocaine Screen, Urine Neg (NEGATIVE); Opiate Scree,Urine Neg (NEGATIVE); Phencyclidine Screen, Urine Neg (NEGATIVE)
[2025-03-25] MEDS: VANCOMYCIN 1.5GM/250ML 250 ML IV ONE (13:25)
--- NOTE | 2025-03-25 15:54 | DVH ---
CLINICAL INDICATION: Lt foot pain TECHNIQUE: 2 radiographic views of the left foot were obtained. Comparison: XY R FOOT 2 VIEW XRAY on DOS: 03/24/25, XY R FOOT 3 VIEW XRAY on DOS: 02/20/25, XY R FOOT 3 VIEW XRAY on DOS: 02/17/25 FINDINGS/IMPRESSION: No fractures or dislocations. No radiopaque foreign bodies.
[2025-03-25] MEDS: NICOTINE 14 MG/24HR TOPICAL PATCH TD ONE (16:22)
[2025-03-25] MEDS ORDERED: DEXTROSE (50%) 50ML SYRG IV PRN (16:45)
[2025-03-25] MEDS: InsuLIN REG 1unit/0.01ml Soln (100units/ml) SC SCH (17:00)
[2025-03-25] MEDS: ACCU-CHEK COMFORT CURVE STRIP VI SCH (17:20)
--- NOTE | 2025-03-25 17:29 | DVHPN2 ---
Progress Note Date Seen: Mar 25, 2025 Resident Creating Document: SANDOVAL RIVERS RESIDENT Has the PT tested + for MRSA If YES, has PT been informed?: No Medical Necessity Reason Pt with a Central, PICC or Fol: No Subjective Review of Systems Cass Jiménez is a 65-year-old female, with past medical history of hyperlipidemia, hypertension, PTCA (Seppresents to the ED with right foot pain that started 3 weeks ago. She reports that the foot pain has been worsening causing her swelling, pain, and redness. Patient also reports that she had a recent MO in January with stent placement and scheduled for a ISABELL in which Dr. Grier advised her to see another comb tender in [place]. She also endorses not taking her insulin for the past 2 days. Patient reports that she does not has a history of PAD or is aware of Raynaud's phenomenon. Patient reports that her extremities are bluish in color when it gets cold. Patient also reports smoking 5 cigarettes per day. She reports that she lives at home with her boyfriend. Patient reports that over 3 weeks ago her foot had struck her boyfriend's foot, however did not have any laceration or break are opening of her skin. Patient denies any recent sick contacts, recent travels, recent ingestion of spoiled food, chest pain, shortness of breath, fever, chills, lightheadedness, weakness, dizziness, abdominal pain, nausea, vomiting, diarrhea, or urinary symptoms. Cardiovascular: HTN, hyperipidemia Past Surgical History: Appendectomy, Hysterectomy, Other (PTCA), Tonsillectomy Family History: Cancer, Other (Mom with breast cancer. And dad with prostate cancer.) Smoke: <1 pack per day ALCOHOL: none Drugs: None Lives: with Family Domestic Violence: Neg Objective vital signs Vital Sign Date Time Temp Pulse Resp B/P (MAP) Pulse Ox O2 Delivery O2 Flow Rate FiO2 03/25/25 13:00 97.8 82 18 126/73 (90) 94 97.8 03/25/25 08:00 Room Air* 0 21 Total Intake and Output 03/24/25 03/24/25 03/25/25 15:00 23:00 07:00 Intake Total 400 ml Balance 400 ml medications Current Medications Medications Dose Ordered Sig/Scott Route Start Time Stop Time Status Last Admin Dose Admin Diagnostic Test (Pha) 1 strip ACHS 03/24/25 11:30 03/25/25 11:30 1 STRIP Insulin Human Regular ACHS SC 03/24/25 11:30 03/25/25 13:24 10 UNITS Dextrose 50 ml UD PRN IV 03/24/25 09:00 Acetaminophen/ Hydrocodone Bitart 1 tab Q4HP PRN PO 03/24/25 09:15 03/25/25 09:11 1 TAB Ondansetron HCl 4 mg Q4HP PRN IV 03/24/25 09:15 Acetaminophen 650 mg Q6HP PRN PO 03/24/25 09:15 Morphine Sulfate 2 mg Q4HPRN PRN IV 03/24/25 09:15 03/25/25 04:45 2 MG Aspirin 81 mg DAILY PO 03/24/25 10:00 03/25/25 09:55 81 MG Empaglifozin 10 mg DAILY PO 03/24/25 10:00 03/25/25 09:55 10 MG Sacubitril/ Valsartan 0.5 tab BID PO 03/24/25 10:00 03/25/25 09:54 0.5 TAB Ticagrelor 90 mg BID PO 03/24/25 10:00 03/25/25 09:55 90 MG Patient Own Medication 1 tab DAILY PO 03/24/25 10:00 UNV Patient Own Medication 1 tab DAILY PO 03/24/25 10:00 UNV Furosemide 40 mg DAILY IV 03/24/25 10:00 03/25/25 09:55 40 MG Atorvastatin Calcium 80 mg HS PO 03/24/25 22:00 03/24/25 21:21 80 MG Metoprolol Succinate 25 mg DAILY PO 03/24/25 10:00 03/25/25 09:54 25 MG Piperacillin Sod/ Tazobactam Sod 100 ml @ 25 mls/hr Q8H IV 03/25/25 02:00 03/25/25 09:54 25 MLS/HR Vancomycin HCl 0 ml @ 0 mls/hr PER PHARMACY IV 03/25/25 09:45 Insulin Glargine 15 units HS SC 03/25/25 22:00 Vancomycin HCl 250 ml @ 200 mls/hr Q24H IV 03/26/25 13:00 Nicotine 1 patch DAILY TD 03/26/25 10:00 laboratory and microbiology Laboratory Tests 03/25/25 06:05 Test 03/25/25 06:05 Range/Units Serum Glucose 224 H 74-106 mg/dL Microbiology Date/Time Source Procedure Growth Status 03/24/25 23:13 Nose MRSA Screen - Final Complete 03/24/25 09:30 Blood Blood Culture - Preliminary NO GROWTH AFTER 24 HOURS OF INCUBATION. Resulted My Orders My Orders Orders - SANDOVAL RIVERS Procedure Category Date Status Time Vancomycin Per PHA 03/25/25 In Process Pharmacy 09:45 Complete Blood Count LAB 03/26/25 Verified 04:00 Creatinine LAB 03/26/25 Verified 04:00 Vancomycin,Random LAB 03/26/25 Verified 04:00 Vancomycin PHA 03/26/25 In Process 1.25gm/250ml 13:00 Basic Metabolic Panel LAB 03/26/25 Verified 04:00 SANDOVAL RIVERS RESIDENT Mar 25, 2025 17:28
[2025-03-25] MEDS: INSULIN LANTUS (GLARGINE) 1 /0.01ml (100units/ml) SC SCH (17:32)
--- NOTE | 2025-03-25 19:35 | DVHPNRES ---
Progress Note Date Seen: Mar 25, 2025 Resident Creating Document: SANDOVAL RIVERS RESIDENT Has the PT tested + for MRSA If YES, has PT been informed?: No Medical Necessity Reason Pt with a Central, PICC or Fol: No Subjective Review of Systems Cass Jiménez is a 65-year-old female, with past medical history of hyperlipidemia, hypertension, [place] with PTCA (01/2025) and leukemia (patient does not remember the type). The patient presented to the ED with history of 3 weeks of right 5th toe pain, 7/10, sharp-like, continue, no radiation. The patient reports she hit her right 5th toe against her boyfriend's boot, at that time she presented sudden sharp pain 10/10 and discomfort but denies laceration, bleeding or deformity of the toe; the pain is worsen with movement of the right foot and when she bear weight on it, Improve with rest. The patient reports she started noticing her right 5th toe change in color, from red to purple-keily, with worsen pain and swelling, this prompted her visit to the ED. Also, reports that her extremities are bluish in color when it gets cold. The patient denies other trauma, fever, chills, abdominal pain, chest pain, headache or other symptoms. In the ED, Vs were stable. The patient was admitted for further management. Admission course: 03/25/25, the patient was evaluated at bedside. VS, labs and chart was reviewed. WBC: 31.4x10e3/uL. Hb: 15.1mg/dl a peripheral blood smear was order to rule out acute leukemia. Right Lower Extremity Arterial Duplex: No hemodynamically significant stenosis based on peak systolic velocity criteria. Right Foot xray: 1. No acute fracture or dislocation. Sclerosis in the 5th proximal phalanx with adjacent soft tissue swelling. This could be related to chronic osteomyelitis in the appropriate clinical setting. MRI is recommended.Antonette doppler: No right lower extremity deep venous thrombosis. Ct scan: No acute fracture or dislocation. No CT evidence of osteomyelitis. Soft tissue swelling lateral forefoot. Right foot MRI: No MR evidence of osteomyelitis. Small areas of pressure related change and/or infection along the plantar surface of the forefoot and great toe. The patient reports pain in her right 5th toe has improved today with the pain medications also, she reports left heel pain due to a open wound, an xray of the left foot was ordered. The patient continues with IV antibiotics: Zocyn and vancomicyn. We will continue following the progress of this patient. ROS: Constitutional: Weight loss. No: Fever, Chills, Sweats, Weakness, Malaise, Other Eyes: No: Pain, Vision change, Conjunctivae inflammation, Eyelid inflammation, Other, Redness ENT: No: Ear pain, Ear discharge, Nose pain, Nose discharge, Nose congestion, Mouth pain, Mouth swelling, Throat pain, Throat swelling, Other Respiratory: mild Shortness of breath; No: Cough, Dry, SOB with excertion, Wheezing, Hemoptysis, Pleuritic Pain, Sputum, Wheezing, Other Cardiovascular: Chest Pain; No: Palpitations, Orthopnea, Paroxysmal Noc. Dyspnea, Edema, Lt Headedness, Other Gastrointestinal: No: Nausea, Vomiting, Abdominal Pain, Diarrhea, Constipation, Melena, Hematochezia, Other Genitourinary: No Dysuria, No Frequency, No Incontinence, No Hematuria, No Retention, No Other Musculoskeletal: right 5th toe pain. Skin: Purple discoloration on right 5th toe. No: Rash, Lesions, Jaundice, Bruising, Other Neurological: No: Weakness, Numbness, Incoordination, Change in speech, Confusion, Seizures, Other Allergies: NO KNOWN ALLERGIES Objective vital signs Vital Sign Date Time Temp Pulse Resp B/P (MAP) Pulse Ox O2 Delivery O2 Flow Rate FiO2 03/25/25 17:00 97.9 77 17 115/56 (75) 94 97.9 03/25/25 08:00 Room Air* 0 21 Total Intake and Output 03/24/25 03/24/25 03/25/25 15:00 23:00 07:00 Intake Total 400 ml Balance 400 ml medications Current Medications Medications Dose Ordered Sig/Scott Route Start Time Stop Time Status Last Admin Dose Admin Acetaminophen/ Hydrocodone Bitart 1 tab Q4HP PRN PO 03/24/25 09:15 03/25/25 09:11 1 TAB Ondansetron HCl 4 mg Q4HP PRN IV 03/24/25 09:15 Acetaminophen 650 mg Q6HP PRN PO 03/24/25 09:15 Morphine Sulfate 2 mg Q4HPRN PRN IV 03/24/25 09:15 03/25/25 04:45 2 MG Aspirin 81 mg DAILY PO 03/24/25 10:00 03/25/25 09:55 81 MG Empaglifozin 10 mg DAILY PO 03/24/25 10:00 03/25/25 09:55 10 MG Sacubitril/ Valsartan 0.5 tab BID PO 03/24/25 10:00 03/25/25 09:54 0.5 TAB Ticagrelor 90 mg BID PO 03/24/25 10:00 03/25/25 09:55 90 MG Patient Own Medication 1 tab DAILY PO 03/24/25 10:00 UNV Patient Own Medication 1 tab DAILY PO 03/24/25 10:00 UNV Furosemide 40 mg DAILY IV 03/24/25 10:00 03/25/25 09:55 40 MG Atorvastatin Calcium 80 mg HS PO 03/24/25 22:00 03/24/25 21:21 80 MG Metoprolol Succinate 25 mg DAILY PO 03/24/25 10:00 03/25/25 09:54 25 MG Piperacillin Sod/ Tazobactam Sod 100 ml @ 25 mls/hr Q8H IV 03/25/25 02:00 03/25/25 17:33 25 MLS/HR Vancomycin HCl 0 ml @ 0 mls/hr PER PHARMACY IV 03/25/25 09:45 Vancomycin HCl 250 ml @ 200 mls/hr Q24H IV 03/26/25 13:00 Nicotine 1 patch DAILY TD 03/26/25 10:00 Insulin Glargine 20 units HS SC 03/25/25 16:45 03/25/25 17:32 20 UNITS Diagnostic Test (Pha) 1 strip ACHS 03/25/25 17:00 03/25/25 17:20 1 STRIP Insulin Human Regular AC SC 03/25/25 17:00 Dextrose 50 ml UD PRN IV 03/25/25 16:45 Examination General Appearance: Pale, Alert, Oriented X3, Cooperative, No acute distress HEENT: Atraumatic, PERRLA, EOMI, Mucous membranes moist/pink Respiratory: Clear to auscultation, Normal air movement Cardiovascular: Regular rate, Normal S1, Normal S2 Abdominal: Normal bowel sounds, Soft Extremities: Right foot: 5th toe purple discoloratio, tender to touch. normal ROM. Left foot: heel open wound, no discharge, tender to touch. Neuro: Normal speech, Strength at 5/5 X4 ext, Normal tone, Sensation intact Psych/Mental Status: Mental status NL, Mood NL laboratory and microbiology Laboratory Tests 03/25/25 06:05 Test 03/25/25 06:05 Range/Units Serum Glucose 224 H 74-106 mg/dL Microbiology Date/Time Source Procedure Growth Status 03/24/25 23:13 Nose MRSA Screen - Final Complete 03/24/25 09:30 Blood Blood Culture - Preliminary NO GROWTH AFTER 24 HOURS OF INCUBATION. Resulted Problem List/Assessment/Plan Problem List/Assessment/Plan #Sepsis likely due to left foot cellulitis vs osteomyelitis #Right foot pain with edema likely osteomyelitis versus other etiology #Rule out peripheral artery disease Antibiotics- Zosyn IV and Vancomycin IV Pain management Wound culture with Gram stain Blood culture Podiatry consult #Chronic Leukemia r/o acute on chronic leukemia Leukocitosys: WBC31.4 Blood smear Bone marrow aspiration #Left foot pain with edema likely osteomyelitis versus other etiology Left foot Xray. #CDA with stent placement (01/2025) Med reconciliation #Diabetes mellitus type 2 with hyperglycemia. Insulin sliding scale #Tobacco usage. Counseling about quitting smoking. Diet: Low carbohydrate and cardiac diet DVT prophylaxis lovenox 40mg sc daily Goals of care discussed with the patient > 35 min. Discussed plan of care with Code status: Full code PCP: Doroteo. Plan discussed with: Patient, the patient agrees with the plan. Plan discussed with: Patient My Orders My Orders Orders - SANDOVAL RIVERS Procedure Category Date Status Time Vancomycin Per PHA 03/25/25 In Process Pharmacy 09:45 Complete Blood Count LAB 03/26/25 Verified 04:00 Creatinine LAB 03/26/25 Verified 04:00 Vancomycin,Random LAB 03/26/25 Verified 04:00 Vancomycin PHA 03/26/25 In Process 1.25gm/250ml 13:00 Basic Metabolic Panel LAB 03/26/25 Verified 04:00 Cleanse Wound With ANAYA 03/25/25 In Process Wound Clean 12:35 * Dietary Consult CONS 03/25/25 Transmitted 17:32 Date of Service: Mar 25, 2025 Billing Provider: NIYA PANDEY MD Common Visit Codes: [id number] INP/OBS CARE(HIGH) SANDOVAL RIVERS RESIDENT Mar 25, 2025 19:35 NIYA PANDEY MD Mar 25, 2025 22:34
[2025-03-25] MEDS ORDERED: INSULIN LANTUS (GLARGINE) 1 /0.01ml (100units/ml) SC SCH (22:00)
[2025-03-26] VITALS (7 sets, daily range): BP systolic 92–122; BP diastolic 58–75; PULSE 74–89; RESP 17–19; TEMP 97.7–98.3; O2SAT 90–98
[2025-03-26 05:45] LABS: Hematocrit 45.6 % (36.0-46.0); Hemoglobin 15.0 g/dL (12.2-16.2); Mean Corpuscular Hemoglobin 27.5 pg (28.0-32.0); Mean Corpuscular Volume 83.6 fL (80.0-100.0)
[2025-03-26 06:00] LABS: Anion Gap 10 (5-15); Carbon Dioxide 25 mmol/L (20-31); Chloride 103 mmol/L (98-107); Potassium 4.0 mmol/L (3.5-5.1); Sodium 138 mmol/L (136-145)
[2025-03-26 06:01] LABS: Calcium 9.2 mg/dL (8.7-10.4)
[2025-03-26 06:06] LABS: BUN/Creatinine Ratio 19.6 (10.0-20.0); Blood Urea Nitrogen 21 mg/dL (9-23)
[2025-03-26 06:08] LABS: Glucose 225 mg/dL (74-106)
[2025-03-26 06:35] LABS: Total Cells Counted 100.0 (100)
[2025-03-26] MEDS: INSULIN LANTUS (GLARGINE) 1 /0.01ml (100units/ml) SC SCH (08:30)
[2025-03-26] MEDS: NICOTINE 14 MG/24HR TOPICAL PATCH TD SCH (10:03)
[2025-03-26] MEDS: ENOXAPARIN SOD 40 MG/0.4 ML SYRINGE SC SCH (10:04)
[2025-03-26] MEDS: INSULIN LISPRO (HUMAN) 100 UNITS/ML ML SC SCH (11:30)
[2025-03-26] MEDS: InsuLIN REG 1unit/0.01ml Soln (100units/ml) SC SCH (11:30)
[2025-03-26] MEDS: VANCOMYCIN 1.25GM/250ML 250 ML IV SCH (13:14)
--- NOTE | 2025-03-26 16:46 | DVHPNRES ---
Progress Note Date Seen: Mar 26, 2025 Resident Creating Document: KINDRA MEHTA RESIDENT Has the PT tested + for MRSA If YES, has PT been informed?: No Medical Necessity Reason Pt with a Central, PICC or Fol: No Subjective Review of Systems Mrs. Cass Zhong is a 65-year-old female, with past medical history of hyperlipidemia, hypertension, [place] with PTCA (01/2025) and leukemia (patient does not remember the type). The patient presented to the ED with history of 3 weeks of right 5th toe pain, 7/10, sharp-like, continue, no radiation. The patient reports she hit her right 5th toe against her boyfriend's boot, at that time she presented sudden sharp pain 10/10 and discomfort but denies laceration, bleeding or deformity of the toe; the pain is worsen with movement of the right foot and when she bear weight on it, Improve with rest. The patient reports she started noticing her right 5th toe change in color, from red to purple-keily, with worsen pain and swelling, this prompted her visit to the ED. Also, reports that her extremities are bluish in color when it gets cold. The patient denies other trauma, fever, chills, abdominal pain, chest pain, headache or other symptoms. In the ED, Vs were stable. The patient was admitted for further management. Admission course: 03/25/25, the patient was evaluated at bedside. VS, labs and chart was reviewed. WBC: 31.4x10e3/uL. Hb: 15.1mg/dl a peripheral blood smear was order to rule out acute leukemia. Right Lower Extremity Arterial Duplex: No hemodynamically significant stenosis based on peak systolic velocity criteria. Right Foot xray: 1. No acute fracture or dislocation. Sclerosis in the 5th proximal phalanx with adjacent soft tissue swelling. This could be related to chronic osteomyelitis in the appropriate clinical setting. MRI is recommended.Antonette doppler: No right lower extremity deep venous thrombosis. Ct scan: No acute fracture or dislocation. No CT evidence of osteomyelitis. Soft tissue swelling lateral forefoot. Right foot MRI: No MR evidence of osteomyelitis. Small areas of pressure related change and/or infection along the plantar surface of the forefoot and great toe. The patient reports pain in her right 5th toe has improved today with the pain medications also, she reports left heel pain due to a open wound, an xray of the left foot was ordered. The patient continues with IV antibiotics: Zocyn and vancomicyn. We will continue following the progress of this patient. ROS: Constitutional: Weight loss. No: Fever, Chills, Sweats, Weakness, Malaise Eyes: No: Pain, Vision change, Conjunctivae inflammation, Eyelid inflammation, Other, Redness ENT: No: Ear pain, Ear discharge, Nose pain, Nose discharge, Nose congestion, Mouth pain, Mouth swelling, Throat pain, Throat swelling Respiratory: mild Shortness of breath; No: Cough, Dry, SOB with excertion, Wheezing, Hemoptysis, Pleuritic Pain, Sputum, Wheezing Cardiovascular: Chest Pain; No: Palpitations, Orthopnea, Paroxysmal Noc. Dyspnea, Edema, Lt Headedness Gastrointestinal: No: Nausea, Vomiting, Abdominal Pain, Diarrhea, Constipation, Melena, Hematochezia Genitourinary: No Dysuria, No Frequency, No Incontinence, No Hematuria, No Retention Musculoskeletal: right 5th toe pain. Skin: Purple discoloration on right 5th toe. No: Rash, Lesions, Jaundice, Bruising Neurological: No: Weakness, Numbness, Incoordination, Change in speech, Confusion, Seizures Allergies: NO KNOWN ALLERGIES 03/26/25- patient was seen at bedside today. Patient mentions she still has the pain in both her feet. Smear was evaluated, no blasts were seen. White count today was 27.7. We increased the dose of Lantus from 20 to 25. Pending podiatry consult and bone marrow biopsy by IR. Objective vital signs Vital Sign Date Time Temp Pulse Resp B/P (MAP) Pulse Ox O2 Delivery O2 Flow Rate FiO2 03/26/25 13:00 98.0 86 17 108/69 (82) 93 98.0 03/26/25 08:00 Room Air* 0 21 Total Intake and Output 03/25/25 03/25/25 03/26/25 15:00 23:00 07:00 Intake Total 100 ml 949 ml 500 ml Balance 100 ml 949 ml 500 ml medications Current Medications Medications Dose Ordered Sig/Scott Route Start Time Stop Time Status Last Admin Dose Admin Acetaminophen/ Hydrocodone Bitart 1 tab Q4HP PRN PO 03/24/25 09:15 03/26/25 15:20 1 TAB Ondansetron HCl 4 mg Q4HP PRN IV 03/24/25 09:15 Acetaminophen 650 mg Q6HP PRN PO 03/24/25 09:15 Morphine Sulfate 2 mg Q4HPRN PRN IV 03/24/25 09:15 03/26/25 06:08 2 MG Aspirin 81 mg DAILY PO 03/24/25 10:00 03/26/25 10:04 81 MG Empaglifozin 10 mg DAILY PO 03/24/25 10:00 03/26/25 10:05 10 MG Sacubitril/ Valsartan 0.5 tab BID PO 03/24/25 10:00 03/26/25 10:04 0.5 TAB Ticagrelor 90 mg BID PO 03/24/25 10:00 03/26/25 10:04 90 MG Patient Own Medication 1 tab DAILY PO 03/24/25 10:00 UNV Patient Own Medication 1 tab DAILY PO 03/24/25 10:00 UNV Furosemide 40 mg DAILY IV 03/24/25 10:00 03/26/25 10:08 40 MG Atorvastatin Calcium 80 mg HS PO 03/24/25 22:00 03/25/25 21:31 80 MG Metoprolol Succinate 25 mg DAILY PO 03/24/25 10:00 03/26/25 10:07 25 MG Piperacillin Sod/ Tazobactam Sod 100 ml @ 25 mls/hr Q8H IV 03/25/25 02:00 03/26/25 10:08 25 MLS/HR Vancomycin HCl 0 ml @ 0 mls/hr PER PHARMACY IV 03/25/25 09:45 Vancomycin HCl 250 ml @ 200 mls/hr Q24H IV 03/26/25 13:00 03/26/25 13:14 200 MLS/HR Nicotine 1 patch DAILY TD 03/26/25 10:00 03/26/25 10:03 1 PATCH Diagnostic Test (Pha) 1 strip ACHS 03/25/25 17:00 03/26/25 16:37 1 STRIP Dextrose 50 ml UD PRN IV 03/25/25 16:45 Enoxaparin Sodium 40 mg DAILY SC 03/26/25 10:00 03/26/25 10:04 40 MG Insulin Glargine 25 units HS SC 03/26/25 08:30 03/26/25 08:30 25 UNITS Insulin Human Lispro 3 units AC SC 03/26/25 11:30 03/26/25 11:30 3 UNITS Insulin Human Regular ACHS OR 03/26/25 11:30 03/26/25 11:30 6 UNITS Examination General Appearance: Pale, Alert, Oriented X3, Cooperative, No acute distress HEENT: Atraumatic, PERRLA, EOMI, Mucous membranes moist/pink Respiratory: Clear to auscultation, Normal air movement Cardiovascular: Regular rate, Normal S1, Normal S2 Abdominal: Normal bowel sounds, Soft Extremities: Right foot: 5th toe purple discoloration, tender to touch. normal ROM. Left foot: heel open wound, no discharge, tender to touch. Neuro: Normal speech, Strength at 5/5 X4 ext, Normal tone, Sensation intact Psych/Mental Status: Mental status NL, Mood NL laboratory and microbiology Laboratory Tests 03/26/25 04:48 Test 03/26/25 04:48 Range/Units Serum Glucose 225 H 74-106 mg/dL Microbiology Date/Time Source Procedure Growth Status 03/24/25 23:13 Nose MRSA Screen - Final Complete 03/24/25 09:50 Voided Urine Urine Culture - Preliminary Resulted 03/24/25 09:30 Blood Blood Culture - Preliminary NO GROWTH AFTER 48 HOURS OF INCUBATION. Resulted Labs and/or images reviewed: Labs reviewed by me, Image(s) reviewed by me Problem List/Assessment/Plan Plan discussed with: Patient My Orders My Orders #Sepsis likely due to left foot cellulitis vs osteomyelitis #Right foot pain with edema likely osteomyelitis versus other etiology #Rule out peripheral artery disease Antibiotics- Zosyn IV and Vancomycin IV Pain management Wound culture with Gram stain Blood culture-no growth after 48 hrs Podiatry consult pending #Chronic Leukemia r/o acute on chronic leukemia Leukocitosys: WBC31.4 Blood smear-no blasts seen Bone marrow aspiration-IR consult placed #Left foot pain with edema likely osteomyelitis versus other etiology Left foot Xray. #CDA with stent placement (01/2025) Med reconciliation #Diabetes mellitus type 2 with hyperglycemia. Insulin sliding scale #Tobacco usage. Counseling about quitting smoking. Diet: Low carbohydrate and cardiac diet DVT prophylaxis lovenox 40mg sc daily Goals of care discussed with the patient > 35 min. Discussed plan of care with Code status: Full code PCP: Doroteo. Plan discussed with: Patient, the patient agrees with the plan. Dietary Evaluation Review Recommendations by RD: Dietary education by RD Comments: 1) Initiate MVI @ 1 tb qd 2) Initiate vitamin C @ 500 mg bid and zinc sulfate @ 220 mg qd for 7 days 3) Consider lowering CCHO from 60g to 45g 4) Refer to outpatient RD/[facility] for diabetes education 5) Follow-up with cardiology and podiatry 6) Continue to monitor I&O, labs, and skin integrity Expected Outcomes/Goals: 1) appetite and labs to improve 2) wounds to improve 3) f/u in 3-5 days Date of Service: Mar 26, 2025 Billing Provider: NIYA PANDEY MD Common Visit Codes: [id number] INP/OBS CARE(HIGH) Date of Service: Mar 26, 2025 Billing Provider: NIYA PANDEY MD Common Visit Codes: [id number] INP/OBS CARE(HIGH) KINDRA MEHTA RESIDENT Mar 26, 2025 16:46 NIYA PANDEY MD Mar 26, 2025 18:05
[2025-03-27 01:00] VITALS: BP 117/67; PULSE 75; RESP 19; TEMP 97.2; O2SAT 90
[2025-03-27 05:00] VITALS: BP 119/58; PULSE 74; RESP 17; TEMP 97.1; O2SAT 100
[2025-03-27 06:44] LABS: Hematocrit 46.3 % (36.0-46.0); Hemoglobin 15.2 g/dL (12.2-16.2); Mean Corpuscular Hemoglobin 27.7 pg (28.0-32.0); Mean Corpuscular Volume 84.6 fL (80.0-100.0)
[2025-03-27 06:54] LABS: Anion Gap 11 (5-15); Carbon Dioxide 26 mmol/L (20-31); Chloride 104 mmol/L (98-107); Potassium 3.8 mmol/L (3.5-5.1); Sodium 141 mmol/L (136-145)
[2025-03-27 06:55] LABS: Calcium 8.9 mg/dL (8.7-10.4)
[2025-03-27 07:01] LABS: BUN/Creatinine Ratio 17.3 (10.0-20.0); Blood Urea Nitrogen 19 mg/dL (9-23); Glucose 128 mg/dL (74-106)
[2025-03-27 08:12] LABS: Total Cells Counted 100.0 (100)
[2025-03-27 09:00] VITALS: BP 113/61; PULSE 71; RESP 16; TEMP 98.1; O2SAT 96
[2025-03-27 13:00] VITALS: BP 105/53; PULSE 77; RESP 16; TEMP 98; O2SAT 98
--- NOTE | 2025-03-27 16:25 | DVHPNRES ---
Progress Note Date Seen: Mar 27, 2025 Resident Creating Document: SANDOVAL RIVERS RESIDENT Has the PT tested + for MRSA If YES, has PT been informed?: No Medical Necessity Reason Pt with a Central, PICC or Fol: No Subjective Review of Systems Mrs. Cass Zhong is a 65-year-old female, with past medical history of hyperlipidemia, hypertension, [place] with PTCA (01/2025) and leukemia (patient does not remember the type). The patient presented to the ED with history of 3 weeks of right 5th toe pain, 7/10, sharp-like, continue, no radiation. The patient reports she hit her right 5th toe against her boyfriend's boot, at that time she presented sudden sharp pain 10/10 and discomfort but denies laceration, bleeding or deformity of the toe; the pain is worsen with movement of the right foot and when she bear weight on it, Improve with rest. The patient reports she started noticing her right 5th toe change in color, from red to purple-keily, with worsen pain and swelling, this prompted her visit to the ED. Also, reports that her extremities are bluish in color when it gets cold. The patient denies other trauma, fever, chills, abdominal pain, chest pain, headache or other symptoms. In the ED, Vs were stable. The patient was admitted for further management. Admission course: 03/25/25, the patient was evaluated at bedside. VS, labs and chart was reviewed. WBC: 31.4x10e3/uL. Hb: 15.1mg/dl a peripheral blood smear was order to rule out acute leukemia. Right Lower Extremity Arterial Duplex: No hemodynamically significant stenosis based on peak systolic velocity criteria. Right Foot xray: 1. No acute fracture or dislocation. Sclerosis in the 5th proximal phalanx with adjacent soft tissue swelling. This could be related to chronic osteomyelitis in the appropriate clinical setting. MRI is recommended.Antonette doppler: No right lower extremity deep venous thrombosis. Ct scan: No acute fracture or dislocation. No CT evidence of osteomyelitis. Soft tissue swelling lateral forefoot. Right foot MRI: No MR evidence of osteomyelitis. Small areas of pressure related change and/or infection along the plantar surface of the forefoot and great toe. The patient reports pain in her right 5th toe has improved today with the pain medications also, she reports left heel pain due to a open wound, an xray of the left foot was ordered. The patient continues with IV antibiotics: Zocyn and vancomicyn. We will continue following the progress of this patient. On 03/26/25- patient was seen at bedside today. Patient mentions she still has the pain in both her feet. Smear was evaluated, no blasts were seen. White count today was 27.7. We increased the dose of Lantus from 20 to 25. Pending podiatry consult and bone marrow biopsy by IR. On 03/27/25, the patient was re-evaluated and examined at the bedside. VS, labs and chart was reviewed. WBC are trending down 24.9. The patient report improvement on right and left foot. Peripheral blood smear did no showed blast. Podiatric consult is pending. The patient reports the pain has improvement with medication to 06/11. Bone marrow biopsy by IR is still pending. We will continue following up with this patient progress. ROS: Constitutional: Weight loss. No: Fever, Chills, Sweats, Weakness, Malaise Eyes: No: Pain, Vision change, Conjunctivae inflammation, Eyelid inflammation, Other, Redness ENT: No: Ear pain, Ear discharge, Nose pain, Nose discharge, Nose congestion, Mouth pain, Mouth swelling, Throat pain, Throat swelling Respiratory: mild Shortness of breath; No: Cough, Dry, SOB with excertion, Wheezing, Hemoptysis, Pleuritic Pain, Sputum, Wheezing Cardiovascular: Chest Pain; No: Palpitations, Orthopnea, Paroxysmal Noc. Dyspnea, Edema, Lt Headedness Gastrointestinal: No: Nausea, Vomiting, Abdominal Pain, Diarrhea, Constipation, Melena, Hematochezia Genitourinary: No Dysuria, No Frequency, No Incontinence, No Hematuria, No Retention Musculoskeletal: right 5th toe pain. Skin: Pain is improving on 5th right toe. No: Rash, Lesions, Jaundice, Bruising Neurological: No: Weakness, Numbness, Incoordination, Change in speech, Confusion, Seizures Allergies: NO KNOWN ALLERGIES Objective vital signs Vital Sign Date Time Temp Pulse Resp B/P (MAP) Pulse Ox O2 Delivery O2 Flow Rate FiO2 03/27/25 13:00 98.0 77 16 105/53 (70) 98 98.0 03/27/25 08:00 Room Air* 0 21 Total Intake and Output 03/26/25 03/26/25 03/27/25 15:00 23:00 07:00 Intake Total 937 ml 440 ml Balance 937 ml 440 ml medications Current Medications Medications Dose Ordered Sig/Scott Route Start Time Stop Time Status Last Admin Dose Admin Acetaminophen/ Hydrocodone Bitart 1 tab Q4HP PRN PO 03/24/25 09:15 03/27/25 12:28 1 TAB Ondansetron HCl 4 mg Q4HP PRN IV 03/24/25 09:15 Acetaminophen 650 mg Q6HP PRN PO 03/24/25 09:15 Morphine Sulfate 2 mg Q4HPRN PRN IV 03/24/25 09:15 03/26/25 06:08 2 MG Aspirin 81 mg DAILY PO 03/24/25 10:00 03/27/25 12:29 81 MG Empaglifozin 10 mg DAILY PO 03/24/25 10:00 03/27/25 12:29 10 MG Sacubitril/ Valsartan 0.5 tab BID PO 03/24/25 10:00 03/27/25 12:27 0.5 TAB Ticagrelor 90 mg BID PO 03/24/25 10:00 03/27/25 12:29 90 MG Patient Own Medication 1 tab DAILY PO 03/24/25 10:00 UNV Patient Own Medication 1 tab DAILY PO 03/24/25 10:00 UNV Furosemide 40 mg DAILY IV 03/24/25 10:00 03/27/25 12:24 40 MG Atorvastatin Calcium 80 mg HS PO 03/24/25 22:00 03/26/25 22:04 80 MG Metoprolol Succinate 25 mg DAILY PO 03/24/25 10:00 03/27/25 12:29 25 MG Piperacillin Sod/ Tazobactam Sod 100 ml @ 25 mls/hr Q8H IV 03/25/25 02:00 03/27/25 10:00 25 MLS/HR Vancomycin HCl 0 ml @ 0 mls/hr PER PHARMACY IV 03/25/25 09:45 Vancomycin HCl 250 ml @ 200 mls/hr Q24H IV 03/26/25 13:00 03/26/25 13:14 200 MLS/HR Nicotine 1 patch DAILY TD 03/26/25 10:00 03/27/25 12:35 1 PATCH Diagnostic Test (Pha) 1 strip ACHS 03/25/25 17:00 03/27/25 11:58 1 STRIP Dextrose 50 ml UD PRN IV 03/25/25 16:45 Enoxaparin Sodium 40 mg DAILY SC 03/26/25 10:00 03/27/25 12:32 40 MG Insulin Glargine 25 units HS SC 03/26/25 08:30 03/26/25 22:03 25 UNITS Insulin Human Lispro 3 units AC SC 03/26/25 11:30 03/27/25 06:09 3 UNITS Insulin Human Regular ACHS SC 03/26/25 11:30 03/27/25 11:30 4 UNITS Examination General Appearance: Pale, Alert, Oriented X3, Cooperative, No acute distress. On O2 by NC 2L HEENT: Atraumatic, PERRLA, EOMI, Mucous membranes moist/pink Respiratory: Clear to auscultation, Normal air movement Cardiovascular: Regular rate, Normal S1, Normal S2 Abdominal: Normal bowel sounds, Soft, no tenderness Extremities: Right foot: 5th toe purple discoloration, tender to touch. normal ROM. Left foot: heel open wound, no discharge, cover with clean dressing, tender to light touch. Neuro: Normal speech, Strength at 5/5 X4 ext, Normal tone, Sensation intact Psych/Mental Status: Mental status NL, Mood NL laboratory and microbiology Laboratory Tests 03/27/25 05:45 Test 03/27/25 05:45 Range/Units Serum Glucose 128 H 74-106 mg/dL Microbiology Date/Time Source Procedure Growth Status 03/24/25 23:13 Nose MRSA Screen - Final Complete 03/24/25 09:50 Voided Urine Urine Culture - Final Complete 03/24/25 09:30 Blood Blood Culture - Preliminary NO GROWTH AFTER 72 HOURS OF INCUBATION. Resulted Problem List/Assessment/Plan Problem List/Assessment/Plan #Sepsis likely due to left foot cellulitis vs osteomyelitis #Right foot pain with edema likely osteomyelitis versus other etiology #Rule out peripheral artery disease Antibiotics- Zosyn IV and Vancomycin IV Pain management Wound culture with Gram stain Blood culture Podiatry consult #Chronic Leukemia r/o acute on chronic leukemia Leukocitosys: WBC:24.9 Blood smear: no blasts Bone marrow aspiration pending, IR consult pending. #Left foot pain with edema likely osteomyelitis versus other etiology Left foot Xray. Osteomyelitis ruled out #CDA with stent placement (01/2025) Atorvastain 40mg po daily Aspirin 81mg po daily Tricaglerol 90mg po daily #Diabetes mellitus type 2 with hyperglycemia. Insulin sliding scale HbA1C: 10.4 #Tobacco usage (<1 pack per day) Nicotine patch Counseling about quitting smoking. Diet: Low carbohydrate and cardiac diet DVT prophylaxis lovenox 40sc Goals of care discussed with the patient > 35 min. Discussed plan of care with Code status: Full code PCP: Doroteo. Plan discussed with: Patient, the patient agrees with the plan. Plan discussed with: Patient My Orders My Orders Orders - SANDOVAL RIVERS RESIDENT Procedure Category Date Status Time Creatinine LAB 03/28/25 Verified 12:00 *Podiatry Consult CONS 03/27/25 Transmitted Jayson([facility]) 10:37 Dietary Evaluation Review Recommendations by RD: Dietary education by RD Comments: 1) Initiate MVI @ 1 tb qd 2) Initiate vitamin C @ 500 mg bid and zinc sulfate @ 220 mg qd for 7 days 3) Consider lowering CCHO from 60g to 45g 4) Refer to outpatient RD/[facility] for diabetes education 5) Follow-up with cardiology and podiatry 6) Continue to monitor I&O, labs, and skin integrity Expected Outcomes/Goals: 1) appetite and labs to improve 2) wounds to improve 3) f/u in 3-5 days Date of Service: Mar 27, 2025 Billing Provider: NIYA PANDEY MD Common Visit Codes: [id number] INP/OBS CARE(HIGH) SANDOVAL RIVERS RESIDENT Mar 27, 2025 16:25 NIYA PANDEY MD Mar 27, 2025 22:43
[2025-03-27 17:00] VITALS: BP 113/70; PULSE 82; RESP 17; TEMP 97.9; O2SAT 92
[2025-03-27 21:00] VITALS: BP 118/54; PULSE 77; RESP 16; TEMP 98.2; O2SAT 98
[2025-03-28] VITALS (7 sets, daily range): BP systolic 97–134; BP diastolic 57–90; PULSE 70–97; RESP 17–18; TEMP 96.9–98.3; O2SAT 90–100
[2025-03-28 06:35] LABS: Hematocrit 44.0 % (36.0-46.0); Hemoglobin 14.3 g/dL (12.2-16.2); Mean Corpuscular Hemoglobin 27.6 pg (28.0-32.0); Mean Corpuscular Volume 85.2 fL (80.0-100.0)
[2025-03-28 06:52] LABS: Chloride 105 mmol/L (98-107); Potassium 4.2 mmol/L (3.5-5.1); Sodium 139 mmol/L (136-145)
[2025-03-28 06:53] LABS: Anion Gap 9 (5-15); Calcium 8.9 mg/dL (8.7-10.4); Carbon Dioxide 25 mmol/L (20-31)
[2025-03-28 06:58] LABS: BUN/Creatinine Ratio 13.0 (10.0-20.0); Blood Urea Nitrogen 13 mg/dL (9-23); Glucose 91 mg/dL (74-106)
[2025-03-28 08:01] LABS: INR 1.0 (0.9-1.15); Partial Thromboplastin Time 25.6 SEC (24.5-34.5); Prothrombin Time 10.6 sec (9.3-11.8)
[2025-03-28 08:28] LABS: Total Cells Counted 100.0 (100)
[2025-03-28] MEDS: LIDOCAINE 2%HCL (LOCAL ANESTH.) INJ 10ml MDV ONE (10:12)
[2025-03-28] MEDS: fentaNYL CITRATE 100 MCG/2 ML VL IV ONE (10:15)
[2025-03-28] MEDS: MIDAZOLAM HCL 2MG/2ML 2ml VIAL (1mg/ml) IV ONE (10:15)
--- NOTE | 2025-03-28 11:44 | DVH ---
CT PELVIS WO CONTRAST, HISTORY: Leukemia. COMPARISON: None PROCEDURE: Informed consent and time-out was performed before the procedure. The right posterior pel christie bone was marked, sterilized, draped, and locally anesthetized using approximately 8 ml of 1% lido alva. Axial CT images were used for localization. A 11 gauge Fl[employer] Power Bone Biopsy kit was used to t kendall 14 mL aspirate and 1 core. The biopsy needle was then removed. No immediate complications noted. FINDINGS: Axial CT images demonstrates biopsy needle within the right posterior pelvic bone. IMPRESSION: Successful CT-guided bone marrow aspiration and biopsy of the right posterior pelvic bone.
--- NOTE | 2025-03-28 11:44 | DVH ---
PROCEDURE: CT GUIDED BIOPSY OF HISTORY: Leukemia. COMPARISON: None PROCEDURE: Informed consent and time-out was performed before the procedure. The right posterior pelv ic bone was marked, sterilized, draped, and locally anesthetized using approximately 8 ml of 1% lidoc reggie. Axial CT images were used for localization. A 11 gauge [employer] Bone Biopsy kit was used to ta ke 14 mL aspirate and 1 core. The biopsy needle was then removed. No immediate complications noted. FINDINGS: Axial CT images demonstrates biopsy needle within the right posterior pelvic bone. IMPRESSION: Successful CT-guided bone marrow aspiration and biopsy of the right posterior pelvic bone.
--- NOTE | 2025-03-28 11:51 | DVHCONRES ---
Date Seen: Mar 28, 2025 Reason for Consultation Right toe discoloration History of Present Illness Cass Zhong is a 65-year-old female with past medical history of hyperlipidemia, hypertension, appendectomy, hysterectomy, PTCA, and tonsillectomy who presents to the ED with right foot pain that started 3 weeks ago. She reports that the foot pain has been worsening causing her swelling, pain, and redness. Patient also reports that she had a recent OR in January with stent placement and scheduled for a ISABELL in which Dr. Grier advised her to see another psychiatric assistant in [place]. She also endorses not taking her insulin for the past 2 days. Patient reports that she does not has a history of PAD or is aware of Raynaud's phenomenon. Patient reports that her extremities are bluish in color when it gets cold. Patient also reports smoking 5 cigarettes per day. She reports that she lives at home with her boyfriend. Patient reports that over 3 weeks ago her foot had struck her boyfriend's foot, however did not have any laceration or break are opening of her skin. Past Medical History See H&P Past Surgical History See H&P Family History: Malignant melanoma G8 FATHER, Onset:60 years & older Malignant neoplasm of breast G8 MOTHER, Onset:60 years & older Prostate carcinoma G8 FATHER, Onset:60 years & older Allergies: Coded Allergies: Tetanus Toxoid (Verified Allergy, Unknown, 03/25/15) Uncoded Allergies: LATEX BANDAIDS (Allergy, Unknown, 03/25/15) Home Meds Active Scripts Isopropyl Alcohol (Alcohol Prep Pad) 70 % Pad, % XX TID, #100 5 Refills TO [facility] INJECTION SITE Prov:MACRINA STEPHENS RESIDENT 02/23/25 Lancets (ACTI-SHARLA LANCETS 28G) 28 G Mis, G XX TID, #100 5 Refills USE FOR SERUM GLUCOSE MEASUREMENT Prov:MACRINA STEPHENS RESIDENT 02/23/25 Insulin Syringe/Needle U-100 (Bd Insulin Syringe Ultraf) 0.5 Mg/31 G Mis, MG XX TID, #100 3 Refills USE FOR INSULIN ADMINISTRATION Prov:MACRINA STEPHENS RESIDENT 02/23/25 Blood Glucose Monitoring Suppl (D-Care Glucometer Kit/Glu W/Device) 1 Kit Kit, KIT XX TID, #1 1 Refill PLEASE MEASURE BLOOD SUGAR THREE TIMES DAILY BEFORE EACH MEAL Prov:MACRINA STEPHENS RESIDENT 02/23/25 Insulin Lispro (Human) (Humalog) 100 Unit/Ml Inj, 10 UNITS SC AC for 30 Days, #5 INJ Prov:MACRINA STEPHENS RESIDENT 02/23/25 Insulin Glargine (Lantus) 100 Unit/Ml Inj, 24 UNITS SC QAM for 30 Days, #5 INJ 3 Refills Prov:MACRINA STEPHENS RESIDENT 02/23/25 Hydrocodone-Acetaminophen (Hydrocodone Bitartrate/AC 5-325 mg) 1 Tab Tab, 1 TAB PO Q8HP PRN for 7 Days, #21 TAB Prov:NOMI DUNCAN NP 02/23/25 Furosemide (Lasix) 20 Mg Tb, 1 TAB PO DAILY for 30 Days, #30 TAB 1 Refill Prov:NOMI DUNCAN NP 02/23/25 Potassium Chloride (Klor-Con 8) 8 Meq Tab, 8 MEQ PO DAILY for 30 Days, #30 TAB Prov:NOMI DUNCAN NP 02/23/25 Sacubitril-Valsartan (Entresto 24-26 mg) 1 Tab Tab, 0.5 TAB PO BID for 30 Days, #30 TAB 2 Refills Prov:NOMI DUNCAN NP 02/23/25 Aspirin (Aspir-81) 81 Mg Tab, 1 TAB PO DAILY, #30 TAB 5 Refills Prov:NOMI DUNCAN DENTAL TECHNOLOGIST 02/23/25 Ticagrelor Base (BRILINTA) 90 Mg Tab, 90 MG PO BID for 30 Days, #60 TAB 2 Refills Prov:NOMI DUNCAN DENTAL TECHNOLOGIST 02/23/25 Atorvastatin Calcium (ATORVASTATIN CALCIUM) 80 Mg Tab, 1 TAB PO DAILY for 30 D ays, #30 TAB 5 Refills Prov:NOMI DUNCAN DENTAL TECHNOLOGIST 02/23/25 Empagliflozin (Jardiance) 10 Mg Tab, 10 MG PO DAILY for 30 Days, #30 TAB 3 Refills Prov:NOMI DUNCAN DENTAL TECHNOLOGIST 02/23/25 Reported Medications Ticagrelor Base (BRILINTA) 90 Mg Tab, 90 MG PO, TAB 03/24/25 Amlodipine Besylate (Amlodipine Besylate) 5 Mg Tab, 1 TAB PO DAILY 03/24/25 Aspirin (Aspirin) 81 Mg Chw, 81 MG PO, TAB.CHEW 02/20/25 Metoprolol Succinate (Toprol Xl) 25 Mg Tab, 1 TAB PO DAILY, #30 TAB 5 Refills 02/20/25 Glipizide (Glipizide) 10 Mg Tab, 10 MG PO BIDWM for 30 Days, MG 02/20/25 Vital Signs Vital Signs Date Time Temp Pulse Resp B/P (MAP) Pulse Ox O2 Delivery O2 Flow Rate FiO2 03/28/25 10:00 73 93/51 03/28/25 09:00 96.9 18 96 96.9 03/28/25 08:05 Room Air* 0 21 Physical Exam Dermatological: Skin is dry with mild erythema and some maceration around the wound site No gross deformities noted Mild non-pitting edema present bilaterally Right 5th toe discoloration left heel dryness Vascular: Dorsalis pedis and posterior tibial pulses are 1+ bilaterally Capillary refill is under 2 seconds Skin temperature is warm bilaterally Neurologic: Protective sensation is absent on the plantar forefoot bilaterally Monofilament testing reveals decreased sensation in multiple plantar sites Musculoskeletal: Range of motion at the ankle and MTP joints is within normal limits. Strength is 5/5 in all tested muscle groups. Gait is antalgic due to offloading of the affected limb. Labs/Diagnostic Data Labs Test 03/28/25 05:53 03/28/25 05:12 03/26/25 04:48 03/25/25 06:05 Range/Units POC Glucose 120 H 70-106 mg/dl White Blood Count 24.5 H 4.4-10.8 10^3/uL Red Blood Count 5.16 4.0-5.20 10^6/uL Hemoglobin 14.3 12.2-16.2 g/dL Hematocrit 44.0 36.0-46.0 % Mean Corpuscular Volume 85.2 80.0-100.0 fL Mean Corpuscular Hemoglobin 27.6 L 28.0-32.0 pg Mean Corpuscular Hemoglobin Concent 32.5 32.0-36.0 g/dL Red Cell Distribution Width 16.0 H 11.8-14.3 % Platelet Count 322 140-450 10^3/uL Mean Platelet Volume 7.2 6.9-10.8 fL Neutrophils (%) (Auto) 37.0-80.0 % Lymphocytes (%) (Auto) 10.0-50.0 % Monocytes (%) (Auto) 0.0-12.0 % Basophils (%) (Auto) 0.0-2.0 % Neutrophils # (Auto) 1.6-8.6 10 ^3/uL Lymphocytes # (Auto) 0.4-5.4 10 ^3/uL Monocytes # (Auto) 0-1.3 10 ^3/uL Differential Total Cells Counted 100.0 100 Neutrophils % (Manual) 18 L 37.0-80.0 Band Neutrophils % (Manual) 0 Lymphocytes % (Manual) 72 H 10.0-50.0 Monocytes % (Manual) 5 0-12 Eosinophils % (Manual) 2 0-7 Basophils % (Manual) 0 0.0-2.0 Metamyelocytes % (manual) 0 Myelocytes % (Manual) 0 Promyelocytes % (Manual) 0 Blast Cells % (Manual) 0 Reactive Lymphocytes 3 Platelet Estimate Adequate Prothrombin Time 10.6 9.3-11.8 sec Prothrombin Time INR 1.00 0.9-1.15 Activated Partial Thromboplast Time 25.6 24.5-34.5 SEC Sodium Level 139 136-145 mmol/L Potassium Level 4.2 3.5-5.1 mmol/L Chloride Level 105 98-107 mmol/L Carbon Dioxide Level 25 20-31 mmol/L Anion Gap 9 5-15 Blood Urea Nitrogen 13 9-23 mg/dL Creatinine 1.00 0.550-1.02 mg/dL Glomerular Filtration Rate Calc 63 >90 mL/min BUN/Creatinine Ratio 13.0 10.0-20.0 Serum Glucose 91 74-106 mg/dL Calcium Level 8.9 8.7-10.4 mg/dL Random Vancomycin Level 9.7 5-10 ug/mL Total Bilirubin 0.5 0.2-1.0 mg/dL Aspartate Amino Transferase (AST) 40 13-40 U/L Alanine Aminotransferase (ALT) 26 7-40 U/L Alkaline Phosphatase 205 H 46-116 U/L Total Protein 7.3 5.7-8.2 g/dL Albumin 4.4 3.2-4.8 g/dL Test 03/24/25 09:50 03/24/25 09:30 03/24/25 07:12 Range/Units Urine Color Light-yellow Yellow Urine Clarity Clear Clear Urine pH 5.5 5.0-9.0 Urine Specific [place] 1.035 1.001-1.035 Urine Protein Negative Negative Urine Ketones Negative Negative Urine Blood Negative Negative /uL Urine Nitrite Negative Negative Urine Bilirubin Negative Negative Urine Urobilinogen Normal Negative mg/dL Urine Leukocyte Esterase 1+ Negative /uL Urine RBC 2 0 - 4 /hpf Urine Microscopic WBC 5 0-5 /HPF Urine Squamous Epithelial Cells Few <5 /hpf Urine Bacteria Few H None Seen /hpf Urine Glucose 4+ H Normal mg/dL Urine Opiates Screen Neg NEGATIVE Urine Fentanyl Screen Neg NEGATIVE Urine Barbiturates Screen Neg NEGATIVE Urine Phencyclidine Screen Neg NEGATIVE Urine Amphetamines Screen Neg NEGATIVE Urine Benzodiazepines Screen Neg NEGATIVE Urine Cocaine Screen Neg NEGATIVE Urine Cannabinoids Screen Neg NEGATIVE Lactic Acid Level 1.6 0.4-2.0 mmol/L Red Blood Cell Morphology Normal Erythrocyte Sedimentation Rate 18 0-20 mm/hr Hemoglobin A1c 10.4 H <5.7 % A1C Lactate Dehydrogenase 246 120-246 U/L Troponin I High Sensitivity 50 *H </=34 ng/L C-Reactive Protein High Sensitivity 1.05 H <1.0 mg/dL Microbiology Date/Time Source Procedure Growth Status 03/24/25 23:13 Nose MRSA Screen - Final Complete 03/24/25 09:50 Voided Urine Urine Culture - Final Complete 03/24/25 09:30 Blood Blood Culture - Preliminary NO GROWTH AFTER 72 HOURS OF INCUBATION. Resulted Problems(with codes): (1) Shoulder pain (2) Right shoulder strain (3) Systolic heart failure (4) STEMI (ST elevation myocardial infarction) (5) Closed fracture of fifth toe of right foot (6) Osteomyelitis (7) Demand ischemia Plan/Recommendation ASSESSMENT: Patient is a 65-year-old seen for a right 5th toe discoloration PLAN: - The patients chart was reviewed, clinical findings were discussed with the patient, the etiologies of the conditions were discussed in detail, and a treatment plan was agreed to at this time, with both oral and written instructions provided. - reviewed advanced imaging - recommend waiting to see if toe demarcates or color improves with time - improvement in color with elevation - recommend elevation while non ambulatory All questions were answered and concerns addressed to the patient's satisfaction. The patient was given the phone number to the clinic and was told how to make contact with the clinic should any concerns or questions arise. Patient understands that if any questions or concerns arise prior to the next appointment, we should be contacted immediately. FOLLOW-UP: Continue to follow while inpatient Plan discussed with: Patient Visit Coding Podiatry Date of Service if different f: Mar 28, 2025 Billing Provider: MARION ESCOBAR DPM Podiatry Common Visit Codes: CONSULT ONLY Podiatry Consult Codes: 24160-RI/OBS CONSLTJ NEW/EST HI 80 MARION ESCOBAR DPM Mar 28, 2025 11:51
[2025-03-28] MEDS: VANCOMYCIN 500mg/100mL 100 ML IV SCH (15:00)
--- NOTE | 2025-03-28 16:14 | DVHPNRES ---
Progress Note Date Seen: Mar 28, 2025 Resident Creating Document: SANDOVAL RIVERS RESIDENT Has the PT tested + for MRSA If YES, has PT been informed?: No Medical Necessity Reason Pt with a Central, PICC or Fol: No Subjective Review of Systems Mrs. Cass Zhong is a 65-year-old female, with past medical history of hyperlipidemia, hypertension, CA with PTCA (01/2025) and leukemia (patient does not remember the type). The patient presented to the ED with history of 3 weeks of right 5th toe pain, 7/10, sharp-like, continue, no radiation. The patient reports she hit her right 5th toe against her boyfriend's boot, at that time she presented sudden sharp pain 10/10 and discomfort but denies laceration, bleeding or deformity of the toe; the pain is worsen with movement of the right foot and when she bear weight on it, Improve with rest. The patient reports she started noticing her right 5th toe change in color, from red to purple-keily, with worsen pain and swelling, this prompted her visit to the ED. Also, reports that her extremities are bluish in color when it gets cold. The patient denies other trauma, fever, chills, abdominal pain, chest pain, headache or other symptoms. In the ED, Vs were stable. The patient was admitted for further management. Admission course: 03/25/25, the patient was evaluated at bedside. VS, labs and chart was reviewed. WBC: 31.4x10e3/uL. Hb: 15.1mg/dl a peripheral blood smear was order to rule out acute leukemia. Right Lower Extremity Arterial Duplex: No hemodynamically significant stenosis based on peak systolic velocity criteria. Right Foot xray: 1. No acute fracture or dislocation. Sclerosis in the 5th proximal phalanx with adjacent soft tissue swelling. This could be related to chronic osteomyelitis in the appropriate clinical setting. MRI is recommended.Antonette doppler: No right lower extremity deep venous thrombosis. Ct scan: No acute fracture or dislocation. No CT evidence of osteomyelitis. Soft tissue swelling lateral forefoot. Right foot MRI: No MR evidence of osteomyelitis. Small areas of pressure related change and/or infection along the plantar surface of the forefoot and great toe. The patient reports pain in her right 5th toe has improved today with the pain medications also, she reports left heel pain due to a open wound, an xray of the left foot was ordered. The patient continues with IV antibiotics: Zocyn and vancomicyn. We will continue following the progress of this patient. On 03/26/25- patient was seen at bedside today. Patient mentions she still has the pain in both her feet. Smear was evaluated, no blasts were seen. White count today was 27.7. We increased the dose of Lantus from 20 to 25. Pending podiatry consult and bone marrow biopsy by IR. On 03/27/25, the patient was re-evaluated and examined at the bedside. VS, labs and chart was reviewed. WBC are trending down 24.9. The patient report improvement on right and left foot. Peripheral blood smear did no showed blast. Podiatric consult is pending. The patient reports the pain has improvement with medication to /10. Bone marrow biopsy by IR is still pending. We will continue following up with this patient progress. On 03/28/25, the patient has been re- assessed and examined at bedside. VS, labs and chart was reviewed. WBC trending down. Bone marrow biopsy was performed today. Podiatry consult was completed, Dr. Tyler recommended Right foot observation and elevation of the extremity to improve healing. The patient reports feeling better, no new complaints today. We will follow up the progress of this patient. ROS: Constitutional: Weight loss. No: Fever, Chills, Sweats, Weakness, Malaise Eyes: No: Pain, Vision change, Conjunctivae inflammation, Eyelid inflammation, Other, Redness ENT: No: Ear pain, Ear discharge, Nose pain, Nose discharge, Nose congestion, Mouth pain, Mouth swelling, Throat pain, Throat swelling Respiratory: mild Shortness of breath; No: Cough, Dry, SOB with excertion, Wheezing, Hemoptysis, Pleuritic Pain, Sputum, Wheezing Cardiovascular: Chest Pain; No: Palpitations, Orthopnea, Paroxysmal Noc. Dyspnea, Edema, Lt Headedness Gastrointestinal: No: Nausea, Vomiting, Abdominal Pain, Diarrhea, Constipation, Melena, Hematochezia Genitourinary: No Dysuria, No Frequency, No Incontinence, No Hematuria, No Retention Musculoskeletal: right 5th toe pain. Skin: Pain is improving on 5th right toe. No: Rash, Lesions, Jaundice, Bruising Neurological: No: Weakness, Numbness, Incoordination, Change in speech, Confusion, Seizures Objective vital signs Vital Sign Date Time Temp Pulse Resp B/P (MAP) Pulse Ox O2 Delivery O2 Flow Rate FiO2 03/28/25 13:00 97.2 80 18 134/60 (84) 90 97.2 03/28/25 08:05 Room Air* 0 21 Total Intake and Output 03/27/25 03/27/25 03/28/25 15:00 23:00 07:00 Intake Total 100 ml 1070 ml 600 ml Balance 100 ml 1070 ml 600 ml medications Current Medications Medications Dose Ordered Sig/Scott Route Start Time Stop Time Status Last Admin Dose Admin Acetaminophen/ Hydrocodone Bitart 1 tab Q4HP PRN PO 03/24/25 09:15 03/28/25 06:27 1 TAB Ondansetron HCl 4 mg Q4HP PRN IV 03/24/25 09:15 Acetaminophen 650 mg Q6HP PRN PO 03/24/25 09:15 Morphine Sulfate 2 mg Q4HPRN PRN IV 03/24/25 09:15 03/28/25 04:04 2 MG Aspirin 81 mg DAILY PO 03/24/25 10:00 03/28/25 10:14 81 MG Empaglifozin 10 mg DAILY PO 03/24/25 10:00 03/28/25 10:14 10 MG Sacubitril/ Valsartan 0.5 tab BID PO 03/24/25 10:00 03/27/25 21:21 0.5 TAB Ticagrelor 90 mg BID PO 03/24/25 10:00 03/28/25 10:14 90 MG Patient Own Medication 1 tab DAILY PO 03/24/25 10:00 UNV Patient Own Medication 1 tab DAILY PO 03/24/25 10:00 UNV Furosemide 40 mg DAILY IV 03/24/25 10:00 03/27/25 12:24 40 MG Atorvastatin Calcium 80 mg HS PO 03/24/25 22:00 03/27/25 21:21 80 MG Metoprolol Succinate 25 mg DAILY PO 03/24/25 10:00 03/27/25 12:29 25 MG Piperacillin Sod/ Tazobactam Sod 100 ml @ 25 mls/hr Q8H IV 03/25/25 02:00 03/28/25 10:10 25 MLS/HR Vancomycin HCl 0 ml @ 0 mls/hr PER PHARMACY IV 03/25/25 09:45 Nicotine 1 patch DAILY TD 03/26/25 10:00 03/28/25 10:26 1 PATCH Diagnostic Test (Pha) 1 strip ACHS 03/25/25 17:00 03/28/25 11:30 1 STRIP Dextrose 50 ml UD PRN IV 03/25/25 16:45 Enoxaparin Sodium 40 mg DAILY SC 03/26/25 10:00 03/28/25 10:17 40 MG Insulin Glargine 25 units HS SC 03/26/25 08:30 03/27/25 21:20 25 UNITS Insulin Human Lispro 3 units AC SC 03/26/25 11:30 03/28/25 06:26 3 UNITS Insulin Human Regular ACHS SC 03/26/25 11:30 03/28/25 11:30 3 UNITS Vancomycin HCl 100 ml @ 200 mls/hr Q8H IV 03/28/25 15:00 Examination General Appearance: Pale, Alert, Oriented X3, Cooperative, No acute distress. On O2 by NC 2L HEENT: Atraumatic, PERRLA, EOMI, Mucous membranes moist/pink Respiratory: Clear to auscultation, Normal air movement Cardiovascular: Regular rate, Normal S1, Normal S2 Abdominal: Normal bowel sounds, Soft, no tenderness Extremities: Right foot: 5th toe purple discoloration, tender to touch. normal ROM. Left foot: heel open wound, no discharge, cover with clean dressing, tender to light touch. Neuro: Normal speech, Strength at 5/5 X4 ext, Normal tone, Sensation intact Psych/Mental Status: Mental status NL, Mood NL laboratory and microbiology Laboratory Tests 03/28/25 12:00 03/28/25 05:12 Test 03/28/25 05:12 Range/Units Serum Glucose 91 74-106 mg/dL Microbiology Date/Time Source Procedure Growth Status 03/24/25 23:13 Nose MRSA Screen - Final Complete 03/24/25 09:50 Voided Urine Urine Culture - Final Complete 03/24/25 09:30 Blood Blood Culture - Preliminary NO GROWTH AFTER 72 HOURS OF INCUBATION. Resulted Problem List/Assessment/Plan Problem List/Assessment/Plan #Sepsis likely due to left foot cellulitis vs osteomyelitis #Right foot pain with edema likely osteomyelitis versus other etiology #Rule out peripheral artery disease Antibiotics- Zosyn IV and Vancomycin IV Pain management Urine culture: gram negative rods. Wound culture with Gram stain Blood culture: negative in last 24hrs Podiatry consult was completed: right foot elevation. #Chronic Leukemia r/o acute on chronic leukemia Leukocitosys: WBC:24.5 Blood smear: no blasts Bone marrow aspiration: Completed, awaiting for results IR consult completed #Left foot pain with edema likely osteomyelitis versus other etiology Left foot Xray. Osteomyelitis ruled out #CDA with stent placement (01/2025) Atorvastain 40mg po daily Aspirin 81mg po daily Tricaglerol 90mg po daily #Diabetes mellitus type 2 with hyperglycemia. Insulin sliding scale HbA1C: 10.4 #Tobacco usage (<1 pack per day) Nicotine patch Counseling about quitting smoking. Diet: Low carbohydrate and cardiac diet DVT prophylaxis lovenox 40sc Goals of care discussed with the patient > 35 min. Discussed plan of care with Code status: Full code PCP: Doroteo. Plan discussed with: Patient, the patient agrees with the plan. Plan discussed with: Patient My Orders My Orders Orders - SANDOVAL RIVERS RESIDENT Procedure Category Date Status Time Ct Guidance For CT 03/28/25 Resulted Needle Placeme 10:[address] 03/28/25 Resulted 10:05 Complete Blood Count LAB 03/29/25 Verified 04:00 Basic Metabolic Panel LAB 03/29/25 Verified 04:00 Urine Bacterial ANI 03/28/25 Logged Culture 12:11 Vancomycin 500mg/100ml PHA 03/28/25 In Process 15:00 Vancomycin Per ANAYA 03/28/25 In Process Pharmacy Protoc 14:20 Vancomycin,Trough LAB 03/29/25 Verified 14:00 Dietary Evaluation Review Recommendations by RD: Dietary education by RD Comments: 1) Initiate MVI @ 1 tb qd 2) Initiate vitamin C @ 500 mg bid and zinc sulfate @ 220 mg qd for 7 days 3) Consider lowering CCHO from 60g to 45g 4) Refer to outpatient RD/CD[facility] for diabetes education 5) Follow-up with cardiology and podiatry 6) Continue to monitor I&O, labs, and skin integrity Expected Outcomes/Goals: 1) appetite and labs to improve 2) wounds to improve 3) f/u in 3-5 days Date of Service: Mar 28, 2025 Billing Provider: NIYA PANDEY MD Common Visit Codes: [id number] INP/OBS CARE(HIGH) Date of Service: Mar 28, 2025 Billing Provider: NIYA PANDEY MD Common Visit Codes: [id number] INP/OBS CARE(HIGH) SANDOVAL RIVERS RESIDENT Mar 28, 2025 16:14 NIYA PANDEY MD Mar 28, 2025 18:12
[2025-03-29 01:00] VITALS: BP 127/81; PULSE 91; RESP 18; TEMP 98.3; O2SAT 94
[2025-03-29 05:00] VITALS: BP 122/68; PULSE 68; RESP 18; TEMP 97.8; O2SAT 94
[2025-03-29 06:10] LABS: Hematocrit 44.1 % (36.0-46.0); Hemoglobin 14.5 g/dL (12.2-16.2); Mean Corpuscular Hemoglobin 27.7 pg (28.0-32.0); Mean Corpuscular Volume 84.3 fL (80.0-100.0)
[2025-03-29 06:24] LABS: Anion Gap 6 (5-15); Carbon Dioxide 28 mmol/L (20-31); Chloride 106 mmol/L (98-107); Potassium 4.7 mmol/L (3.5-5.1); Sodium 140 mmol/L (136-145)
[2025-03-29 06:25] LABS: Calcium 9.2 mg/dL (8.7-10.4)
[2025-03-29 06:30] LABS: BUN/Creatinine Ratio 16.8 (10.0-20.0); Blood Urea Nitrogen 18 mg/dL (9-23)
[2025-03-29 06:31] LABS: Glucose 148 mg/dL (74-106)
[2025-03-29 06:55] LABS: Total Cells Counted 100.0 (100)
[2025-03-29 08:48] VITALS: BP 136/81; PULSE 74; RESP 18; TEMP 97.6; O2SAT 95
--- NOTE | 2025-03-29 09:02 | DVHDSRES ---
Discharge Summary Date of Admission Resident Creating Document: SANDOVAL RIVERS RESIDENT Mar 24, 2025 at 09:04 Date of Discharge: Mar 29, 2025 Admitting Diagnosis #Sepsis likely due to Left foot cellulitis/osteomyelitis #Right foot pain on 5th toe with edema likely osteomyelitis #Possible bilateral peripheral artery disease # Possible Acute on chronic leukemia #Diabetes mellitus type 2 with hyperglycemia. #Tobacco usage (<1 pack per day) Diet: Low carbohydrate and cardiac diet Goals of care discussed with the patient > 35 min. Discussed plan of care with Code status: Full code PCP: Doroteo. The patient agrees with discharge plan. Wounds: Left foot wound localized on the heel. Labs/Diagnostic Data: Laboratory Results Test 03/29/25 06:32 03/29/25 05:34 03/28/25 12:00 03/28/25 05:12 POC Glucose 134 mg/dl (70-106) White Blood Count 22.5 10^3/uL (4.4-10.8) Red Blood Count 5.23 10^6/uL (4.0-5.20) Hemoglobin 14.5 g/dL (12.2-16.2) Hematocrit 44.1 % (36.0-46.0) Mean Corpuscular Volume 84.3 fL (80.0-100.0) Mean Corpuscular Hemoglobin 27.7 pg (28.0-32.0) Mean Corpuscular Hemoglobin Concent 32.8 g/dL (32.0-36.0) Red Cell Distribution Width 16.0 % (11.8-14.3) Platelet Count 329 10^3/uL (140-450) Mean Platelet Volume 7.2 fL (6.9-10.8) Neutrophils (%) (Auto) % (37.0-80.0) Lymphocytes (%) (Auto) % (10.0-50.0) Monocytes (%) (Auto) % (0.0-12.0) Basophils (%) (Auto) % (0.0-2.0) Neutrophils # (Auto) 10 ^3/uL (1.6-8.6) Lymphocytes # (Auto) 10 ^3/uL (0.4-5.4) Monocytes # (Auto) 10 ^3/uL (0-1.3) Differential Total Cells Counted 100.0 (100) Neutrophils % (Manual) 21 (37.0-80.0) Band Neutrophils % (Manual) 1 Lymphocytes % (Manual) 72 (10.0-50.0) Monocytes % (Manual) 1 (0-12) Eosinophils % (Manual) 0 (0-7) Basophils % (Manual) 0 (0.0-2.0) Metamyelocytes % (manual) 0 Myelocytes % (Manual) 0 Promyelocytes % (Manual) 0 Blast Cells % (Manual) 0 Reactive Lymphocytes 5 Platelet Estimate Adequate Sodium Level 140 mmol/L (136-145) Potassium Level 4.7 mmol/L (3.5-5.1) Chloride Level 106 mmol/L (98-107) Carbon Dioxide Level 28 mmol/L (20-31) Anion Gap 6 (5-15) Blood Urea Nitrogen 18 mg/dL (9-23) Creatinine 1.07 mg/dL (0.550-1.02) Glomerular Filtration Rate Calc 58 mL/min (>90) BUN/Creatinine Ratio 16.8 (10.0-20.0) Serum Glucose 148 mg/dL (74-106) Calcium Level 9.2 mg/dL (8.7-10.4) Vancomycin Level Trough 10.3 ug/mL (5-10) Prothrombin Time 10.6 sec (9.3-11.8) Prothrombin Time INR 1.00 (0.9-1.15) Activated Partial Thromboplast Time 25.6 SEC (24.5-34.5) Test 03/26/25 04:48 03/25/25 06:05 03/24/25 09:50 03/24/25 09:30 Random Vancomycin Level 9.7 ug/mL (5-10) Total Bilirubin 0.5 mg/dL (0.2-1.0) Aspartate Amino Transferase (AST) 40 U/L (13-40) Alanine Aminotransferase (ALT) 26 U/L (7-40) Alkaline Phosphatase 205 U/L (46-116) Total Protein 7.3 g/dL (5.7-8.2) Albumin 4.4 g/dL (3.2-4.8) Urine Color Light-yellow (Yellow) Urine Clarity Clear (Clear) Urine pH 5.5 (5.0-9.0) Urine Specific Monarch 1.035 (1.001-1.035) Urine Protein Negative (Negative) Urine Ketones Negative (Negative) Urine Blood Negative /uL (Negative) Urine Nitrite Negative (Negative) Urine Bilirubin Negative (Negative) Urine Urobilinogen Normal mg/dL (Negative) Urine Leukocyte Esterase 1+ /uL (Negative) Urine RBC 2 /hpf (0 - 4) Urine Microscopic WBC 5 /HPF (0-5) Urine Squamous Epithelial Cells Few /hpf (<5) Urine Bacteria Few /hpf (None Seen) Urine Glucose 4+ mg/dL (Normal) Urine Opiates Screen Neg (NEGATIVE) Urine Fentanyl Screen Neg (NEGATIVE) Urine Barbiturates Screen Neg (NEGATIVE) Urine Phencyclidine Screen Neg (NEGATIVE) Urine Amphetamines Screen Neg (NEGATIVE) Urine Benzodiazepines Screen Neg (NEGATIVE) Urine Cocaine Screen Neg (NEGATIVE) Urine Cannabinoids Screen Neg (NEGATIVE) Lactic Acid Level 1.6 mmol/L (0.4-2.0) Test 03/24/25 07:12 Red Blood Cell Morphology Normal Erythrocyte Sedimentation Rate 18 mm/hr (0-20) Hemoglobin A1c 10.4 % A1C (<5.7) Lactate Dehydrogenase 246 U/L (120-246) Troponin I High Sensitivity 50 ng/L (</=34) C-Reactive Protein High Sensitivity 1.05 mg/dL (<1.0) Other Laboratory Tests 03/29/25 05:34 Brief Hx & Hospital Course: Review of Systems Mrs. Cass Zhong is a 65-year-old female, with past medical history of hyperlipidemia, hypertension, NM with PTCA (01/2025) and leukemia (patient does not remember the type). The patient presented to the ED with history of 3 weeks of right 5th toe pain, 7/10, sharp-like, continue, no radiation. The patient reports she hit her right 5th toe against her boyfriend's boot, at that time she presented sudden sharp pain 10/10 and discomfort but denies laceration, bleeding or deformity of the toe; the pain is worsen with movement of the right foot and when she bear weight on it, Improve with rest. The patient reports she started noticing her right 5th toe change in color, from red to purple-keily, with worsen pain and swelling, this prompted her visit to the ED. Also, reports that her extremities are bluish in color when it gets cold. The patient denies other trauma, fever, chills, abdominal pain, chest pain, headache or other symptoms. In the ED, Vs were stable. The patient was admitted for further management. Admission course: 03/25/25, the patient was evaluated at bedside. VS, labs and chart was reviewed. WBC: 31.4x10e3/uL. Hb: 15.1mg/dl a peripheral blood smear was order to rule out acute leukemia. Right Lower Extremity Arterial Duplex: No hemodynamically significant stenosis based on peak systolic velocity criteria. Right Foot xray: 1. No acute fracture or dislocation. Sclerosis in the 5th proximal phalanx with adjacent soft tissue swelling. This could be related to chronic osteomyelitis in the appropriate clinical setting. MRI is recommended.[place] doppler: No right lower extremity deep venous thrombosis. Ct scan: No acute fracture or dislocation. No CT evidence of osteomyelitis. Soft tissue swelling lateral forefoot. Right foot MRI: No MR evidence of osteomyelitis. Small areas of pressure related change and/or infection along the plantar surface of the forefoot and great toe. The patient reports pain in her right 5th toe has improved today with the pain medications also, she reports left heel pain due to a open wound, an xray of the left foot was ordered. The patient continues with IV antibiotics: Zocyn and vancomicyn. We will continue following the progress of this patient. On 03/26/25- patient was seen at bedside today. Patient mentions she still has the pain in both her feet. Smear was evaluated, no blasts were seen. White count today was 27.7. We increased the dose of Lantus from 20 to 25. Pending podiatry consult and bone marrow biopsy by IR. On 03/27/25, the patient was re-evaluated and examined at the bedside. VS, labs and chart was reviewed. WBC are trending down 24.9. The patient report improvement on right and left foot. Peripheral blood smear did no showed blast. Podiatric consult is pending. The patient reports the pain has improvement with medication to 06/11. Bone marrow biopsy by IR is still pending. We will continue following up with this patient progress. On 03/28/25, the patient has been re- assessed and examined at bedside. VS, labs and chart was reviewed. WBC trending down. Bone marrow biopsy was performed today. Podiatry consult was completed, Dr. Tyler recommended Right foot observation and elevation of the extremity to improve healing. The patient reports feeling better, no new complaints today. We will follow up the progress of this patient. On 03/29/25, the patient has been re-evaluated and examined at bedside. VS, labs and chart was reviewed. WBC trending down. Bone marrow biopsy was performed 03/28/25. Podiatry consult was completed, Dr. Tyler recommended Right foot observation and elevation or the right foot to improve healing, he will f/u as outpatient. The patient reports feeling better, no new complaints today. The patient will be discharge today, th bone marrow results will be discussed with Dr. Walters as an out patient. The patient will f/u with PCP, Podiatry and oncologist in 1 week. Pain medication was sent to the pharmacy. ROS: Constitutional: Weight loss. No: Fever, Chills, Sweats, Weakness, Malaise Eyes: No: Pain, Vision change, Conjunctivae inflammation, Eyelid inflammation, Other, Redness ENT: No: Ear pain, Ear discharge, Nose pain, Nose discharge, Nose congestion, Mouth pain, Mouth swelling, Throat pain, Throat swelling Respiratory: mild Shortness of breath; No: Cough, Dry, SOB with excertion, Wheezing, Hemoptysis, Pleuritic Pain, Sputum, Wheezing Cardiovascular: Chest Pain; No: Palpitations, Orthopnea, Paroxysmal Noc. Dyspnea, Edema, Lt Headedness Gastrointestinal: No: Nausea, Vomiting, Abdominal Pain, Diarrhea, Constipation, Melena, Hematochezia Genitourinary: No Dysuria, No Frequency, No Incontinence, No Hematuria, No Retention Musculoskeletal: right 5th toe pain. Skin: Pain is improving on 5th right toe. No: Rash, Lesions, Jaundice, Bruising Neurological: No: Weakness, Numbness, Incoordination, Change in speech, Confusion, Seizures General Appearance: Pale, Alert, Oriented X3, Cooperative, No acute distress. On O2 by NC 2L HEENT: Atraumatic, PERRLA, EOMI, Mucous membranes moist/pink Respiratory: Clear to auscultation, Normal air movement Cardiovascular: Regular rate, Normal S1, Normal S2 Abdominal: Normal bowel sounds, Soft, no tenderness Extremities: Right foot: 5th toe purple discoloration, tender to touch. normal ROM. Left foot: heel open wound, no discharge, cover with clean dressing, no tender. Neuro: Normal speech, Strength at 5/5 X4 ext, Normal tone, Sensation intact Psych/Mental Status: Mental status NL, Mood NL Consults/Reason for consult Wound consult for left foot Podiatry consult for right foot IR consult for Bone marrow biopsy Operations or Procedures PROCEDURE(s): CXRP - CHEST PORTABLE REASON: sob ORDER NUMBER(s): [id number], ACCESSION NUMBER(s): [id number] CHEST RADIOGRAPH Indication: sob Technique: Single frontal view of the chest was obtained Comparison: XY CHEST PORTABLE on DOS: 02/22/25 FINDINGS: Lines and Tubes: None Lungs: Bilateral interstitial prominence. No focal consolidation. Pleura: No effusion. No pneumothorax. Cardiomediastinal contours: Cardiomegaly. Bones: No acute osseous abnormality. IMPRESSION: 1. Cardiomegaly with bilateral interstitial prominence which may reflect pulmonary vascular congestion. EDURE(s): RLEAD - Rt Low Ext Art Duplex REASON: Right lower extremity arterial study for discoloration foot ORDER NUMBER(s): [id number], ACCESSION NUMBER(s): [id number] Right Lower Extremity Arterial Duplex Clinical History: Right lower extremity arterial study for discoloration foot Comparison: US BILAT LOW EXT ART DUPLEX on DOS: 02/20/25 Technique: Duplex Doppler evaluation including color Doppler and spectral/pulsed waveform analysis of the lower extremity arteries was performed. Findings: RIGHT: Peak systolic velocities are less than 150 cm/sec. The waveforms are monophasic with diastolic flow. IMPRESSION: No hemodynamically significant stenosis based on peak systolic velocity criteria. Monophasic arterial waveforms are present from the popliteal vein to the dorsalis pedis suggestive of underlying peripheral arterial disease. REFERENCE VALUES, [facility] ([facility]) vascular Imaging Lab Criteria: Peak systolic velocity ranges (in cm/sec) are as follows: <150 cm/s - <20 % stenosis 150-200 cm/s - 20-49% stenosis 200-300 cm/s - 50-75% stenosis >300 cm/s -> 75% stenosis EDURE(s): RFOT2 - R FOOT 2 VIEW XRAY REASON: osteo ORDER NUMBER(s): [id number], ACCESSION NUMBER(s): [id number] XY R FOOT 2 VIEW XRAY, INDICATION: osteo TECHNICAL DATA: Frontal and lateral views were obtained of the right foot. COMPARISON: XY R FOOT 3 VIEW XRAY on DOS: 02/20/25 FINDINGS: No fracture is identified. There is sclerosis in the 5th proximal phalanx. Joint spaces are maintained. Alignment is anatomic. The hallux sesamoids appear normal. Soft tissue swelling in the lateral forefoot at the level of the 5th toe. IMPRESSION: 1. No acute fracture or dislocation. 2. Sclerosis in the 5th proximal phalanx with adjacent soft tissue swelling. This could be related to chronic osteomyelitis in the appropriate clinical setting. MRI is recommended. EDURE(s): RLDVT - RT Lower DVT REASON: r/o dvt ORDER NUMBER(s): [id number], ACCESSION NUMBER(s): [id number] US RT Lower DVT HISTORY: r/o dvt COMPARISON: US RT LOW EXT ART DUPLEX on DOS: 03/24/25, US BILAT LOW EXT ART DUPLEX on DOS: 02/20/25 TECHNIQUE: Duplex doppler evaluation of the deep venous system of the lower extremity from the common femoral veins, superficial femoral vein, great saphenous vein, deep femoral vein, popliteal vein, and calf veins, including color doppler and spectral/pulsed waveform analysis, was performed. FINDINGS: Right: - Common femoral vein: Compressible - Deep femoral vein: Compressible - Femoral vein: Compressible - Popliteal vein: Compressible - Other: Nothing IMPRESSION: No right lower extremity deep venous thrombosis. EDURE(s): RFTCT - CT R FOOT WO CONTRAST REASON: POSSIBLE OSTEO ORDER NUMBER(s): [id number], ACCESSION NUMBER(s): [id number] CLINICAL INDICATION: POSSIBLE OSTEO TECHNIQUE: Noncontrast CT of the right foot was performed. Sagittal and coronal reformatted images are provided. COMPARISON: XY R FOOT 2 VIEW XRAY on DOS: 03/24/25 CT Dose: CTDI volume is 7.75 mGy. Dose-length product is 2.13 mGy*cm FINDINGS: No fracture or dislocation. No cortical erosion. No significant sclerosis in the 5th digit as not previously on x-ray. Soft tissue swelling of the lateral forefoot. IMPRESSION: 1. No acute fracture or dislocation. 2. No CT evidence of osteomyelitis. 3. Soft tissue swelling lateral forefoot. All CT scans at this medical facility are performed using dose modulation techniques as appropriate to a performed exam including the following: Automated exposure control was utilized; adjustment of the MA and/or KV according to patient size; and use of iterative reconstruction technique. EDURE(s): RFTMR - MRI R FOOT WO CONTRAST REASON: r/o OM vs abscess ORDER NUMBER(s): [id number], ACCESSION NUMBER(s): [id number] EXAM: MRI MRI R FOOT WO CONTRAST INDICATION: r/o OM vs abscess TECHNIQUE: Multiplanar, multisequence imaging of the right foot without contrast COMPARISON: CT CT R FOOT WO CONTRAST on DOS: 03/24/25 FINDINGS: BONES: No MR evidence of an acute fracture, osseous contusion, or aggressive focal osseous lesion. No MR evidence of osteomyelitis MUSCLES: Normal signal intensity and morphology. TENDONS: Intact. LIGAMENTS: Intact. JOINT SPACES: No joint effusion. NEUROVASCULAR: Normal. OTHER: Soft tissue swelling plantar medial aspect of the forefoot deep to the 1st metatarsal head. additional pressure related change deep to the 2nd metatarsal head. IMPRESSION: 1. No MR evidence of osteomyelitis. Small areas of pressure related change and/or infection along the plantar surface of the forefoot and great toe. EDURE(s): LFOT2 - L FOOT 2 VIEW XRAY REASON: Lt foot pain ORDER NUMBER(s): [id number], ACCESSION NUMBER(s): [id number] CLINICAL INDICATION: Lt foot pain TECHNIQUE: 2 radiographic views of the left foot were obtained. Comparison: XY R FOOT 2 VIEW XRAY on DOS: 03/24/25, XY R FOOT 3 VIEW XRAY on DOS: 02/20/25, XY R FOOT 3 VIEW XRAY on DOS: 02/17/25 FINDINGS/IMPRESSION: No fractures or dislocations. No radiopaque foreign bodies. EDURE(s): GA - CT GUIDANCE FOR NEEDLE PLACEME REASON: BONE MARROW BX ORDER NUMBER(s): [id number], ACCESSION NUMBER(s): [id number] PROCEDURE: CT GUIDED BIOPSY OF HISTORY: Leukemia. COMPARISON: None PROCEDURE: Informed consent and time-out was performed before the procedure. The right posterior pelvic bone was marked, sterilized, draped, and locally anesthetized using approximately 8 ml of 1% lidocaine. Axial CT images were used for localization. A 11 gauge [employer] Bone Biopsy kit was used to take 14 mL aspirate and 1 core. The biopsy needle was then removed. No immediate complications noted. FINDINGS: Axial CT images demonstrates biopsy needle within the right posterior pelvic bone. IMPRESSION: Successful CT-guided bone marrow aspiration and biopsy of the right posterior pelvic bone. EDURE(s): PL2CT - PELVIS WO CONTRAST REASON: BONE MARROW BX ORDER NUMBER(s): [id number], ACCESSION NUMBER(s): [id number] CT PELVIS WO CONTRAST, HISTORY: Leukemia. COMPARISON: None PROCEDURE: Informed consent and time-out was performed before the procedure. The right posterior pelvic bone was marked, sterilized, draped, and locally anesthetized using approximately 8 ml of 1% lidocaine. Axial CT images were used for localization. A 11 gauge [employer] Bone Biopsy kit was used to take 14 mL aspirate and 1 core. The biopsy needle was then removed. No immediate complications noted. FINDINGS: Axial CT images demonstrates biopsy needle within the right posterior pelvic bone. IMPRESSION: Successful CT-guided bone marrow aspiration and biopsy of the right posterior pelvic bone. Condition at Discharge: Stable Final Diagnosis/Problems List Sepsis likely due to left foot cellulitis /osteomyelitis Right foot pain with edema likely osteomyelitis Possible peripheral artery disease Acute on chronic leukemia Discharge Disposition: Home SNF Discharge Will this Physician continue t: No Discharge Instruct/Medications Diet: Cardiac 2g Na,low cholest Activity: No Restrictions, As Tolerated Follow Up/Referral: F/U with oncologist Dr. Shahid Figueroa for bone marrow biopsy F/U with podiatry Dr. Tyler in one week F/U with PCP in one week Medications: Norco5/325mg po Q8h prn Scheduled Amlodipine Besylate (Amlodipine Besylate), 1 TAB PO DAILY, (Reported) Atorvastatin Calcium (Atorvastatin Calcium), 1 TAB PO DAILY Empagliflozin (Jardiance), 10 MG PO DAILY Furosemide (Lasix), 1 TAB PO DAILY Glipizide (Glipizide), 10 MG PO BIDWM, (Reported) Insulin Glargine (Lantus), 24 UNITS SC QAM Insulin Lispro (Human) (Humalog), 10 UNITS SC AC Metoprolol Succinate (Toprol Xl), 1 TAB PO DAILY, (Reported) Sacubitril-Valsartan (Entresto 24-26 mg), 0.5 TAB PO BID Ticagrelor Base (Brilinta), 90 MG PO BID Scheduled PRN Hydrocodone-Acetaminophen (Hydrocodone Bitartrate/AC 5-325 mg), 1 TAB PO Q8HP PRN Miscellaneous Medications Aspirin (Aspirin), 81 MG PO, (Reported) Ticagrelor Base (Brilinta), 90 MG PO, (Reported) Discontinued Medications Aspirin (Aspir-81), 1 TAB PO DAILY Potassium Chloride (Klor-Con 8), 8 MEQ PO DAILY Durable Medical Equipment Blood Glucose Monitoring Suppl (D-Care Glucometer Kit/Glu W/Device), KIT XX TID, (DME) Insulin Syringe/Needle U-100 (Bd Insulin Syringe Ultraf), MG XX TID, (DME) Isopropyl Alcohol (Alcohol Prep Pad), % XX TID, (DME) Lancets (Acti-Calin Lancets 28G), G XX TID, (DME) Discharge Statement: "Patient was advised to return to the ER or call 911 if any headaches, dizziness, shortness of breath, chest pain, abdominal pain, bleeding, fevers, or worsening of medical condition. Patient was counseled about treatment plan, medications, possible side effects, patientverbalized understanding. All questions were answered to the best of my ability. This discharge took greater then 30 minutes in planning, reviewing documentation, counseling the patient, and discussing with other team members." ASSESSMENT ASSESSMENT Assessment Sepsis likely due to left foot cellulitis /osteomyelitis Right foot pain with edema likely osteomyelitis Possible peripheral artery disease Acute on chronic leukemia Date of Service: Mar 29, 2025 Billing Provider: NIYA PANDEY MD Common Visit Codes: 24593-ENY/OBS DISCH DAY >30min SANDOVAL RIVERS RESIDENT Mar 29, 2025 09:02 NIYA PANDEY MD Mar 30, 2025 22:16
[2025-03-29 10:22] VITALS: BP 136/81; PULSE 74; RESP 18; TEMP 97.6; O2SAT 95
== END 2025-03-29 13:50 | disposition home or self-care (01) | DRG 871 ==
LOC: ER 06:36 → EDBD 06:36 → OVERFLOW 09:04 → TELE-EAST 18:55
PROVIDERS: ADMIT Internal Medicine; ATTEND Internal Medicine
PROC: 079T3ZX Drainage of Bone Marrow, Percutaneous Approach, Diagnostic (ICD-10-PCS; principal; 2025-03-28)
PROC: 07DR3ZX Extraction of Iliac Bone Marrow, Percutaneous Approach, Diagnostic (ICD-10-PCS; 2025-03-28)
DX: A41.9 Sepsis, unspecified organism (principal); I21.A1 Myocardial infarction type 2; C91.10 Chronic lymphocytic leukemia of B-cell type not having achieved remission; L03.116 Cellulitis of left lower limb; N17.9 Acute kidney failure, unspecified; M86.9 Osteomyelitis, unspecified; F17.210 Nicotine dependence, cigarettes, uncomplicated; I10 Essential (primary) hypertension; E78.5 Hyperlipidemia, unspecified; E11.51 Type 2 diabetes mellitus with diabetic peripheral angiopathy without gangrene; I25.10 Atherosclerotic heart disease of native coronary artery without angina pectoris; E11.65 Type 2 diabetes mellitus with hyperglycemia; Z88.7 Allergy status to serum and vaccine; Z91.040 Latex allergy status; Z90.49 Acquired absence of other specified parts of digestive tract; Z90.710 Acquired absence of both cervix and uterus; Z98.61 Coronary angioplasty status; I25.2 Old myocardial infarction; Z80.3 Family history of malignant neoplasm of breast; Z80.42 Family history of malignant neoplasm of prostate; Z91.148 Patient's other noncompliance with medication regimen for other reason; Z71.6 Tobacco abuse counseling; Z80.8 Family history of malignant neoplasm of other organs or systems; Z91.128 Patient's intentional underdosing of medication regimen for other reason; E11.69 Type 2 diabetes mellitus with other specified complication
CPT/HCPCS: 10005; 36415; 71045; 72192; 73620; 73700; 73718; 77012; 80048; 80053; 80202; 80307; 81001; 82565; 82962; 83036; 83605; 83615; 84484; 85007; 85027; 85610; 85652; 85730; 86141; 87040; 87081; 87086; 93926; 93971; 99291; 99292; G0378; J1815; J2003; J2543; J3490

== ENCOUNTER 2025-04-05 12:16 | Inpatient (IN) | payer SELFPAY ==
[~2025-04-05] VITALS: Ht 165.1 cm; Wt 69.9 kg
[~2025-04-05 12:16] MED LIST changes: +AMLO1TAB22 PO; -ASPI1TAB20 PO; -PIPERACILLIN-TAZOB 3.375GM 100 ML IV SCH; -POTA8TAB38 PO
[2025-04-05 13:47] LABS: Hematocrit 45.8 % (36.0-46.0)
--- NOTE | 2025-04-05 13:47 | ED.PDOC ---
Musculoskeletal HPI Comments 65-year-old female presents to the ER with a chief complaint of pain to the 5th phalanges which is purple, discoloration and tenderness to touch. Patient reports she was discharged recently for pain to the same extremity, however, patient reports worsening pain to the 5th phalanges. Denies any new trauma no injury but has been unable to get adequate relief with the medications prescribed. The patient was admitted in the ER on 03/24/2025 onto 03/29/2025 for similar symptoms. See copied discharge note from last visit: stated Mrs. Cass Zhong is a 65-year-old female, with past medical history of hyperlipidemia, hypertension, OR with PTCA (01/2025) and leukemia (patient does not remember the type). The patient presented to the ED with history of 3 weeks of right 5th toe pain, 7/10, sharp-like, continue, no radiation. The patient reports she hit her right 5th toe against her boyfriend's boot, at that time she presented sudden sharp pain 10/10 and discomfort but denies laceration, bleeding or deformity of the toe; the pain is worsen with movement of the right foot and when she bear weight on it, Improve with rest. The patient reports she started noticing her right 5th toe change in color, from red to purple-keily, with worsen pain and swelling, this prompted her visit to the ED. Also, reports that her extremities are bluish in color when it gets cold. The patient denies other trauma, fever, chills, abdominal pain, chest pain, headache or other symptoms. In the ED, Vs were stable. The patient was admitted for further management. Admission course: 03/25/25, the patient was evaluated at bedside. VS, labs and chart was reviewed. WBC: 31.4x10e3/uL. Hb: 15.1mg/dl a peripheral blood smear was order to rule out acute leukemia. Right Lower Extremity Arterial Duplex: No hemodynamically significant stenosis based on peak systolic velocity criteria. Right Foot xray: 1. No acute fracture or dislocation. Sclerosis in the 5th proximal phalanx with adjacent soft tissue swelling. This could be related to chronic osteomyelitis in the appropriate clinical setting. MRI is recomm ended.[place] doppler: No right lower extremity deep venous thrombosis. Ct scan: No acute fracture or dislocation. No CT evidence of osteomyelitis. Soft tissue swelling lateral forefoot. Right foot MRI: No MR evidence of osteomyelitis. Small areas of pressure related change and/or infection along the plantar surface of the forefoot and great toe. The patient reports pain in her right 5th toe has improved today with the pain medications also, she reports left heel pain due to a open wound, an xray of the left foot was ordered. The patient continues with IV antibiotics: Zocyn and vancomicyn. We will continue following the progress of this patient. On 03/26/25- patient was seen at bedside today. Patient mentions she still has the pain in both her feet. Smear was evaluated, no blasts were seen. White count today was 27.7. We increased the dose of Lantus from 20 to 25. Pending podiatry consult and bone marrow biopsy by IR. On 03/27/25, the patient was re-evaluated and examined at the bedside. VS, labs and chart was reviewed. WBC are trending down 24.9. The patient report improvement on right and left foot. Peripheral blood smear did no showed blast. Podiatric consult is pending. The patient reports the pain has improvement with medication to /10. Bone marrow biopsy by IR is still pending. We will continue following up with this patient progress. On 03/28/25, the patient has been re-a ssessed and examined at bedside. VS, labs and chart was reviewed. WBC trending down. Bone marrow biopsy was performed today. Podiatry consult was completed, Dr. Tyler recommended Right foot observation and elevation of the extremity to improve healing. The patient reports feeling better, no new complaints today. We will follow up the progress of this patient. On 03/29/25, the patient has been re-evaluated and examined at bedside. VS, labs and chart was reviewed. WBC trending down. Bone marrow biopsy was performed 03/28/25. Podiatry consult was completed, Dr. Tyler recommended Right foot observation and elevation or the right foot to improve healing, he will f/u as outpatient. The patient reports feeling better, no new complaints today. The patient will be discharge today, th bone marrow results will be discussed with Dr. Walters as an out patient. The patient will f/u with PCP, Podiatry and oncologist in 1 week. Pain medication was sent to the pharmacy. Denies any other symptoms at this time. Chief Complaint: Lower Extremity Time Seen by MD: 13:35 Primary Care Provider: AZAEL FARLEY Reviewed Notes: Nurses Notes, Medications, Allergies Allergies: Coded Allergies: Tetanus Toxoid (Verified Allergy, Unknown, 03/25/15) Uncoded Allergies: LATEX BANDAIDS (Allergy, Unknown, 03/25/15) Home Meds Active Scripts Ibuprofen Micronized (Ibuprofen) 400 Mg Tab, 400 MG PO TID for 5 Days, #15 TAB [facility]25 Clotrimazole Vaginal (3 DAY VAGINAL) 2 % Cre, 2 % [place] DAILY for 3 Days, #1 CRE [facility] 04/[facility]/25 Cefdinir (Cefdinir) 300 Mg Cap, 1 CAP PO BID for 7 Days, #14 CAP [facility] 04/09/25 Spironolactone (Spironolactone) 25 Mg Tab, 12.5 TAB PO DAILY for 30 Days, #15 TAB 3 Ref[facility] 04/09/25 Metoprolol Succinate (Metoprolol Succinate Er) 25 Mg Tab, 1 TAB PO DAILY for 30 Days, #30 TAB 3 [facility] 04/09/25 Sacubitril-Valsartan (Entresto 24-26 mg) 1 Tab Tab, 0.5 TAB PO DAILY for 30 Day s, #15 TAB 3 [facility] 04/09/25 Insulin Glargine (Lantus Solostar) 100 Unit/Ml Inj, 15 UNIT SC HS for 30 Days, #7 INJ [facility] 04/09/25 Atorvastatin Calcium (ATORVASTATIN CALCIUM) 80 Mg Tab, 1 TAB PO HS, #30 TAB 3 Refills Prov:[facility] 04/09/25 Ticagrelor Base (BRILINTA) 90 Mg Tab, 90 MG PO BID for 30 Days, #60 TAB 3 [facility] 04/09/25 Aspirin (Aspirin Low Dose) 81 Mg Chw, 1 TAB PO DAILY for 30 Days, #30 TAB 3 [facility] 04/09/25 Insulin Lispro (Human) (Humalog) 100 Unit/Ml Inj, 10 UNITS SC AC for 30 Days, #5 INJ Prov:MACRINA STEPHENS RESIDENT 02/23/25 Insulin Glargine (Lantus) 100 Unit/Ml Inj, 24 UNITS SC QAM for 30 Days, #5 INJ 3 Refills Prov:MACRINA STEPHENS RESIDENT 02/23/25 Furosemide (Lasix) 20 Mg Tb, 1 TAB PO DAILY for 30 Days, #30 TAB 1 Refill Prov:NOMI DUNCAN NP 02/23/25 Sacubitril-Valsartan (Entresto 24-26 mg) 1 Tab Tab, 0.5 TAB PO BID for 30 Days, #30 TAB 2 Refills Prov:NOMI DUNCAN NP 02/23/25 Ticagrelor Base (BRILINTA) 90 Mg Tab, 90 MG PO BID for 30 Days, #60 TAB 2 Refills Prov:NOMI DUNCAN NP 02/23/25 Reported Medications Aspirin (Aspirin) 81 Mg Chw, 1 TAB PO DAILY for 30 Days, #30 02/20/25 Metoprolol Succinate (Toprol Xl) 25 Mg Tab, 1 TAB PO DAILY, #30 TAB 5 Refills 02/20/25 Glipizide (Glipizide) 10 Mg Tab, 10 MG PO BIDWM for 30 Days, MG 02/20/25 Discontinued Reported Medications Atorvastatin Calcium (ATORVASTATIN CALCIUM) 40 Mg Tab, 1 TAB PO DAILY for 30 Days, #30 04/07/25 Amlodipine Besylate (Amlodipine Besylate) 5 Mg Tab, 1 TAB PO DAILY 03/24/25 Discontinued Scripts Empagliflozin (Jardiance) 10 Mg Tab, 10 MG PO DAILY for 30 Days, #30 TAB 3 Refills Prov:NOMI DUNCAN [employer] 02/23/25 Information Source: Patient Mode of Arrival: Ambulatory Location: Right Extremity Location: Little Toe Timing: Came on: Gradually Prehospital treatment: None Severity: Moderate Able to Move Extremity: No Bear Weight: Limited Pain: Moderate Hand Dominance: Right Mechanism: Spontaneous Circumstances: Spontaneous Onset of Symptoms: Spontaneous Symptoms: Swelling, Pain DVT Risk Factors: NONE Associated signs and symptoms: Foot pain Past Medical History PAST MEDICAL HISTORY: DM, High Lipids, HTN Surgical History: Appendectomy, Hysterectomy, PTCA, Tonsillectomy 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 WORKER History Family History Family History: Reviewed,noncontributory to illness, Unknown Social History Smoker: Cigarettes Alcohol: Denies ETOH Use Drugs: Denies Drug Use Lives In: Home Constitutional: denies: chills, diaphoresis, fatigue, fever, malaise, sweats, weakness, others EENTM: denies: blurred vision, double vision, ear bleeding, ear discharge, ear drainage, ear pain, ear ringing, eye pain, eye redness, hearing loss, mouth pain, mouth swelling, nasal discharge, nose bleeding, nose congestion, nose pain, photophobia, tearing, throat pain, throat swelling, voice changes, others Respiratory: denies: cough, hemoptysis, orthopnea, SOB at rest, shortness of breath, SOB with excertion, stridor, wheezing, others Cardiovascular: denies: chest pain, dizzy spells, diaphoresis, Dyspnea on exertion, edema, irregular heart beat, left arm pain, lightheadedness, palpitations, PND, syncope, others Gastrointestinal: denies: abdomen distended, abdominal pain, blood streaked bowels, constipated, diarrhea, dysphagia, difficulty swallowing, hematemesis, melena, nausea, poor appetite, poor fluid intake, rectal bleeding, rectal pain, vomiting, others Genitourinary: denies: abnormal vagina bleeding, burning, dyspareunia, dysuria, flank pain, frequency, hematuria, incontinence, pain, , vagina discharge, urgency, others Neurological: denies: dizziness, fainting, headache, left sided numbness, left sided weakness, numbness, paresthesia, pre-existing deficit, right sided numbness, right sided weakness, seizure, speech problems, tingling, tremors, weakness, others Musculoskeletal: reports: others (Fifth phalanges is purple, discolored and tender to touch); denies: back pain, gout, joint pain, joint swelling, muscle pain, muscle stiffness, neck pain Integumetry: denies: bruises, change in color, change in hair/nails, dryness, laceration, lesions, lumps, rash, wounds, others Allergic/Immunocompromised: denies: Difficulty Healing, Frequent Infections, Hives, Itching, others Hematologic/Lymphatic: denies: anemia, blood clots, easy bleeding, easy bruising, swollen glands, others Endocrine: denies: excessive hunger, excessive sweating, excessive thirst, excessive urination, flushing, intolerance to cold, intolerance to heat, unexplained weight gain, unexplained weight loss, others Psychiatric: denies: anxiety, bipolar disorder, depression, hopeless, panic disorder, schizophrenia, sleepless, suicidal, others All Other Systems: Reviewed and Negative Physical Exam Exam Comments Fifth phalanges is purple, discolored and tender to touch. DP 2+ neurovascular sensation is intact General Appearance: No Apparent Distress, Normal HEENT: Normal ENT Inspection, Pharynx Normal, TMs Normal Neck: Full Range of Motion, Non-Tender, Normal, Normal Inspection Respiratory: Chest Non-Tender, Lungs Clear, No Accessory Muscle Use, No Respiratory Distress, Normal Breath Sounds Cardiovascular: No Edema, No JVD, No Murmur, No Gallop, Normal Peripheral Pulses, Regular Rate/Rhythm Breast Exam: Deferred Gastrointestinal: No Organomegaly, Non Tender, No Pulsatile Mass, Normal Bowel Sounds, Soft Genitalia: Deferred Pelvic: Deferred Rectal: Deferred Extremities: No calf tenderness, Normal capillary refill, Normal inspection, Normal range of motion, Non-tender, No pedal edema Musculoskeletal : Apperance: Normal Neurologic: Alert, overcaster II-XII nml as Tested, No Motor Deficits, Normal Affect, Normal Mood, No Sensory Deficits Cerebellar Function: Normal Reflexes: Normal Skin: Dry, Normal Color, Warm Lymphatic: No Adenopathy Was a procedure done? Was a procedure done?: No Differential Diagnosis EXT Differential Diagnosis: Cellulitis, Fracture, Sprain, Dislocation, Arthritis X-Ray, Labs, Meds, VS Vital Signs Date Time Temp Pulse Resp B/P (MAP) Pulse Ox O2 Delivery O2 Flow Rate FiO2 04/05/25 19:00 99 15 126/61 (82) 94 04/05/25 19:00 87 19 94 Room Air* 0 21 04/05/25 18:00 95 15 165/65 (98) 95 04/05/25 17:00 87 15 140/80 (100) 95 04/05/25 16:00 82 19 105/84 (91) 91 04/05/25 15:10 87 19 94 Room Air* 0 21 04/05/25 15:10 98.2 87 19 137/71 (93) 94 98.2 04/05/25 14:05 83 16 95 Room Air 04/05/25 14:05 97.9 83 16 107/66 (80) 95 97.9 04/05/25 12:19 97.4 88 18 132/83 95 97.4 Lab Test 04/05/25 16:16 04/05/25 14:28 04/05/25 13:22 Range/Units Lactic Acid Level 3.2 *H 2.4 *H 0.4-2.0 mmol/L White Blood Count 30.3 *H 4.4-10.8 10^3/uL Red Blood Count 5.40 H 4.0-5.20 10^6/uL Hemoglobin 15.3 12.2-16.2 g/dL Hematocrit 45.8 36.0-46.0 % Mean Corpuscular Volume 84.7 80.0-100.0 fL Mean Corpuscular Hemoglobin 28.2 28.0-32.0 pg Mean Corpuscular Hemoglobin Concent 33.3 32.0-36.0 g/dL Red Cell Distribution Width 15.7 H 11.8-14.3 % Platelet Count 398 140-450 10^3/uL Mean Platelet Volume 7.6 6.9-10.8 fL Neutrophils (%) (Auto) 37.0-80.0 % Lymphocytes (%) (Auto) 10.0-50.0 % Monocytes (%) (Auto) 0.0-12.0 % Basophils (%) (Auto) 0.0-2.0 % Neutrophils # (Auto) 1.6-8.6 10 ^3/uL Lymphocytes # (Auto) 0.4-5.4 10 ^3/uL Monocytes # (Auto) 0-1.3 10 ^3/uL Differential Total Cells Counted 100.0 100 Neutrophils % (Manual) 15 L 37.0-80.0 Band Neutrophils % (Manual) 1 Lymphocytes % (Manual) 81 H 10.0-50.0 Monocytes % (Manual) 2 0-12 Eosinophils % (Manual) 1 0-7 Basophils % (Manual) 0 0.0-2.0 Metamyelocytes % (manual) 0 Myelocytes % (Manual) 0 Promyelocytes % (Manual) 0 Blast Cells % (Manual) 0 Reactive Lymphocytes 0 Platelet Estimate Adequate Erythrocyte Sedimentation Rate 16 0-20 mm/hr Sodium Level 137 136-145 mmol/L Potassium Level 5.0 3.5-5.1 mmol/L Chloride Level 102 98-107 mmol/L Carbon Dioxide Level 28 20-31 mmol/L Anion Gap 7 5-15 Blood Urea Nitrogen 14 9-23 mg/dL Creatinine 1.02 0.550-1.02 mg/dL Glomerular Filtration Rate Calc 61 >90 mL/min BUN/Creatinine Ratio 13.7 10.0-20.0 Serum Glucose 318 H 74-106 mg/dL Calcium Level 9.7 8.7-10.4 mg/dL Magnesium Level 2.1 1.6-2.6 mg/dL Total Bilirubin 0.3 0.2-1.0 mg/dL Direct Bilirubin < 0.1 <0.3 mg/dL Aspartate Amino Transferase (AST) 17 13-40 U/L Alanine Aminotransferase (ALT) 21 7-40 U/L Alkaline Phosphatase 227 H 46-116 U/L C-Reactive Protein High Sensitivity 0.75 <1.0 mg/dL B-Type Natriuretic Peptide 264.59 0-100 pg/mL Total Protein 7.7 5.7-8.2 g/dL Albumin 4.7 3.2-4.8 g/dL Microbiology Date/Time Source Procedure Growth Status 04/05/25 14:44 Blood Blood Culture - Final NO GROWTH AFTER 5 DAYS OF INCUBATION. Complete 04/05/25 14:28 Blood Blood Culture - Final NO GROWTH AFTER 5 DAYS OF INCUBATION. Complete 04/05/25 12:00 Voided Urine Urine Culture - Final Complete X-Ray, Labs, Meds, VS Comment 65-year-old female presents to the ER with a chief complaint of pain to the 5th phalanges which is purple, discoloration and tenderness to touch. Patient arrives alert and oriented, ABC's intact, afebrile, vital signs stable, saturating well in room air Peripheral IV insertion+ labs were ordered. CBC was ordered to exclude anemia, blood loss, or infection. BMP was ordered to exclude electrolyte abnormalities, renal failure, dehydr ation, hyperglycemia Diagnostic imaging ordered by me and results interpreted by radiology : X-ray of right foot CBC at 30.3 Patients work up was remarkable for intractable right foot pain located to the 5th phalanx The patient will be started on empiric antibiotics patient be admitted for further workup The patient's workup reveals that the patient needs further evaluation and/or treatment for the above medical conditions. Patient verbalized understanding of the above and is awaiting further evaluation by the admitting service. Time of 1ST Reevaluation: 14:05 Reevaluation 1ST: Unchanged Patient Education/Counseling: Diagnosis, Treatment, Prognosis Family Education/Counseling: No Family Present Sepsis Sepsis Reasesment Focused Exam Orders: Laboratory Tests 04/05/25 16:16: Lactic Acid Level 3.2 Departure 1 Departure Time of Disposition: 14:41 Impression: Primary Impression: Intractable pain Additional Impression: Sepsis Qualified Codes: A41.9 - Sepsis, unspecified organism Disposition: ADMITTED INPATIENT Condition: Serious e-Prescriptions Ibuprofen Micronized (Ibuprofen) 400 Mg Tab 400 MG PO TID for 5 Days, #15 TAB Prov: SUHA ROLDAN 04/09/25 Clotrimazole Vaginal (3 DAY VAGINAL) 2 % Cre 2 % [place] DAILY for 3 Days, #1 CRE Prov: FIORDALIZA ROLDANRA 04/09/25 Cefdinir (Cefdinir) 300 Mg Cap 1 CAP PO BID for 7 Days, #14 CAP Prov: FIORDALIZA ROLDANRA 04/09/25 Spironolactone (Spironolactone) 25 Mg Tab 12.5 TAB PO DAILY for 30 Days, #15 TAB 3 Refills Prov: DOROTHY ROLDANHIRA 04/09/25 Metoprolol Succinate (Metoprolol Succinate Er) 25 Mg Tab 1 TAB PO DAILY for 30 Days, #30 TAB 3 Refills Prov: DOROTHY ROLDANHIRA 04/09/25 Sacubitril-Valsartan (Entresto 24-26 mg) 1 Tab Tab 0.5 TAB PO DAILY for 30 Days, #15 TAB 3 Refills Prov: FIORDALIZA ROLDANRA 04/09/25 Insulin Glargine (Lantus Solostar) 100 Unit/Ml Inj 15 UNIT SC HS for 30 Days, #7 INJ Prov: DOROTYH ROLDANHIRA 04/09/25 Atorvastatin Calcium (ATORVASTATIN CALCIUM) 80 Mg Tab 1 TAB PO HS, #30 TAB 3 Refills Prov: DOROTHY ROLDANHIRA 04/09/25 Ticagrelor Base (BRILINTA) 90 Mg Tab 90 MG PO BID for 30 Days, #60 TAB 3 [facility] 04/09/25 Aspirin (Aspirin Low Dose) 81 Mg Chw 1 TAB PO DAILY for 30 Days, #30 TAB 3 Refills Prov: SUHA ROLDAN RESIDENT 04/09/25 Critical Care Note Critical Care Time?: No Stability Stability form required: No Heart Score Heart Score: Heart Score Response (Comments) Value History N/A 0 EKG N/A 0 Age N/A 0 Risk Factors N/A 0 Troponin N/A 0 Total 0 I personally scribed for DEWEY CARMONA NP ([email or web address]) on 04/05/25 at 13:47. Electronically submitted by Juan Parish ([email or web address]). DEWEY CARMONA NP Apr 05, 2025 13:47
[2025-04-05 13:48] LABS: Hemoglobin 15.3 g/dL (12.2-16.2); Mean Corpuscular Hemoglobin 28.2 pg (28.0-32.0); Mean Corpuscular Volume 84.7 fL (80.0-100.0)
[2025-04-05 13:50] LABS: Chloride 102 mmol/L (98-107); Potassium 5.0 mmol/L (3.5-5.1); Sodium 137 mmol/L (136-145)
[2025-04-05 13:51] LABS: Anion Gap 7 (5-15); Carbon Dioxide 28 mmol/L (20-31)
[2025-04-05 13:52] LABS: Calcium 9.7 mg/dL (8.7-10.4)
[2025-04-05 13:56] LABS: BUN/Creatinine Ratio 13.7 (10.0-20.0); Blood Urea Nitrogen 14 mg/dL (9-23)
[2025-04-05 13:57] LABS: Glucose 318 mg/dL (74-106)
[2025-04-05] MEDS ORDERED: VANCOMYCIN PER PHARMACY 0 MG IV SCH (14:00)
--- NOTE | 2025-04-05 14:06 | DVH ---
CLINICAL INDICATION: Pain to the 5th phalanx TECHNIQUE: 2 radiographic views of the right foot were obtained. Comparison: XY L FOOT 2 VIEW XRAY on DOS: 03/25/25, XY R FOOT 2 VIEW XRAY on DOS: 03/24/25, XY R FOOT 3 VIEW XRAY on DOS: 02/20/25, XY R FOOT 3 VIEW XRAY on DOS: 02/17/25 FINDINGS/IMPRESSION: There is no evidence of acute fracture or dislocation. The visualized joint space is well maintained. The alignment is anatomical. There is no radiopaque foreign body.
[2025-04-05 14:30] LABS: Total Cells Counted 100.0 (100)
[2025-04-05] MEDS: SODIUM CHLORIDE 0.9% 1,000 ML IV ONE ×3 (14:31→22:00)
--- NOTE | 2025-04-05 14:32 | DVH ---
CHEST RADIOGRAPH Indication: R/o PNA Technique: XY CHEST XRAY 1 VIEW Comparison: None FINDINGS: The cardiac silhouette is unremarkable. The lungs demonstrate right lower lobe atelectasis. The pulmonary vasculature is unremarkable. There is no pleural effusion. There is no pneumothorax. Aortic atherosclerotic disease. IMPRESSION: Right lower lobe atelectasis.
[2025-04-05] MEDS: VANCOMYCIN 1.5GM/250ML 250 ML IV ONE (14:46)
[2025-04-05 15:09] LABS: Lactic Acid w/Reflex 2.4 mmol/L (0.4-2.0)
[2025-04-05 15:10] VITALS: PULSE 87; RESP 19; O2SAT 94
[2025-04-05] MEDS: CEFEPIME 1GM/50ML 50 ML IV SCH (18:49)
[2025-04-05 19:00] VITALS: PULSE 87; RESP 19; O2SAT 94
[2025-04-05] MEDS ORDERED: DEXTROSE (50%) 50ML SYRG IV PRN (21:15)
--- NOTE | 2025-04-05 21:42 | DVHHPRES ---
History of Present Illness Resident Creating Document: AMPARO CAMACHO History of Present Illness This is a 65-year-old female, with past medical history of hyperlipidemia, hypertension, TN with PTCA (01/2025) and leukemia (patient does not remember the type) and diabetes. The patient presented to the ED with history of 2 month of right 5th toe pain, 10/10, sharp-like, continue, no radiation. The pain is worsen with movement of the right foot and when she bear weight on it, improve with rest. The patient reports she started noticing her right 5th toe change in color, from red to purple-keily, with worsen pain and swelling, this prompted her visit to the ED. Also, reports that her extremities are bluish in color when it gets cold. The patient denies other trauma, fever, chills, abdominal pain, chest pain, headache or other symptoms. The patient was admitted in the ER on 03/24/2025 onto 03/29/2025 for similar symptoms. On evaluation in the ED, patient is afebrile, blood pressure is 165/65 mmHg. Initial labs show WBC 30.3, serum glucose 318, lactic acid 2.4. Foot X-Ray shows no evidence of acute fracture or dislocation and the visualized joint space is well maintained. The patient was placed NPO, started on heparin drip, IV antibiotics and IV fluids. Patient is admitted for further evaluation and management. Past Medical History DM, High Lipids, HTN, leukemia Past Surgical History Appendectomy, Hysterectomy, PTCA, Tonsillectomy Family History: None Past Social History Smoker: Cigarettes, > 50 years. Alcohol: Occasionally. Drugs: Methamphetamine, marijuana, > 6 years, quit 2 years ago. Review of Systems Review of Systems Eyes: No Pain, No Vision change, No Conjunctivae inflammation, No Eyelid inflammation, No Other, No Redness ENT: No Ear pain, No Ear discharge, No Nose pain, No Nose discharge, No Nose congestion, No Mouth pain, No Mouth swelling, No Throat pain, No Throat swelling, No Other Cardiovascular: No Chest Pain, No Palpitations, No Orthopnea, No Paroxysmal No Dyspnea, No Edema, No Lt Headedness, No Other Respiratory: No Cough, No Dry, No Shortness of breath, No SOB with exertion, No Wheezing, No Hemoptysis, No Pleuritic Pain, No Sputum, No Other Gastrointestinal: No Nausea, No Vomiting, No Abdominal Pain, No Diarrhea, No Constipation, No Melena, No Hematochezia, No Other Genitourinary: No Dysuria, No Frequency, No Incontinence, No Hematuria, No Retention, No Other Musculoskeletal: No other, No neck pain, No shoulder pain, No arm pain, No back pain, No hand pain, No leg pain, No foot pain Skin: No Rash, No Lesions, No Jaundice, No Bruising, No Other Allergies: Coded Allergies: Tetanus Toxoid (Verified Allergy, Unknown, 03/25/15) Uncoded Allergies: LATEX BANDAIDS (Allergy, Unknown, 03/25/15) Medications Current Medications Medications Dose Ordered Sig/Scott Route Start Time Stop Time Status Last Admin Dose Admin Cefepime HCl 50 ml @ 12.5 mls/hr Q8HR IV 04/05/25 14:00 04/05/25 18:49 12.5 MLS/HR Vancomycin HCl 0 ml @ 0 mls/hr PER PHARMACY IV 04/05/25 14:00 Exam Vital Signs Vital Signs Date Time Temp Pulse Resp B/P (MAP) Pulse Ox O2 Delivery O2 Flow Rate FiO2 04/05/25 18:00 95 15 165/65 (98) 95 04/05/25 15:10 Room Air* 0 21 04/05/25 15:10 98.2 98.2 Exam General Appearance: Cooperative. Well developed. Well nourished. NAD Head Exam: Normal inspection Neck Exam: Normal inspection. Non-tender. Normal alignment Pulmonary/Respiratory: Chest non-tender. Clear bilateral breath sounds, no crackles, no wheezing. Cardiovascular/Chest: Regular rate and rhythm. No murmurs. No JVD. Peripheral Pulses: 2+ Radial (R). 2+ Radial (L). 2+ Pedal (R). 2+ Pedal (L) Abdominal Exam: Normal bowel sounds. Soft. normal abdomen, no visible veins, Nontender. No hepatospenomegaly. No masses Ankle Exam: Negative ankle edema Lower extremities: Right foot 5th toe per pole dislocation, tender to touch. Normal ROM. Dorsalis pedis pulse 2+. Neurovascular sensation intact. Neuro/Mental Status: A&O x4. Coherent. Thoughts/Psych: Normal thought pattern. Appropriate mood and affect. Good judgement and insight Skin Exam: Normal inspection. Normal color. Warm. Dry Labs/Xrays Labs Test 04/05/25 16:16 04/05/25 13:22 Range/Units Lactic Acid Level 3.2 *H 0.4-2.0 mmol/L White Blood Count 30.3 *H 4.4-10.8 10^3/uL Red Blood Count 5.40 H 4.0-5.20 10^6/uL Hemoglobin 15.3 12.2-16.2 g/dL Hematocrit 45.8 36.0-46.0 % Mean Corpuscular Volume 84.7 80.0-100.0 fL Mean Corpuscular Hemoglobin 28.2 28.0-32.0 pg Mean Corpuscular Hemoglobin Concent 33.3 32.0-36.0 g/dL Red Cell Distribution Width 15.7 H 11.8-14.3 % Platelet Count 398 140-450 10^3/uL Mean Platelet Volume 7.6 6.9-10.8 fL Neutrophils (%) (Auto) 37.0-80.0 % Lymphocytes (%) (Auto) 10.0-50.0 % Monocytes (%) (Auto) 0.0-12.0 % Basophils (%) (Auto) 0.0-2.0 % Neutrophils # (Auto) 1.6-8.6 10 ^3/uL Lymphocytes # (Auto) 0.4-5.4 10 ^3/uL Monocytes # (Auto) 0-1.3 10 ^3/uL Differential Total Cells Counted 100.0 100 Neutrophils % (Manual) 15 L 37.0-80.0 Band Neutrophils % (Manual) 1 Lymphocytes % (Manual) 81 H 10.0-50.0 Monocytes % (Manual) 2 0-12 Eosinophils % (Manual) 1 0-7 Basophils % (Manual) 0 0.0-2.0 Metamyelocytes % (manual) 0 Myelocytes % (Manual) 0 Promyelocytes % (Manual) 0 Blast Cells % (Manual) 0 Reactive Lymphocytes 0 Platelet Estimate Adequate Erythrocyte Sedimentation Rate 16 0-20 mm/hr Sodium Level 137 136-145 mmol/L Potassium Level 5.0 3.5-5.1 mmol/L Chloride Level 102 98-107 mmol/L Carbon Dioxide Level 28 20-31 mmol/L Anion Gap 7 5-15 Blood Urea Nitrogen 14 9-23 mg/dL Creatinine 1.02 0.550-1.02 mg/dL Glomerular Filtration Rate Calc 61 >90 mL/min BUN/Creatinine Ratio 13.7 10.0-20.0 Serum Glucose 318 H 74-106 mg/dL Calcium Level 9.7 8.7-10.4 mg/dL C-Reactive Protein High Sensitivity 0.75 <1.0 mg/dL SEPSIS Sepsis Screen Date sepsis recognized/suspect: Apr 05, 2025 Time Sepsis recognized/suspect: 1514 Recent Procedure: No On Antibiotic Therapy: Yes Respiratory Rate >20: No Heart Rate >90: No Temp<36 C (96.8 F) or >38.3 C: No SBP <90 or MAP <65 mmHG: No New Acute Mental Status Change: No Is the patient on CPAP, BIPAP,: No Physician Orders Urinalysis (04/05/25 14:00) Blood Culture (04/05/25 14:00) Notify Md If Map <65 Or Bp<90 (04/05/25 14:00) If Map<65 Start Vasopressor (04/05/25 14:00) Vancomycin Per Pharmacy (04/05/25 14:00) Chest Xray 1 View (04/05/25 14:00) Creatinine (04/06/25 04:00) Vancomycin,Random (04/06/25 04:00) Admit (04/05/25 21:02) Allergies (04/05/25 21:02) Code Status (04/05/25 21:02) Hydrocodone-Acet 5/325mg Tab ([place] 5/32 (04/05/25 21:15) Complete Blood Count (04/06/25 04:00) Comprehensive Metabolic Panel (04/06/25 04:00) Cardiac Diet-2gna,Lofat,Lochol (04/06/25 Breakfast) Echo 2d Mode Cardiac Dop (04/05/25 21:02) Condition: Fair (04/05/25 21:02) Stat Ekg For Chest Pain (04/05/25 21:02) Notify Md Of Changes From Base (04/05/25 21:02) Highway Painter For 24 Hours (04/05/25 21:02) Emergency Dysrhythmia Protocol (04/05/25 21:02) Rhythm Strips Once Every Shift (04/05/25 21:02) Sodium Chloride 0.9% (04/05/25 21:15) *Podiatry Consult Jayson(Dvmg) (04/05/25 21:02) Drug Screen (04/05/25 21:02) Glucose Blood (Accu-Chek Comfort Curve T (04/05/25 22:00) Insulin R (Human) (Insulin R) (04/05/25 22:00) Insulin R (Human) (Insulin R) (04/06/25 07:00) Dextrose 50% Syringe (04/05/25 21:15) Hepatic Panel (04/05/25 21:02) Magnesium (04/05/25 21:02) Lactic Acid W/ Reflex Order (04/06/25 04:00) Cefepime 1 Gm (04/05/25 22:00) B-Type Natriuretic Peptide (04/05/25 21:02) Urine Bacterial Culture (04/05/25 21:02) Aspirin Tablet (04/05/25 21:15) Aspirin Tablet (04/06/25 10:00) Atorvastatin (Lipitor) (04/05/25 22:00) Amlodipine Tablet (Norvasc Tablet) (04/05/25 21:15) Amlodipine Tablet (Norvasc Tablet) (04/06/25 10:00) Electrocardigram (04/05/25 21:02) Bilat Low Ext Art Duplex (04/05/25 21:02) Npo After Midnight (04/05/25 21:02) Npo (Nothing By Mouth) Diet (04/06/25 Breakfast) Insulin Lantus (Glargine) (Lantus) (04/05/25 22:00) Vital Signs Date Time Temp Pulse Resp B/P (MAP) Pulse Ox O2 Delivery O2 Flow Rate FiO2 04/05/25 18:00 95 15 165/65 (98) 95 04/05/25 17:00 87 15 140/80 (100) 95 04/05/25 16:00 82 19 105/84 (91) 91 04/05/25 15:10 87 19 94 Room Air* 0 21 04/05/25 15:10 98.2 87 19 137/71 (93) 94 98.2 04/05/25 14:05 83 16 95 Room Air 04/05/25 14:05 97.9 83 16 107/66 (80) 95 97.9 Laboratory Tests Test 04/05/25 13:22 04/05/25 14:28 04/05/25 16:16 White Blood Count 30.3 10^3/uL (4.4-10.8) *H Lactic Acid Level 2.4 mmol/L (0.4-2.0) *H 3.2 mmol/L (0.4-2.0) *H Medications Medications Dose Ordered Sig/Scott Route Start Time Stop Time Status Last Admin Dose Admin Cefepime HCl 50 ml @ 12.5 mls/hr Q8HR IV 04/05/25 14:00 04/05/25 18:49 12.5 MLS/HR Sodium Chloride 1,000 ml @ 1,000 mls/hr Q1H ONCE IV 04/05/25 14:00 04/05/25 15:06 DC 04/05/25 14:31 1,000 MLS/HR Sodium Chloride 1,000 ml @ 1,000 mls/hr Q1H ONCE IV 04/05/25 17:15 04/05/25 18:14 DC 04/05/25 17:15 1,000 MLS/HR Vancomycin HCl 250 ml @ 200 mls/hr ONCE ONCE IV 04/05/25 14:30 04/05/25 15:44 DC 04/05/25 14:46 200 MLS/HR Assessment/Plan Assessment/Plan Blue toe syndrome Acute on chronic limb ischemia possible peripheral arterial disease ruled out osteomyelitis I spoke with vascular surgeon Dr. Tejada regarding concern for blue toe syndrome and the possibility of developing acute limb ischemia. The patient has been placed on a heparin drip, and we will order CT angiography with runoff to assess arterial flow. The patient will place NPO and vascular surgeon will evaluate the patient in the morning. CT angiography: Long segmental occlusion throughout of the left SFA. Moderate to high-grade short segmental atherosclerotic narrowing within the right distal common iliac artery. Bilateral Lower Extremity Arterial Duplex: No flow is seen within the right dorsalis pedis. No flow is seen within the left mid superficial femoral artery. Foot X-Ray: There is no evidence of acute fracture or dislocation. The visualized joint space is well maintained. Foot MR (03/24/25): No MR evidence of osteomyelitis. Small areas of pressure related change and/or infection along the plantar surface of the forefoot and g reat toe. Foot CT (03/24/25): No acute fracture or dislocation. No CT evidence of osteomyelitis. Soft tissue swelling lateral forefoot. Echocardiogram ordered EKG: Sinus rhythm. Abnormal lateral Q waves. Anterior infarct, recent. Vascular consult Podiatry consult NPO IV NS 100 MLS/HR one continue Heparin Drip/D5w IV 800 UNITS/HR pain management with [place] 1 TAB po q4h and Dilaudid 0.25 MG IV q4h prn Vancomycin IV per pharmacy Cefepime 1 GM IV q12h UA and UDS Blood culture and urine bacterial culture CAD with stent placement (01/2025) Atorvastain 80mg po daily Aspirin 81mg po daily Type 2 diabetes mellitus with hyperglycemia, uncontrolled Insulin lantus 15 units sc hs Moderate insulin SS Hypertension Amlodipine 10 mg PO daily Tobacco usage (<1 pack per day) Counseling about quitting smoking. Diet: NPO DVT prophylaxis: Heparin Drip/D5w IV 800 UNITS/HR Goals of care: Full code, discussed for >30 minutes on 04/05/25 Plan discussed with patient Plan discussed with Dr. Yip Plan discussed with: Patient My Orders Orders - AMPARO CAMACHO RESIDENT Procedure Category Date Status Time Admit ADMIT 04/05/25 Transmitted 21:02 Allergies ANAYA 04/05/25 In Process 21:02 Code Status CODE 04/05/25 Transmitted 21:02 Hydrocodone-Acet PHA 04/05/25 Logged 5/325mg Tab ([place] 21:15 Complete Blood Count LAB 04/06/25 Verified 04:00 Comprehensive LAB 04/06/25 Verified Metabolic Panel 04:00 Cardiac DIET 04/06/25 Transmitted Diet-2gna,Lofat,Lochol Breakfast Echo 2d Mode Cardiac US 04/05/25 Logged DOP 21:02 Condition: Fair ANAYA 04/05/25 In Process 21:02 Stat Ekg For Chest ANAYA 04/05/25 In Process Pain 21:02 Notify Md Of Changes ANAYA 04/05/25 In Process From Base 21:02 Highway Painter For ANAYA 04/05/25 In Process 24 Hours 21:02 Emergency Dysrhythmia ANAYA 04/05/25 In Process Protocol 21:02 Rhythm Strips Once ANAYA 04/05/25 In Process Every Shift 21:02 Sodium Chloride 0.9% PHA 04/05/25 Logged 21:15 *Podiatry Consult CONS 04/05/25 Transmitted Musson(Dvmg) 21:02 Drug Screen LAB 04/05/25 Transmitted 21:02 Glucose Blood PHA 04/05/25 Logged (Accu-Chek Comfort 22:00 Insulin R (Human) PHA 04/05/25 Logged (Insulin R) 22:00 Insulin R (Human) PHA 04/06/25 Logged (Insulin R) 07:00 Dextrose 50% Syringe PHA 04/05/25 Transmitted 21:15 Hepatic Panel LAB 04/05/25 Transmitted 21:02 Magnesium LAB 04/05/25 Transmitted 21:02 Lactic Acid W/ Reflex LAB 04/06/25 Verified Order 04:00 Cefepime 1 Gm PHA 04/05/25 Transmitted 22:00 B-Type Natriuretic LAB 04/05/25 Transmitted Peptide 21:02 Urine Bacterial ANI 04/05/25 Transmitted Culture 21:02 Aspirin Tablet PHA 04/05/25 Transmitted 21:15 Aspirin Tablet PHA 04/06/25 Transmitted 10:00 Atorvastatin (Lipitor) PHA 04/05/25 Transmitted 22:00 Amlodipine Tablet PHA 04/05/25 Transmitted (Norvasc Tablet) 21:15 Amlodipine Tablet PHA 04/06/25 Transmitted (Norvasc Tablet) 10:00 Electrocardigram EKG 04/05/25 Logged 21:02 Bilat Low Ext Art US 04/05/25 Logged Duplex 21:02 Npo After Midnight ANAYA 04/05/25 In Process 21:02 Npo (Nothing By DIET 04/06/25 Transmitted Mouth) Diet Breakfast Insulin Lantus PHA 04/05/25 Logged (Glargine) (Lantus) 22:00 Date of Service: Apr 05, 2025 Billing Provider: JAMIE YIP MD Common Visit Codes: 43917-BSTRQNB INP/OBS CARE (HIGH) Secondary Visit Codes: 24403-[id number] CARE PLAN 30 MINUTES AMPARO CAMACHO RESIDENT Apr 05, 2025 21:42 ROBINSON NORIEGA RESIDENT Apr 06, 2025 08:22
[2025-04-05] MEDS: MORPHINE SULFATE 4 MG/ML SYR/VIAL IV ONE (21:54)
[2025-04-05] MEDS: ACCU-CHEK COMFORT CURVE STRIP VI SCH (22:00)
[2025-04-05 22:12] LABS: Alanine Aminotransferase 21 U/L (7-40); Albumin 4.7 g/dL (3.2-4.8); Magnesium 2.1 mg/dL (1.6-2.6); Total Protein 7.7 g/dL (5.7-8.2)
[2025-04-05 22:18] LABS: Alkaline Phosphatase 227 U/L (46-116); Bilirubin, Direct < 0.1 mg/dL (<0.3); Bilirubin, Total 0.3 mg/dL (0.2-1.0)
[2025-04-05 22:58] LABS: INR 0.99 (0.9-1.15); Partial Thromboplastin Time 24.5 SEC (24.5-34.5); Prothrombin Time 10.5 sec (9.3-11.8)
[2025-04-05] MEDS: InsuLIN REG 1unit/0.01ml Soln (100units/ml) SC SCH (23:08)
[2025-04-05] MEDS: ATORVASTATIN 20 MG TAB PO SCH (23:13)
[2025-04-05] MEDS: INSULIN LANTUS (GLARGINE) 1 /0.01ml (100units/ml) SC SCH (23:19)
--- NOTE | 2025-04-05 23:23 | DVH ---
Bilateral Lower Extremity Arterial Duplex Clinical History: decrease pedal pulses Comparison: US RT LOW EXT ART DUPLEX on DOS: 03/24/25, US BILAT LOW EXT ART DUPLEX on DOS: 02/20/25 Technique: Duplex Doppler evaluation including color Doppler and spectral/pulsed waveform analysis of the lower extremity arteries was performed. Findings: RIGHT: Peak systolic velocities are as follows: SKIAGRAPHER 132 cm/s Deep femoral 53 cm/s SFA proximal 74 cm/s SFA mid-portion 73 cm/s SFA distal 183 cm/s Popliteal 69 cm/s Posterior tibial 65 cm/s Anterior tibial 22 cm/s Dorsalis pedis 0 cm/s The waveforms are monophasic with diastolic flow however no flow is seen within the dorsalis pedis. LEFT: Peak systolic velocities are as follows: SKIAGRAPHER 122 cm/s Deep femoral 112 cm/s SFA proximal 42 cm/s SFA mid-portion 0 cm/s SFA distal 70 cm/s Popliteal 54 cm/s Posterior tibial 35 cm/s Anterior tibial 28 cm/s Dorsalis pedis 43 cm/s The waveforms are monophasic with diastolic flow downstream to the mid SFA. IMPRESSION: No flow is seen within the right dorsalis pedis. No flow is seen within the left mid SFA. REFERENCE VALUES, [facility] ([facility]) vascular Imaging Lab Criteria: Peak systolic velocity ranges (in cm/sec) are as follows: <150 cm/s - <20 % stenosis 150-200 cm/s - 20-49% stenosis 200-300 cm/s - 50-75% stenosis >300 cm/s -> 75% stenosis
[2025-04-06] VITALS (14 sets, daily range): BP systolic 100–150; BP diastolic 55–87; PULSE 67–83; RESP 15–19; TEMP 97–98.3; O2SAT 89–99
[2025-04-06] MEDS: HEPARIN SODIUM (PORCINE) 5000 UNITS/ML 1ML VIAL IV ONE ×2 (00:39→11:16)
[2025-04-06] MEDS: HEPARIN DRIP/D5W 100UNITS/ML 250 ML IV SCH ×2 (01:11→10:00)
[2025-04-06] MEDS: IOHEXOL 350 MG/ML 100ML IJ ONE (01:31)
[2025-04-06] MEDS: CEFEPIME 1GM/50ML 50 ML IV SCH (01:54)
--- NOTE | 2025-04-06 01:58 | DVH ---
Examination: CT ANGIO EXTREMITY BILAT CLINICAL HISTORY: blue toe syndrome, r/o arterial emboli Comparison: None Technique: Using helical technique, CT data from the lower abdomen through the toes was obtained during rapid IV contrast infusion. The examination was timed to the arterial system to generate a CT angiographic study. 3D images were generated at an independent work station. Dose reduction techniques included automated exposure control. Radiation Dose Information: CT Dose: CTDI volume is 25.35 mGy. Dose-length product is 2878.49 mGy*cm Contrast: 100 cc Omnipaque 350. Findings: Vascular: On the right there is moderate to high-grade short segmental stenosis within a distal common iliac. Mild atherosclerotic narrowing throughout the external iliac and common femoral. SFA is patent. Popliteal is widely patent. 3-vessel runoff. On the left there is mild irregular atherosclerotic luminal narrowing throughout the common and external iliac. Common femoral is patent. SFA is occluded from its origin. Reopacification of the distal most SFA. Mild atherosclerotic luminal narrowing throughout the popliteal. Faint 3-vessel runoff. Nonvascular: Bladder: Unremarkable. GI System: Diffuse colonic diverticulosis. Lymph nodes: No lymphadenopathy. Peritoneal cavity and surface: No free fluid. No pneumoperitoneum. Soft Tissues: Normal. Reproductive Organs: Normal. Bones: No acute fracture or aggressive osseous lesion. Impression: Long segmental occlusion throughout of the left SFA. Moderate to high-grade short segmental atherosclerotic narrowing within the right distal common iliac artery.
--- NOTE | 2025-04-06 02:02 | ECG ---
[facility] Test Date: 2025-04-05 Test Time: 23:57:59 Pat Name: SUMEET BARRIGA Department: [facility] ED Patient ID: [facility]-[id number] Room: 0297 Gender: F Recreation Director: SHARMILA : 1960 Requested By: AMPARO YOU Order Number: [id number] Reading MD: Roberto Giles Measurements Intervals [place] Rate: 81 P: 62 WI: 159 QRS: 51 QRSD: 92 T: 157 QT: 369 QTc: 429 Interpretive Statements Sinus rhythm Abnormal lateral Q waves Anterior infarct, recent Electronically Signed On 04-11-2025 10:07:18 PST by Roberto Giles Please click the below link to view image of tracing.
[2025-04-06] MEDS: HYDROmorphone HCL 2 MG/ML VL/or syr IV PRN (02:51)
[2025-04-06] MEDS: InsuLIN REG 1unit/0.01ml Soln (100units/ml) SC SCH (06:39)
[2025-04-06 07:12] LABS: Hematocrit 44.4 % (36.0-46.0); Hemoglobin 14.2 g/dL (12.2-16.2); Mean Corpuscular Hemoglobin 27.8 pg (28.0-32.0); Mean Corpuscular Volume 86.9 fL (80.0-100.0)
--- NOTE | 2025-04-06 07:32 | DVHCONRES ---
Date Seen: Apr 06, 2025 Resident Creating Document: BIBIANA MARINA Jr., MD Referring Physician er Reason for Consultation right 5th toe ischemia History of Present Illness This is a 65-year-old female, with past medical history of hyperlipidemia, hypertension, CT with PTCA (01/2025) and leukemia (patient does not remember the type) and diabetes. The patient presented to the ED with history of 2 month of right 5th toe pain, 10/10, sharp-like, continue, no radiation. The pain is worsen with movement of the right foot and when she bear weight on it, improve with rest. The patient reports she started noticing her right 5th toe change in color, from red to purple-keily, with worsen pain and swelling, this prompted her visit to the ED. Also, reports that her extremities are bluish in color when it gets cold. The patient denies other trauma, fever, chills, abdominal pain, chest pain, headache or other symptoms. The patient was admitted in the ER on 03/24/2025 onto 03/29/2025 for similar symptoms. On evaluation in the ED, patient is afebrile, blood pressure is 165/65 mmHg. Initial labs show WBC 30.3, serum glucose 318, lactic acid 2.4. Foot X-Ray shows no evidence of acute fracture or dislocation and the visualized joint space is well maintained. Patient states pain has started initially back in January has not resolved. She does have short distance claudication of the left leg however she has rest pain in the right foot. She does smoke. Past Medical History hyperlipidemia, hypertension, CT with PTCA (01/2025) and leukemia (patient does not remember the type) and diabetes. Past Surgical History Recent coronary PTCA Family History: Malignant melanoma G8 FATHER, Onset:60 years & older Malignant neoplasm of breast G8 MOTHER, Onset:60 years & older Prostate carcinoma G8 FATHER, Onset:60 years & older Social History Current smoker Allergies: Coded Allergies: Tetanus Toxoid (Verified Allergy, Unknown, 03/25/15) Uncoded Allergies: LATEX BANDAIDS (Allergy, Unknown, 03/25/15) Home Meds Active Scripts Insulin Lispro (Human) (Humalog) 100 Unit/Ml Inj, 10 UNITS SC AC for 30 Days, #5 INJ Prov:MACRINA STEPHENS RESIDENT 02/23/25 Insulin Glargine (Lantus) 100 Unit/Ml Inj, 24 UNITS SC QAM for 30 Days, #5 INJ 3 Refills Prov:MACRINA STEPHENS RESIDENT 02/23/25 Furosemide (Lasix) 20 Mg Tb, 1 TAB PO DAILY for 30 Days, #30 TAB 1 Refill Prov:NOMI DUNCAN DRILLING SUPERINTENDENT 02/23/25 Sacubitril-Valsartan (Entresto 24-26 mg) 1 Tab Tab, 0.5 TAB PO BID for 30 Days, #30 TAB 2 Refills Prov:NOMI DUNCAN DRILLING SUPERINTENDENT 02/23/25 Ticagrelor Base (BRILINTA) 90 Mg Tab, 90 MG PO BID for 30 Days, #60 TAB 2 Refills Prov:NOMI DUNCAN DRILLING SUPERINTENDENT 02/23/25 Atorvastatin Calcium (ATORVASTATIN CALCIUM) 80 Mg Tab, 1 TAB PO DAILY for 30 Days, #30 TAB 5 Refills Prov:NOMI DUNCAN NP 02/23/25 Empagliflozin (Jardiance) 10 Mg Tab, 10 MG PO DAILY for 30 Days, #30 TAB 3 Refills Prov:NOMI DUNCAN DRILLING SUPERINTENDENT 02/23/25 Reported Medications Amlodipine Besylate (Amlodipine Besylate) 5 Mg Tab, 1 TAB PO DAILY 03/24/25 Aspirin (Aspirin) 81 Mg Chw, 81 MG PO, TAB.CHEW 02/20/25 Metoprolol Succinate (Toprol Xl) 25 Mg Tab, 1 TAB PO DAILY, #30 TAB 5 Refills 02/20/25 Glipizide (Glipizide) 10 Mg Tab, 10 MG PO BIDWM for 30 Days, MG 02/20/25 Current Medications Current Medications Medications (Trade) Dose Ordered Sig/Scott Route PRN Reason Start Time Stop Time Status Last Admin Cefepime HCl 50 ml @ 12.5 mls/hr Q8HR IV 04/05/25 14:00 04/05/25 21:41 DC 04/05/25 18:49 Vancomycin HCl 0 ml @ 0 mls/hr PER PHARMACY IV 04/05/25 14:00 Acetaminophen/ Hydrocodone Bitart ([place] 5/325MG Tab) 1 tab Q4HP PRN PO MODERATE PAIN (4-6 PAIN SCALE) 04/05/25 21:15 Diagnostic Test (Pha) (Accu-Chek Comfort Curve T) 1 strip ACHS 04/05/25 22:00 04/06/25 06:37 Insulin Human Regular (InsuLIN R) HS SC 04/05/25 22:00 04/05/25 23:08 Insulin Human Regular (InsuLIN R) AC SC 04/06/25 07:00 04/06/25 06:39 Dextrose 50 ml UD PRN IV Blood Sugar LESS THAN 60 04/05/25 21:15 Cefepime HCl 50 ml @ 12.5 mls/hr Q12HR IV 04/05/25 22:00 04/06/25 01:54 Aspirin 81 mg DAILY PO 04/06/25 10:00 Atorvastatin Calcium (Lipitor) 80 mg HS PO 04/05/25 22:00 04/05/25 23:13 Amlodipine Besylate (Norvasc Tablet) 10 mg DAILY PO 04/06/25 10:00 Insulin Glargine (Lantus) 15 units HS SC 04/05/25 22:00 04/05/25 23:19 Heparin Sodium/ Dextrose 250 ml @ 8 mls/hr Q24H IV 04/05/25 23:30 04/06/25 01:11 Hydromorphone HCl (Dilaudid Injection) 0.25 mg Q4HPRN PRN IV SEVERE PAIN (7-10 PAIN SCALE) 04/05/25 22:00 04/06/25 02:51 Review of Systems All systems reviewed otherwise negative other what is in HPI. Vital Signs Vital Signs Date Time Temp Pulse Resp B/P (MAP) Pulse Ox O2 Delivery O2 Flow Rate FiO2 04/06/25 05:00 97.7 67 18 127/78 (94) 95 97.7 04/06/25 00:28 Room Air* 0 21 Physical Exam Head eyes ears nose and throat exam as nonicteric conjunctiva is pink neck is supple no JVD no lymphadenopathy no carotid bruits lungs are clear to auscultation heart was regular rate rhythm abdomen soft nontender with no pulsatile abdominal masses or bruits no extremities palpable femoral pulses bilaterally nonpalpable popliteal pulses are weakly palpable pedal pulses. She has ecchymosis and bluish discoloration on the right 5th toe. Painful to the touch. Labs/Diagnostic Data Labs Test 04/06/25 06:19 04/06/25 06:05 04/05/25 13:22 Range/Units POC Glucose 196 H 70-106 mg/dl White Blood Count 28.1 H 4.4-10.8 10^3/uL Red Blood Count 5.11 4.0-5.20 10^6/uL Hemoglobin 14.2 12.2-16.2 g/dL Hematocrit 44.4 36.0-46.0 % Mean Corpuscular Volume 86.9 80.0-100.0 fL Mean Corpuscular Hemoglobin 27.8 L 28.0-32.0 pg Mean Corpuscular Hemoglobin Concent 32.0 32.0-36.0 g/dL Red Cell Distribution Width 16.3 H 11.8-14.3 % Platelet Count 327 140-450 10^3/uL Mean Platelet Volume 7.4 6.9-10.8 fL Neutrophils (%) (Auto) 37.0-80.0 % Lymphocytes (%) (Auto) 10.0-50.0 % Monocytes (%) (Auto) 0.0-12.0 % Basophils (%) (Auto) 0.0-2.0 % Neutrophils # (Auto) 1.6-8.6 10 ^3/uL Lymphocytes # (Auto) 0.4-5.4 10 ^3/uL Monocytes # (Auto) 0-1.3 10 ^3/uL Lactic Acid Level 1.0 0.4-2.0 mmol/L Random Vancomycin Level 7.7 5-10 ug/mL Erythrocyte Sedimentation Rate 16 0-20 mm/hr Magnesium Level 2.1 1.6-2.6 mg/dL Direct Bilirubin < 0.1 <0.3 mg/dL C-Reactive Protein High Sensitivity 0.75 <1.0 mg/dL B-Type Natriuretic Peptide 264.59 0-100 pg/mL Examination: CT ANGIO EXTREMITY BILAT CLINICAL HISTORY: blue toe syndrome, r/o arterial emboli Comparison: None Technique: Using helical technique, CT data from the lower abdomen through the toes was obtained during rapid IV contrast infusion. The examination was timed to the arterial system to generate a CT angiographic study. 3D images were generated at an independent work station. Dose reduction techniques included automated exposure control. Radiation Dose Information: CT Dose: CTDI volume is 25.35 mGy. Dose-length product is 2878.49 mGy*cm Contrast: 100 cc Omnipaque 350. Findings: Vascular: On the right there is moderate to high-grade short segmental stenosis within a distal common iliac. Mild atherosclerotic narrowing throughout the external iliac and common femoral. SFA is patent. Popliteal is widely patent. 3-vessel runoff. On the left there is mild irregular atherosclerotic luminal narrowing throughout the common and external iliac. Common femoral is patent. SFA is occluded from its origin. Reopacification of the distal most SFA. Mild atherosclerotic luminal narrowing throughout the popliteal. Faint 3-vessel runoff. Nonvascular: Bladder: Unremarkable. GI System: Diffuse colonic diverticulosis. Lymph nodes: No lymphadenopathy. Peritoneal cavity and surface: No free fluid. No pneumoperitoneum. Soft Tissues: Normal. Reproductive Organs: Normal. Bones: No acute fracture or aggressive osseous lesion. Impression: Long segmental occlusion throughout of the left SFA. Moderate to high-grade short segmental atherosclerotic narrowing within the right distal common iliac artery. Assessment Ischemic right 5th toe with severe peripheral vascular disease. We will plan on performing aortogram with bilateral lower extremity arteriogram with possible endovascular revascularization today. Stressed the importance of quitting smoking Continuing with her anticoagulant therapy Continue with heparin Patient is aware of the findings and is in agreement with plan. Plan/Recommendation Ischemic right 5th toe with severe peripheral vascular disease. We will plan on performing aortogram with bilateral lower extremity arteriogram with possible endovascular revascularization today. Stressed the importance of quitting smoking Continuing with her anticoagulant therapy Continue with heparin Patient is aware of the findings and is in agreement with plan. Plan discussed with: Patient BIBIANA MARINA Jr., MD Apr 06, 2025 07:32
[2025-04-06 07:38] LABS: Alanine Aminotransferase 16 U/L (7-40); Albumin 4.0 g/dL (3.2-4.8); Anion Gap 7 (5-15); BUN/Creatinine Ratio 10.6 (10.0-20.0); Blood Urea Nitrogen 9 mg/dL (9-23); Carbon Dioxide 24 mmol/L (20-31); Potassium 4.6 mmol/L (3.5-5.1); Sodium 140 mmol/L (136-145); Total Protein 6.5 g/dL (5.7-8.2)
[2025-04-06 07:44] LABS: Alkaline Phosphatase 159 U/L (46-116); Bilirubin, Total 0.3 mg/dL (0.2-1.0); Calcium 8.6 mg/dL (8.7-10.4); Chloride 109 mmol/L (98-107); Glucose 190 mg/dL (74-106)
[2025-04-06 08:39] LABS: Total Cells Counted 100.0 (100)
[2025-04-06 09:40] LABS: Partial Thromboplastin Time 34.5 SEC (24.5-34.5)
--- NOTE | 2025-04-06 10:01 | CONS ---
Pharmacy Clinical Information: HEPARIN DRIP, ACS PROTOCOL @0605 APTT 34.5 - 5000 UNIT BOLUS, INCREASE HEPARIN DRIP RATE TO 1100 UNITS/HR NEXT APTT DRAW SCHEDULED @1600 PER RX PROTOCOL CONFIRMED AND READ BACK WITH RN BELLE MONTENEGRO [facility] RESIDENT Apr 06, 2025 10:01
[2025-04-06 10:12] LABS: INR 1.0 (0.9-1.15); Prothrombin Time 10.6 sec (9.3-11.8)
[2025-04-06] MEDS: IODIXANOL 320MG/ML 100ML BTL IV ONE (13:10)
[2025-04-06] MEDS: HEPARIN IN NS 1000Units/500mL 1,500 ML ONE (13:11)
[2025-04-06] MEDS: ANGIOMAX 250 MG VIAL IV ONE (13:18)
[2025-04-06] MEDS: MIDAZOLAM HCL 2MG/2ML 2ml VIAL (1mg/ml) ONE (13:19)
[2025-04-06] MEDS: fentaNYL CITRATE 100 MCG/2 ML VL ONE (13:19)
[2025-04-06] MEDS: SODIUM CHL 0.9% 0 ML ONE (13:19)
[2025-04-06] MEDS: LIDOCAINE 2%HCL (LOCAL ANESTH.) INJ 20ML MDV ONE (13:19)
--- NOTE | 2025-04-06 13:56 | DVHOP2 ---
Operative Report - 2 Report Details Date: 04/06/25 Preop Diagnosis: RIGHT LOWER EXTREMITY LIMB ISCHEMIA Postop Diagnosis: Right 90% common iliac artery stenosis treated with iliac angioplasty and stent to 0 residual stenosis Surgeon: Saad Tejada MD Anesthesiologist: eduardo Anesthesia: Mac Consent: The patient was informed of the risks and benefits of the procedure. These include but are not limited to complications of anesthesia, postoperative infection, incomplete relief of symptoms, recurrence of symptoms, damage to blood vessels, nerves and tendons, deep venous thrombosis, pulmonary embolism and possible need for repeat surgery in the future. Name of Procedure Performed Aortogram right lower extremity arteriogram right common iliac angioplasty and stent Procedure Details Procedure Details: Patient was identified in the preop hold area. She was consented in preop by myself she was brought back to the shop laborer placed in the shop laborer table in supine position after adequate induction of anesthesia antibiotics and time-out the right and left groins were prepped and draped normal surgical fashion. The left common femoral artery was cannulated after 1% lidocaine was injected above it using a 4 Cuban micropuncture needle the left common femoral artery was cannulated. It was changed out for a 6 Cuban sheath. A wire and catheter was placed into the aorta. Aortogram was performed. This demonstrated a widely patent aorta with a left common iliac artery widely patent right common iliac artery has a 90% stenosis. The right lower extremity arteriogram was performed which demonstrated widely patent common femoral artery widely patent profunda and SFA the popliteal artery was widely patent. The lower extremity [id number] vessels there was two-vessel runoff to the foot including the posterior tibial artery being the main artery as well as the peroneal artery. The anterior tibial artery was occluded just after the takeoff. At this point in time a wire was then passed across the common iliac artery stenosis. The 6 Cuban sheath was exchanged out for a 45 cm destination sheath. A 7 by 57 mm stent was deployed with a balloon expandable system. The completion angiogram demonstrated no residual stenosis of the right common iliac artery with excellent flow. A left lower extremity arteriogram was performed demonstrating the left common femoral artery was widely patent and acceptable for an Angio- Seal. At this point in time a 6 Cuban Angio-Seal was deployed in the left groin. Manual pressure was held and the patient was taken to the recovery room in stable condition. Condition Good Disposition Still a Patient SAAD TEJADA Jr., MD Apr 06, 2025 13:56
[2025-04-06] MEDS ORDERED: VANCOMYCIN 1GM/250ML KIT 250 ML IV SCH (14:00)
[2025-04-06] MEDS: CLOPIDOGREL BISULFATE 75 MG TAB PO ONE (14:30)
[2025-04-06 19:07] LABS: INR 1.02 (0.9-1.15); Partial Thromboplastin Time 59.0 SEC (24.5-34.5); Prothrombin Time 10.8 sec (9.3-11.8)
--- NOTE | 2025-04-06 20:28 | DVHPNRES ---
Progress Note Date Seen: Apr 06, 2025 Resident Creating Document: SANDOVAL RIVERS RESIDENT Has the PT tested + for MRSA If YES, has PT been informed?: No Medical Necessity Reason Pt with a Central, PICC or Fol: No Subjective Review of Systems Cass Real is a 65-year-old female, with past medical history of hyperlipidemia, hypertension, [place] with PTCA (01/2025) and leukemia (patient does not remember the type) and DM2. The patient presented to the ED with history of 2 month of right 5th toe pain, 9/10, sharp-like, continue, no radiation. The pain is worsen with movement of the right foot and when she bear weight on it, improve with rest. The patient reports she started noticing her right 5th toe change in color, from red to purple-keily, with worsen pain and swelling, this prompted her visit to the ED. Also, reports that her extremities are bluish in color when it gets cold. The patient denies other trauma, fever, chills, abdominal pain, chest pain, headache or other symptoms. On further questioning, the patient was admitted in the ER on 03/24/2025 onto 03/29/2025 for similar symptoms. On evaluation in the ED, patient is afebrile, blood pressure is 165/65 mmHg. Initial labs show WBC 30.3, serum glucose 318, lactic acid 2.4. Foot X-Ray shows no evidence of acute fracture or dislocation and the visualized joint space is well maintained. The patient was placed NPO, started on heparin drip, IV antibiotics and IV fluids. Patient is admitted for further evaluation and management. Past Medical History:DM2, High Lipids, HTN, chronic leukemia Past Surgical History: Appendectomy, Hysterectomy, PTCA, Tonsillectomy Family History: None Past Social History: Smoker: Cigarettes, > 50 years. Alcohol: Occasionally. Drugs: Methamphetamine, marijuana, > 6 years, quit 2 years ago. Hospital course: On 04/06/25, the patient was evaluated and examined at bedside today. Vital signs, laboratories and chart was reviewed. The patient reports pain on the right 5th toe 9/10 on palpation but 5/10 at rest, no other complaints. The bilateral leg angiogram showed: On the right there is moderate to high-grade short segmental stenosis within a distal common iliac. Mild atherosclerotic narrowing throughout the external iliac and common femoral. SFA is patent. Popliteal is widely patent. Vascular surgery is onboard. Dr. Tejada evaluated the patient, his plan was to perform an aortogram with bilateral lower extremity arteriogram. The patient went for the procedure today. They add a 7 by 57 mm stent with a balloon expandable system. After this the angiogram demonstrated no residual stenosis of the right common iliac artery with excellent flow. The patient is in her room recovering. We will continue following up this patient progress. ROS: Eyes: No Pain, No Vision change, No Conjunctivae inflammation, No Eyelid inflammation, No Other, No Redness ENT: No Ear pain, No Ear discharge, No Nose pain, No Nose discharge, No Nose congestion, No Mouth pain, No Mouth swelling, No Throat pain, No Throat swelling, No Other Cardiovascular: No Chest Pain, No Palpitations, No Orthopnea, No Paroxysmal No Dyspnea, No Edema, No Lt Headedness, No Other Respiratory: No Cough, No Dry, No Shortness of breath, No SOB with exertion, No Wheezing, No Hemoptysis, No Pleuritic Pain, No Sputum, No Other Gastrointestinal: No Nausea, No Vomiting, No Abdominal Pain, No Diarrhea, No Constipation, No Melena, No Hematochezia, No Other Genitourinary: No Dysuria, No Frequency, No Incontinence, No Hematuria, No Retention, No Other Musculoskeletal: Right 5th toe pain. No other, No neck pain, No shoulder pain, No arm pain, No back pain, No hand pain. Skin: No Rash, No Lesions, No Jaundice, No Bruising, No Other Allergies: Tetanus Toxoid (Verified Allergy, Unknown, 03/25/15). LATEX BANDAIDS (Allergy, Unknown, 03/25/15) Objective vital signs Vital Sign Date Time Temp Pulse Resp B/P (MAP) Pulse Ox O2 Delivery O2 Flow Rate FiO2 04/06/25 17:58 80 16 134/78 04/06/25 16:51 98.3 93 98.3 04/06/25 08:00 Room Air* 0 21 Total Intake and Output 04/05/25 04/05/25 04/06/25 15:00 23:00 07:00 Intake Total 2250 ml 0 ml Balance 2250 ml 0 ml medications Current Medications Medications Dose Ordered Sig/Scott Route Start Time Stop Time Status Last Admin Dose Admin Vancomycin HCl 0 ml @ 0 mls/hr PER PHARMACY IV 04/05/25 14:00 Acetaminophen/ Hydrocodone Bitart 1 tab Q4HP PRN PO 04/05/25 21:15 Diagnostic Test (Pha) 1 strip ACHS 04/05/25 22:00 04/06/25 16:45 1 STRIP Insulin Human Regular HS SC 04/05/25 22:00 04/05/25 23:08 8 UNITS Insulin Human Regular AC SC 04/06/25 07:00 04/06/25 06:39 3 UNITS Dextrose 50 ml UD PRN IV 04/05/25 21:15 Cefepime HCl 50 ml @ 12.5 mls/hr Q12HR IV 04/05/25 22:00 04/06/25 10:00 12.5 MLS/HR Aspirin 81 mg DAILY PO 04/06/25 10:00 Atorvastatin Calcium 80 mg HS PO 04/05/25 22:00 04/05/25 23:13 80 MG Amlodipine Besylate 10 mg DAILY PO 04/06/25 10:00 Insulin Glargine 15 units HS SC 04/05/25 22:00 04/05/25 23:19 15 UNITS Hydromorphone HCl 0.25 mg Q4HPRN PRN IV 04/05/25 22:00 04/06/25 17:28 0.25 MG Heparin Sodium/ Dextrose 250 ml @ 11 mls/hr [id number] IV 04/06/25 10:00 04/06/25 10:00 11 MLS/HR Clopidogrel Bisulfate 75 mg DAILY PO 04/07/25 10:00 Vancomycin HCl 250 ml @ 250 mls/hr Q12H IV 04/06/25 20:00 Examination General Appearance: Not in acute distress. Cooperative. Well developed. Head Exam: Normal inspection Neck Exam: Normal inspection. Non-tender. Normal alignment Pulmonary/Respiratory: Chest non-tender. Clear bilateral breath sounds, no crackles, no wheezing. Cardiovascular/Chest: Regular rate and rhythm. No murmurs. No JVD. Peripheral Pulses: 2+ Radial (R). 2+ Radial (L). 2+ Pedal (R). 2+ Pedal (L) Abdominal Exam: Normal bowel sounds. Soft. normal abdomen, no visible veins, Nontender. No hepatospenomegaly. No masses Ankle Exam: Negative ankle edema Lower extremities: Right foot 5th toe has a purple dislocation, tender to touch. Normal ROM. Dorsalis pedis pulse 2+. Sensation intact Neuro/Mental Status: A&O x3. Coherent. Thoughts/Psych: Normal thought pattern. Appropriate mood and affect. Good judgement and insight Skin Exam: Normal inspection. Normal color. Warm. Dry laboratory and microbiology Laboratory Tests 04/06/25 06:05 Test 04/06/25 06:05 Range/Units Serum Glucose 190 H 74-106 mg/dL Microbiology Date/Time Source Procedure Growth Status 04/05/25 14:44 Blood Blood Culture - Preliminary NO GROWTH AFTER 24 HOURS OF INCUBATION. Resulted Problem List/Assessment/Plan Problem List/Assessment/Plan #Blue toe syndrome #Acute on chronic limb ischemia #Peripheral arterial disease #Ruled out osteomyelitis CT angiograph: Long segmental occlusion throughout of the left SFA. Moderate to high-grade short segmental atherosclerotic narrowing within the right distal common iliac artery. Bilateral Lower Extremity Arterial Duplex: No flow is seen within the right dorsalis pedis. No flow is seen within the left mid superficial femoral artery. Foot X-Ray: There is no evidence of acute fracture or dislocation. The visualized joint space is well maintained. Foot MR (03/24/25): No MR evidence of osteomyelitis. Small areas of pressure related change and/or infection along the plantar surface of the forefoot and great toe. Foot CT (03/24/25): No acute fracture or dislocation. No CT evidence of osteomyelitis. Soft tissue swelling lateral forefoot. Echocardiogram pending EKG: Sinus rhythm. Abnormal lateral Q waves. Anterior infarct, recent. Vascular consult: completed, patient had Aortogram with endovascular recanalization. Podiatry consult, pending. NPO due to procedure. IV NS 100 MLS/HR one continue Heparin Drip/D5w IV 800 UNITS/HR pain management with [place] 1 TAB po q4h and Dilaudid 0.25 MG IV q4h prn Vancomycin IV per pharmacy Cefepime 1 GM IV q12h UA and UDS: pending Blood culture and urine bacterial culture: no growth after 24hts #CAD with stent placement (01/2025) Atorvastain 80mg po daily Aspirin 81mg po daily #Type 2 diabetes mellitus with hyperglycemia, uncontrolled HbA1C: 10.4% Insulin lantus 15 units sc hs Moderate insulin SS #Hypertensive heart disease with possible systolic/diastolic failure Amlodipine 10 mg PO daily #Tobacco usage (<1 pack per day) Counseling about quitting smoking. Diet: Cardiac diet DVT prophylaxis: Heparin Drip/D5w IV 800 UNITS/HR Goals of care: Full code, discussed for >35 minutes Code status: Full code Plan discussed with patient Plan discussed with Dr. Yip Plan discussed with: Patient My Orders My Orders Orders - SANDOVAL RIVERS Procedure Category Date Status Time Discontinue Tele ANAYA 04/06/25 In Process 09:13 Transfer Orders XFER 04/06/25 Transmitted 09:13 Basic Metabolic Panel LAB 04/07/25 Verified 04:00 Date of Service: Apr 06, 2025 Billing Provider: JAMIE YIP MD Common Visit Codes: [id number] INP/OBS CARE(HIGH) SANDOVAL RIVERS RESIDENT Apr 06, 2025 20:28
[2025-04-06] MEDS: VANCOMYCIN 1GM/250ML KIT 250 ML IV SCH (20:31)
[2025-04-06] MEDS: HYDROcodone-ACET 5/325MG TAB PO PRN (20:32)
[2025-04-07] VITALS (8 sets, daily range): BP systolic 113–139; BP diastolic 53–98; PULSE 65–95; RESP 17–18; TEMP 97.5–98.3; O2SAT 92–98
[2025-04-07 01:00] LABS: INR 1.0 (0.9-1.15); Partial Thromboplastin Time 39.0 SEC (24.5-34.5); Prothrombin Time 10.6 sec (9.3-11.8)
[2025-04-07] MEDS: HEPARIN DRIP/D5W 100UNITS/ML 250 ML IV SCH ×2 (01:50→09:35)
[2025-04-07 08:50] LABS: Hematocrit 41.8 % (36.0-46.0); Hemoglobin 13.7 g/dL (12.2-16.2); Mean Corpuscular Hemoglobin 27.6 pg (28.0-32.0); Mean Corpuscular Volume 84.2 fL (80.0-100.0)
[2025-04-07 08:59] LABS: Chloride 106 mmol/L (98-107); Potassium 4.3 mmol/L (3.5-5.1); Sodium 139 mmol/L (136-145)
[2025-04-07 09:00] LABS: Anion Gap 8 (5-15); Calcium 9.0 mg/dL (8.7-10.4); Carbon Dioxide 25 mmol/L (20-31)
[2025-04-07 09:05] LABS: BUN/Creatinine Ratio 11.5 (10.0-20.0); Blood Urea Nitrogen 10 mg/dL (9-23)
[2025-04-07 09:06] LABS: Glucose 174 mg/dL (74-106); INR 1.03 (0.9-1.15); Partial Thromboplastin Time 40.6 SEC (24.5-34.5); Prothrombin Time 10.9 sec (9.3-11.8)
--- NOTE | 2025-04-07 09:18 | CONS ---
Pharmacy Clinical Information: HEPARIN DRIP, TOE ISCHEMIA (ACS PROTOCOL) @0740 APTT 40.6 - NO BOLUS, INCREASE HEPARIN DRIP RATE TO 1500 UNITS/HR NEXT APTT DRAW SCHEDULED @1530 PER RX PROTOCOL CONFIRMED AND READ BACK WITH BELLE QUAN [facility] RESIDENT Apr 07, 2025 09:18
[2025-04-07] MEDS: CLOPIDOGREL BISULFATE 75 MG TAB PO SCH (09:26)
[2025-04-07 09:42] LABS: Total Cells Counted 100.0 (100)
[2025-04-07 12:40] LABS: Urine Protein, UAD TRACE (Negative)
[2025-04-07 12:46] LABS: Amphetamine Screen, Urine Neg (NEGATIVE); Benzodiazephine Screen, Urine Pos (NEGATIVE)
[2025-04-07 12:47] LABS: Opiate Scree,Urine Pos (NEGATIVE)
[2025-04-07 12:50] LABS: Barbiturate Scree,Urine Neg (NEGATIVE); Cannabinoid Screen, Urine Neg (NEGATIVE); Cocaine Screen, Urine Neg (NEGATIVE); Phencyclidine Screen, Urine Neg (NEGATIVE)
--- NOTE | 2025-04-07 22:10 | DVHPNRES ---
Progress Note Date Seen: Apr 07, 2025 Resident Creating Document: SANDOVAL RIVERS RESIDENT Has the PT tested + for MRSA If YES, has PT been informed?: No Medical Necessity Reason Pt with a Central, PICC or Fol: No Subjective Review of Systems Cass Real is a 65-year-old female, with past medical history of hyperlipidemia, hypertension, [place] with PTCA (01/2025) and leukemia (patient does not remember the type) and DM2. The patient presented to the ED with history of 2 month of right 5th toe pain, 9/10, sharp-like, continue, no radiation. The pain is worsen with movement of the right foot and when she bear weight on it, improve with rest. The patient reports she started noticing her right 5th toe change in color, from red to purple-keily, with worsen pain and swelling, this prompted her visit to the ED. Also, reports that her extremities are bluish in color when it gets cold. The patient denies other trauma, fever, chills, abdominal pain, chest pain, headache or other symptoms. On further questioning, the patient was admitted in the ER on 03/24/2025 onto 03/29/2025 for similar symptoms. On evaluation in the ED, patient is afebrile, blood pressure is 165/65 mmHg. Initial labs show WBC 30.3, serum glucose 318, lactic acid 2.4. Foot X-Ray shows no evidence of acute fracture or dislocation and the visualized joint space is well maintained. The patient was placed NPO, started on heparin drip, IV antibiotics and IV fluids. Patient is admitted for further evaluation and management. Past Medical History:DM2, High Lipids, HTN, chronic leukemia Past Surgical History: Appendectomy, Hysterectomy, PTCA, Tonsillectomy Family History: None Past Social History: Smoker: Cigarettes, > 50 years. Alcohol: Occasionally. Drugs: Methamphetamine, marijuana, > 6 years, quit 2 years ago. Hospital course: On 04/06/25, the patient was evaluated and examined at bedside today. Vital signs, laboratories and chart was reviewed. The patient reports pain on the right 5th toe 9/10 on palpation but 5/10 at rest, no other complaints. The bilateral leg angiogram showed: On the right there is moderate to high-grade short segmental stenosis within a distal common iliac. Mild atherosclerotic narrowing throughout the external iliac and common femoral. SFA is patent. Popliteal is widely patent. Vascular surgery is onboard. Dr. Tejada evaluated the patient, his plan was to perform an aortogram with bilateral lower extremity arteriogram. The patient went for the procedure today. They add a 7 by 57 mm stent with a balloon expandable system. After this the angiogram demonstrated no residual stenosis of the right common iliac artery with excellent flow. The patient is in her room recovering. We will continue following up this patient progress. On 04/07/25, the patient was evaluated and examined at bedside today. Vital signs, laboratories and chart was reviewed. The patient reports pain on the right 5th has improved after procedure to 5/1. No other complaints. Vascular surgery is onboard. We will continue following up the progress of this patient closely. ROS: Eyes: No Pain, No Vision change, No Conjunctivae inflammation, No Eyelid inflammation, No Other, No Redness ENT: No Ear pain, No Ear discharge, No Nose pain, No Nose discharge, No Nose congestion, No Mouth pain, No Mouth swelling, No Throat pain, No Throat swelling, No Other Cardiovascular: No Chest Pain, No Palpitations, No Orthopnea, No Paroxysmal No Dyspnea, No Edema, No Lt Headedness, No Other Respiratory: No Cough, No Dry, No Shortness of breath, No SOB with exertion, No Wheezing, No Hemoptysis, No Pleuritic Pain, No Sputum, No Other Gastrointestinal: No Nausea, No Vomiting, No Abdominal Pain, No Diarrhea, No Constipation, No Melena, No Hematochezia, No Other Genitourinary: No Dysuria, No Frequency, No Incontinence, No Hematuria, No Retention, No Other Musculoskeletal: Right 5th toe pain improved. No other, No neck pain, No shoulder pain, No arm pain, No back pain, No hand pain. Skin: No Rash, No Lesions, No Jaundice, No Bruising, No Other Allergies: Tetanus Toxoid (Verified Allergy, Unknown, 03/25/15). LATEX BANDAIDS (Allergy, Unknown, 03/25/15) Objective vital signs Vital Sign Date Time Temp Pulse Resp B/P (MAP) Pulse Ox O2 Delivery O2 Flow Rate FiO2 04/07/25 21:00 97.5 95 17 134/77 (96) 97 97.5 04/07/25 08:10 Room Air* 0 21 Total Intake and Output 04/06/25 04/06/25 04/07/25 15:00 23:00 07:00 Intake Total 850 ml 490 ml Balance 850 ml 490 ml medications Current Medications Medications Dose Ordered Sig/Scott Route Start Time Stop Time Status Last Admin Dose Admin Vancomycin HCl 0 ml @ 0 mls/hr PER PHARMACY IV 04/05/25 14:00 Acetaminophen/ Hydrocodone Bitart 1 tab Q4HP PRN PO 04/05/25 21:15 04/07/25 20:43 1 TAB Diagnostic Test (Pha) 1 strip ACHS 04/05/25 22:00 04/07/25 16:33 1 STRIP Insulin Human Regular HS SC 04/05/25 22:00 04/06/25 22:03 4 UNITS Insulin Human Regular AC SC 04/06/25 07:00 04/07/25 11:24 6 UNITS Dextrose 50 ml UD PRN IV 04/05/25 21:15 Cefepime HCl 50 ml @ 12.5 mls/hr Q12HR IV 04/05/25 22:00 04/07/25 21:49 12.5 MLS/HR Aspirin 81 mg DAILY PO 04/06/25 10:00 Atorvastatin Calcium 80 mg HS PO 04/05/25 22:00 04/07/25 21:50 80 MG Amlodipine Besylate 10 mg DAILY PO 04/06/25 10:00 04/07/25 09:25 10 MG Insulin Glargine 15 units HS SC 04/05/25 22:00 04/06/25 22:05 15 UNITS Hydromorphone HCl 0.25 mg Q4HPRN PRN IV 04/05/25 22:00 04/07/25 18:17 0.25 MG Clopidogrel Bisulfate 75 mg DAILY PO 04/07/25 10:00 04/07/25 09:26 75 MG Vancomycin HCl 250 ml @ 250 mls/hr Q12H IV 04/06/25 20:00 04/07/25 20:37 250 MLS/HR Examination General Appearance: Not in acute distress. Cooperative. Well developed. Head Exam: Normal inspection Neck Exam: Normal inspection. Non-tender. Normal alignment Pulmonary/Respiratory: Chest non-tender. Clear bilateral breath sounds, no crackles, no wheezing. Cardiovascular/Chest: Regular rate and rhythm. No murmurs. No JVD. Peripheral Pulses: 2+ Radial (R). 2+ Radial (L). 2+ Pedal (R). 2+ Pedal (L) Abdominal Exam: Normal bowel sounds. Soft. normal abdomen, no visible veins, Nontender. No hepatospenomegaly. No masses Ankle Exam: Negative ankle edema Lower extremities: Right foot 5th toe has a purple dislocation, tender to touch. Normal ROM. Dorsalis pedis pulse 2+. Sensation intact Neuro/Mental Status: A&O x3. Coherent. Thoughts/Psych: Normal thought pattern. Appropriate mood and affect. Good judgement and insight Skin Exam: Normal inspection. Normal color. Warm. Dry laboratory and microbiology Laboratory Tests 04/07/25 07:40 Test 04/07/25 07:40 Range/Units Serum Glucose 174 H 74-106 mg/dL Microbiology Date/Time Source Procedure Growth Status 04/05/25 14:44 Blood Blood Culture - Preliminary NO GROWTH AFTER 48 HOURS OF INCUBATION. Resulted Problem List/Assessment/Plan Problem List/Assessment/Plan #Blue toe syndrome #Acute on chronic limb ischemia #Peripheral arterial disease #Osteomyelitis, ruled out CT angiograph: Long segmental occlusion throughout of the left SFA. Moderate to high-grade short segmental atherosclerotic narrowing within the right distal common iliac artery. Echocardiogram: result is pending Vascular consult: completed, patient had Aortogram with endovascular recanalization. Discontinue Heparin Drip/D5w IV 800 UNITS/HR Pain management with [place] 1 TAB po q4h and Dilaudid 0.25 MG IV q4h prn Vancomycin IV per pharmacy Cefepime 1 GM IV q12h UA and UDS: pending Blood culture and urine bacterial culture: no growth after 72hrs #CAD with stent placement (01/2025) Atorvastain 80mg po daily Aspirin 81mg po daily Plavix po daily #Type 2 diabetes mellitus with hyperglycemia, uncontrolled HbA1C: 10.4% Insulin lantus 15 units sc hs Moderate insulin SS #Hypertensive heart disease with possible systolic/diastolic failure Amlodipine 10 mg PO daily #Tobacco usage (<1 pack per day) Counseling about quitting smoking >10 min. Diet: Cardiac diet DVT prophylaxis Goals of care: Full code, discussed for >35 minutes Code status: Full code Plan discussed with patient Plan discussed with Dr. Yip Plan discussed with: Patient My Orders My Orders Orders - SANDOVAL RIVERS RESIDENT Procedure Category Date Status Time Communication Order ORDERS 04/07/25 Transmitted 06:46 Mrsa Screen ANI 04/07/25 In Process 11:58 Date of Service: Apr 07, 2025 Billing Provider: JAMIE YIP MD Common Visit Codes: [id number] INP/OBS CARE(HIGH) SANDOVAL RIVERS RESIDENT Apr 07, 2025 22:10
[2025-04-08] VITALS (7 sets, daily range): BP systolic 116–138; BP diastolic 47–76; PULSE 66–85; RESP 17–19; TEMP 97.5–98.3; O2SAT 88–100
[2025-04-08 06:44] LABS: Hematocrit 41.1 % (36.0-46.0); Hemoglobin 13.5 g/dL (12.2-16.2); Mean Corpuscular Hemoglobin 27.6 pg (28.0-32.0); Mean Corpuscular Volume 83.8 fL (80.0-100.0)
[2025-04-08 08:51] LABS: Total Cells Counted 100.0 (100)
--- NOTE | 2025-04-08 16:11 | DVHPNRES ---
Progress Note Date Seen: Apr 08, 2025 Resident Creating Document: SANDOVAL RIVERS RESIDENT Has the PT tested + for MRSA If YES, has PT been informed?: No Medical Necessity Reason Pt with a Central, PICC or Fol: No Subjective Review of Systems Cass Real is a 65-year-old female, with past medical history of hyperlipidemia, hypertension, [place] with PTCA (01/2025) and leukemia (patient does not remember the type) and DM2. The patient presented to the ED with history of 2 month of right 5th toe pain, 9/10, sharp-like, continue, no radiation. The pain is worsen with movement of the right foot and when she bear weight on it, improve with rest. The patient reports she started noticing her right 5th toe change in color, from red to purple-keily, with worsen pain and swelling, this prompted her visit to the ED. Also, reports that her extremities are bluish in color when it gets cold. The patient denies other trauma, fever, chills, abdominal pain, chest pain, headache or other symptoms. On further questioning, the patient was admitted in the ER on 03/24/2025 onto 03/29/2025 for similar symptoms. On evaluation in the ED, patient is afebrile, blood pressure is 165/65 mmHg. Initial labs show WBC 30.3, serum glucose 318, lactic acid 2.4. Foot X-Ray shows no evidence of acute fracture or dislocation and the visualized joint space is well maintained. The patient was placed NPO, started on heparin drip, IV antibiotics and IV fluids. Patient is admitted for further evaluation and management. Past Medical History:DM2, High Lipids, HTN, chronic leukemia Past Surgical History: Appendectomy, Hysterectomy, PTCA, Tonsillectomy Family History: None Past Social History: Smoker: Cigarettes, > 50 years. Alcohol: Occasionally. Drugs: Methamphetamine, marijuana, > 6 years, quit 2 years ago. Hospital course: On 04/06/25, the patient was evaluated and examined at bedside today. Vital signs, laboratories and chart was reviewed. The patient reports pain on the right 5th toe 9/10 on palpation but 5/10 at rest, no other complaints. The bilateral leg angiogram showed: On the right there is moderate to high-grade short segmental stenosis within a distal common iliac. Mild atherosclerotic narrowing throughout the external iliac and common femoral. SFA is patent. Popliteal is widely patent. Vascular surgery is onboard. Dr. Tejada evaluated the patient, his plan was to perform an aortogram with bilateral lower extremity arteriogram. The patient went for the procedure today. They add a 7 by 57 mm stent with a balloon expandable system. After this the angiogram demonstrated no residual stenosis of the right common iliac artery with excellent flow. The patient is in her room recovering. We will continue following up this patient progress. On 04/07/25, the patient was evaluated and examined at bedside today. Vital signs, laboratories and chart was reviewed. The patient reports pain on the right 5th has improved after procedure to 5/1. No other complaints. Vascular surgery is onboard. We will continue following up the progress of this patient closely. On 04/08/25, the patient was re-evaluated and examined at bedside. Patient's labs, VS and chart was reviewed. WBC are still elevated but improving, she is receiving double IV antibiotic therapy cefepime and vancomicyn. The patient reports pain on the right 5th has improved after procedure to 4/1. No new complaints. Dr. Tejada, vascular surgeon is on board. Dr. Ward will inform if the left leg aortogram will be perform during this admission. The heparin drip vas stopped after procedure and Plavix was resumed. We will continue following up the progress of this patient closely. ROS: Eyes: No Pain, No Vision change, No Conjunctivae inflammation, No Eyelid inflammation, No Other, No Redness ENT: No Ear pain, No Ear discharge, No Nose pain, No Nose discharge, No Nose congestion, No Mouth pain, No Mouth swelling, No Throat pain, No Throat swelling, No Other Cardiovascular: No Chest Pain, No Palpitations, No Orthopnea, No Paroxysmal No Dyspnea, No Edema, No Lt Headedness, No Other Respiratory: No Cough, No Dry, No Shortness of breath, No SOB with exertion, No Wheezing, No Hemoptysis, No Pleuritic Pain, No Sputum, No Other Gastrointestinal: No Nausea, No Vomiting, No Abdominal Pain, No Diarrhea, No Constipation, No Melena, No Hematochezia, No Other Genitourinary: No Dysuria, No Frequency, No Incontinence, No Hematuria, No Retention, No Other Musculoskeletal: Right 5th toe pain improved 4/10. No other, No neck pain, No shoulder pain, No arm pain, No back pain, No hand pain. Skin: No Rash, No Lesions, No Jaundice, No Bruising, No Other Allergies: Tetanus Toxoid (Verified Allergy, Unknown, 03/25/15). LATEX BANDAIDS (Allergy, Unknown, 03/25/15) Objective vital signs Vital Sign Date Time Temp Pulse Resp B/P (MAP) Pulse Ox O2 Delivery O2 Flow Rate FiO2 04/08/25 13:00 98.2 76 18 136/76 (96) 91 98.2 04/08/25 08:08 Room Air* 0 21 Total Intake and Output 04/07/25 04/07/25 04/08/25 15:00 23:00 07:00 Intake Total 250 ml 750 ml 550 ml Balance 250 ml 750 ml 550 ml medications Current Medications Medications Dose Ordered Sig/Scott Route Start Time Stop Time Status Last Admin Dose Admin Vancomycin HCl 0 ml @ 0 mls/hr PER PHARMACY IV 04/05/25 14:00 Acetaminophen/ Hydrocodone Bitart 1 tab Q4HP PRN PO 04/05/25 21:15 04/08/25 12:10 1 TAB Diagnostic Test (Pha) 1 strip ACHS 04/05/25 22:00 04/08/25 11:10 1 STRIP Insulin Human Regular HS SC 04/05/25 22:00 04/07/25 22:09 4 UNITS Insulin Human Regular AC SC 04/06/25 07:00 04/08/25 06:05 3 UNITS Dextrose 50 ml UD PRN IV 04/05/25 21:15 Cefepime HCl 50 ml @ 12.5 mls/hr Q12HR IV 04/05/25 22:00 04/08/25 09:48 12.5 MLS/HR Aspirin 81 mg DAILY PO 04/06/25 10:00 04/08/25 09:49 81 MG Atorvastatin Calcium 80 mg HS PO 04/05/25 22:00 04/07/25 21:50 80 MG Amlodipine Besylate 10 mg DAILY PO 04/06/25 10:00 04/08/25 09:49 10 MG Insulin Glargine 15 units HS SC 04/05/25 22:00 04/07/25 22:18 15 UNITS Hydromorphone HCl 0.25 mg Q4HPRN PRN IV 04/05/25 22:00 04/08/25 10:08 0.25 MG Clopidogrel Bisulfate 75 mg DAILY PO 04/07/25 10:00 04/08/25 09:49 75 MG Vancomycin HCl 250 ml @ 250 mls/hr Q12H IV 04/06/25 20:00 04/08/25 08:13 250 MLS/HR Examination General Appearance: Not in acute distress. Cooperative. Well developed. Head Exam: Normal inspection Neck Exam: Normal inspection. Non-tender. Normal alignment Pulmonary/Respiratory: Chest non-tender. Clear bilateral breath sounds, no crackles, no wheezing. Cardiovascular/Chest: Regular rate and rhythm. No murmurs. No JVD. Peripheral Pulses: 2+ Radial (R). 2+ Radial (L). 2+ Pedal (R). 2+ Pedal (L) Abdominal Exam: Normal bowel sounds. Soft. normal abdomen, no visible veins, Nontender. No hepatospenomegaly. No masses Ankle Exam: Negative ankle edema Lower extremities: Right foot 5th toe has a purple discoloration that is improving. Today, only the tip of the 5th toe has a purple discoloration. The right 5th toe is tender to touch. Normal ROM. Dorsalis pedis pulse 2+. Sensation is intact. Neuro/Mental Status: A&O x3. Coherent. Thoughts/Psych: Normal thought pattern. Appropriate mood and affect. Skin Exam: Normal inspection. Normal color. Warm. Dry laboratory and microbiology Laboratory Tests 04/08/25 04:50 04/07/25 07:40 Test 04/07/25 07:40 Range/Units Serum Glucose 174 H 74-106 mg/dL Microbiology Date/Time Source Procedure Growth Status 04/07/25 13:49 Nose MRSA Screen - Final Complete 04/05/25 14:44 Blood Blood Culture - Preliminary NO GROWTH AFTER 48 HOURS OF INCUBATION. Resulted 04/05/25 12:00 Voided Urine Urine Culture - Preliminary No growth Resulted Problem List/Assessment/Plan Problem List/Assessment/Plan #Acute on chronic limb ischemia #Acute on chronic peripheral arterial disease #Osteomyelitis, ruled out CT angiograph: Long segmental occlusion throughout of the left SFA. Moderate to high-grade short segmental atherosclerotic narrowing within the right distal common iliac artery. Echocardiogram: 04/07/25: result is pending Vascular consult: completed, patient had Aortogram with endovascular recanalization on the right leg. Discontinue Heparin Drip/D5w IV 800 UNITS/HR Pain management with [place] 1 TAB po q4h and Dilaudid 0.25 MG IV q4h prn Vancomycin IV per pharmacy Cefepime 1 GM IV q12h Blood culture: no growth after 72hrs #Acute UTI possible due to cystitis Cefepime 1g IV BID UA culture is negative >72hrs #Chronic CAD with stent placement (01/2025) Atorvastain 80mg po daily Aspirin 81mg po daily Plavix po daily #Type 2 diabetes mellitus with hyperglycemia, uncontrolled HbA1C: 10.4% Insulin Lantus 15 units sc hs Moderate insulin SS #Chronic hypertensive heart disease with possible systolic/diastolic failure Amlodipine 10 mg PO daily #Tobacco usage (<1 pack per day) Counseling about quitting smoking >10 min. Diet: Cardiac diet DVT prophylaxis Goals of care: Full code, discussed for >35 minutes Code status: Full code Plan discussed with patient Plan discussed with Dr. Yip Plan discussed with: Patient Date of Service: Apr 08, 2025 Billing Provider: JAMIE YIP MD Common Visit Codes: [id number] INP/OBS CARE(HIGH) SANDOVAL RIVERS RESIDENT Apr 08, 2025 16:11
[2025-04-08] MEDS: FLUCONAZOLE 100 MG TAB PO ONE (16:24)
[2025-04-09 01:00] VITALS: BP 136/76; PULSE 86; RESP 19; TEMP 97.5; O2SAT 90
[2025-04-09 05:00] VITALS: BP 128/69; PULSE 72; RESP 28; TEMP 97.8; O2SAT 93
[2025-04-09 07:41] LABS: Hematocrit 39.6 % (36.0-46.0); Hemoglobin 13.1 g/dL (12.2-16.2); Mean Corpuscular Hemoglobin 28.1 pg (28.0-32.0); Mean Corpuscular Volume 85.0 fL (80.0-100.0)
[2025-04-09 08:22] LABS: Total Cells Counted 100.0 (100)
[2025-04-09 09:00] VITALS: BP 117/73; PULSE 66; RESP 18; TEMP 97.8; O2SAT 95
[2025-04-09] MEDS ORDERED: ASPI81CH59 PO (11:37)
[2025-04-09] MEDS ORDERED: SACU1TAB PO (11:37)
[2025-04-09] MEDS ORDERED: ATOR-47 PO (11:37)
[2025-04-09] MEDS ORDERED: CLOT2CRE5 VA (11:37)
[2025-04-09] MEDS ORDERED: CEFD300C2 PO (11:37)
[2025-04-09] MEDS ORDERED: SPIR25TA8 PO (11:37)
[2025-04-09] MEDS ORDERED: METO25TA93 PO (11:37)
[2025-04-09] MEDS ORDERED: INSUINJ37 SC (11:37)
[2025-04-09] MEDS ORDERED: TICA90TA PO (11:37)
--- NOTE | 2025-04-09 12:10 | DVHDSRES ---
Discharge Summary Date of Admission Resident Creating Document: SANDOVAL RIVERS RESIDENT Apr 05, 2025 at 21:02 Date of Discharge: Apr 09, 2025 Admitting Diagnosis Acute on chronic limb ischemia Wounds: No open wound was present Labs/Diagnostic Data: Laboratory Results Test 04/09/25 06:26 04/09/25 06:05 04/08/25 04:50 04/07/25 12:24 White Blood Count 19.3 10^3/uL (4.4-10.8) Red Blood Count 4.66 10^6/uL (4.0-5.20) Hemoglobin 13.1 g/dL (12.2-16.2) Hematocrit 39.6 % (36.0-46.0) Mean Corpuscular Volume 85.0 fL (80.0-100.0) Mean Corpuscular Hemoglobin 28.1 pg (28.0-32.0) Mean Corpuscular Hemoglobin Concent 33.1 g/dL (32.0-36.0) Red Cell Distribution Width 16.2 % (11.8-14.3) Platelet Count 299 10^3/uL (140-450) Mean Platelet Volume 7.7 fL (6.9-10.8) Neutrophils (%) (Auto) % (37.0-80.0) Lymphocytes (%) (Auto) % (10.0-50.0) Monocytes (%) (Auto) % (0.0-12.0) Basophils (%) (Auto) % (0.0-2.0) Neutrophils # (Auto) 10 ^3/uL (1.6-8.6) Lymphocytes # (Auto) 10 ^3/uL (0.4-5.4) Monocytes # (Auto) 10 ^3/uL (0-1.3) Differential Total Cells Counted 100.0 (100) Neutrophils % (Manual) 28 (37.0-80.0) Band Neutrophils % (Manual) 0 Lymphocytes % (Manual) 66 (10.0-50.0) Monocytes % (Manual) 4 (0-12) Eosinophils % (Manual) 2 (0-7) Basophils % (Manual) 0 (0.0-2.0) Metamyelocytes % (manual) 0 Myelocytes % (Manual) 0 Promyelocytes % (Manual) 0 Blast Cells % (Manual) 0 Reactive Lymphocytes 0 Platelet Estimate Adequate Creatinine 0.84 mg/dL (0.550-1.02) Glomerular Filtration Rate Calc 77 mL/min (>90) POC Glucose 143 mg/dl (70-106) Vancomycin Level Trough 16.5 ug/mL (5-10) Urine Opiates Screen Pos (NEGATIVE) Urine Fentanyl Screen Neg (NEGATIVE) Urine Barbiturates Screen Neg (NEGATIVE) Urine Phencyclidine Screen Neg (NEGATIVE) Urine Amphetamines Screen Neg (NEGATIVE) Urine Benzodiazepines Screen Pos (NEGATIVE) Urine Cocaine Screen Neg (NEGATIVE) Urine Cannabinoids Screen Neg (NEGATIVE) Test 04/07/25 12:23 04/07/25 07:40 04/06/25 06:05 04/05/25 13:22 Urine Color Yellow (Yellow) Urine Clarity Ex.turbid (Clear) Urine pH 5.5 (5.0-9.0) Urine Specific [place] 1.029 (1.001-1.035) Urine Protein Trace (Negative) Urine Ketones Trace (Negative) Urine Blood 1+ /uL (Negative) Urine Nitrite Negative (Negative) Urine Bilirubin Negative (Negative) Urine Urobilinogen Normal mg/dL (Negative) Urine Leukocyte Esterase 3+ /uL (Negative) Urine RBC 41 /hpf (0 - 4) Urine Microscopic WBC 21 /HPF (0-5) Urine Squamous Epithelial Cells Mod /hpf (<5) Urine Bacteria Mod /hpf (None Seen) Urine Mucus Few (None Seen) Urine Glucose 3+ mg/dL (Normal) Prothrombin Time 10.9 sec (9.3-11.8) Prothrombin Time INR 1.03 (0.9-1.15) Activated Partial Thromboplast Time 40.6 SEC (24.5-34.5) Sodium Level 139 mmol/L (136-145) Potassium Level 4.3 mmol/L (3.5-5.1) Chloride Level 106 mmol/L (98-107) Carbon Dioxide Level 25 mmol/L (20-31) Anion Gap 8 (5-15) Blood Urea Nitrogen 10 mg/dL (9-23) BUN/Creatinine Ratio 11.5 (10.0-20.0) Serum Glucose 174 mg/dL (74-106) Calcium Level 9.0 mg/dL (8.7-10.4) Lactic Acid Level 1.0 mmol/L (0.4-2.0) Total Bilirubin 0.3 mg/dL (0.2-1.0) Aspartate Amino Transferase (AST) 20 U/L (13-40) Alanine Aminotransferase (ALT) 16 U/L (7-40) Alkaline Phosphatase 159 U/L (46-116) Total Protein 6.5 g/dL (5.7-8.2) Albumin 4.0 g/dL (3.2-4.8) Random Vancomycin Level 7.7 ug/mL (5-10) Erythrocyte Sedimentation Rate 16 mm/hr (0-20) Magnesium Level 2.1 mg/dL (1.6-2.6) Direct Bilirubin < 0.1 mg/dL (<0.3) C-Reactive Protein High Sensitivity 0.75 mg/dL (<1.0) B-Type Natriuretic Peptide 264.59 pg/mL (0-100) Other Laboratory Tests 04/09/25 06:26 04/07/25 07:40 Brief Hx & Hospital Course: Cass Real is a 65-year-old female, with past medical history of hyperlipidemia, hypertension, ME with PTCA (01/2025) and leukemia (patient does not remember the type) and DM2. The patient presented to the ED with history of 2 month of right 5th toe pain, 9/10, sharp-like, continue, no radiation. The pain is worsen with movement of the right foot and when she bear weight on it, improve with rest. The patient reports she started noticing her right 5th toe change in color, from red to purple-keily, with worsen pain and swelling, this prompted her visit to the ED. Also, reports that her extremities are bluish in color when it gets cold. Hospital course: Initial CT angiogram of the lower extremity demonstrated long segmental occlusion throughout of the left SFA. Moderate to high-grade short segmental atherosclerotic narrowing within the right distal common iliac artery. Started IV heparin drip and later Underwent Aortogram right lower extremity arteriogram right common iliac angioplasty and stent. Postoperative period was uneventful. Patient was complaining of mild pain in the right 5th toe after the procedure likely secondary to reperfusion pain. Vascular surgeon Dr. Tejada recommended continue aspirin 81 mg daily, Plavix 75 mg daily, atorvastatin 80 mg at HS and follow up with outpatient vascular surgery for further evaluation and management of PAD of left leg. U/A was consistent with urinalysis. Patient was treated with IV vancomycin as per pharmacy, IV cefepime 1 g b.i.d. resumed antihypertensive for management of BP, Lantus 15 units at HS and moderate sliding scale for control of blood sugar. Echo on 02/24 demonstrated EF 35% with moderate diastolic dysfunction. Discharge plan was discussed with the patient and all question were answered. The patient is being discharged to home with cefdinir 300 mg b.i.d. for 5 days ibuprofen 400 mg t.i.d. for 5 days Lasix 20 mg daily , aspirin 81 mg daily, Brilinta 90 mg b.i.d., atorvastatin 80 mg HS, Entresto 24/26 mg 0.5 tab b.i.d., spironolactone 12.5 mg daily, metoprolol succinate 25 mg daily insulin glargine 15 units at bedtime and advised to resume home medications. The patient was also advised to follow up with [place] [facility] on next Friday on 04/11/2025, vascular surgery outpatient in 1-2 weeks and follow up with [facility] for further evaluation and management of chronic leukemia. Physical examination: General Appearance: Alert, Oriented X3, Cooperative, No acute distress HEENT: Atraumatic, PERRLA, EOMI, Mucous membrane moist/pink Respiratory: Clear to auscultation, Normal air movement Cardiovascular: Regular rate, Normal S1, Normal S2, No murmurs, no chest wall tenderness Abdominal: Normal bowel sounds, Soft, No tenderness, No hepatospenomegaly, No masses Extremities: Purplish rt 5th little toes, No clubbing, No cyanosis, No edema, Normal pulses, No tenderness/swelling Skin: No rashes, No breakdown, No significant lesion Neuro: Normal gait, Normal speech, Strength at 5/5 X4 ext, Normal tone, Sensation intact, Cranial nerves 3-12 NL, Reflexes 2+ Psych/Mental Status: Mental status NL, Mood NL Consults/Reason for consult Vascular surgery was consulted Operations or Procedures Bilateral Lower Extremity Arterial Duplex Clinical History: decrease pedal pulses Comparison: US RT LOW EXT ART DUPLEX on DOS: 03/24/25, US BILAT LOW EXT ART DUPLEX on DOS: 02/20/25 Technique: Duplex Doppler evaluation including color Doppler and spectral/pulsed waveform analysis of the lower extremity arteries was performed. Findings: RIGHT: Peak systolic velocities are as follows: INCLUSION TEACHER 132 cm/s Deep femoral 53 cm/s SFA proximal 74 cm/s SFA mid-portion 73 cm/s SFA distal 183 cm/s Popliteal 69 cm/s Posterior tibial 65 cm/s Anterior tibial 22 cm/s Dorsalis pedis 0 cm/s The waveforms are monophasic with diastolic flow however no flow is seen within the dorsalis pedis. LEFT: Peak systolic velocities are as follows: INCLUSION TEACHER 122 cm/s Deep femoral 112 cm/s SFA proximal 42 cm/s SFA mid-portion 0 cm/s SFA distal 70 cm/s Popliteal 54 cm/s Posterior tibial 35 cm/s Anterior tibial 28 cm/s Dorsalis pedis 43 cm/s The waveforms are monophasic with diastolic flow downstream to the mid SFA. IMPRESSION: No flow is seen within the right dorsalis pedis. No flow is seen within the left mid SFA. Examination: CT ANGIO EXTREMITY BILAT CLINICAL HISTORY: blue toe syndrome, r/o arterial emboli Comparison: None Technique: Using helical technique, CT data from the lower abdomen through the toes was obtained during rapid IV contrast infusion. The examination was timed to the arterial system to generate a CT angiographic study. 3D images were generated at an independent work station. Dose reduction techniques included automated exposure control. Radiation Dose Information: CT Dose: CTDI volume is 25.35 mGy. Dose-length product is 2878.49 mGy*cm Contrast: 100 cc Omnipaque 350. Findings: Vascular: On the right there is moderate to high-grade short segmental stenosis within a distal common iliac. Mild atherosclerotic narrowing throughout the external iliac and common femoral. SFA is patent. Popliteal is widely patent. 3-vessel runoff. On the left there is mild irregular atherosclerotic luminal narrowing throughout the common and external iliac. Common femoral is patent. SFA is occluded from its origin. Reopacification of the distal most SFA. Mild atherosclerotic luminal narrowing throughout the popliteal. Faint 3-vessel runoff. Nonvascular: Bladder: Unremarkable. GI System: Diffuse colonic diverticulosis. Lymph nodes: No lymphadenopathy. Peritoneal cavity and surface: No free fluid. No pneumoperitoneum. Soft Tissues: Normal. Reproductive Organs: Normal. Bones: No acute fracture or aggressive osseous lesion. Impression: Long segmental occlusion throughout of the left SFA. Moderate to high-grade short segmental atherosclerotic narrowing within the right distal common iliac artery. Date: 04/06/25 Preop Diagnosis: RIGHT LOWER EXTREMITY LIMB ISCHEMIA Postop Diagnosis: Right 90% common iliac artery stenosis treated with iliac angioplasty and stent to 0 residual stenosis Surgeon: Saad Tejada MD Anesthesiologist: eduardo Anesthesia: Mac Consent: The patient was informed of the risks and benefits of the procedure. These include but are not limited to complications of anesthesia, postoperative infection, incomplete relief of symptoms, recurrence of symptoms, damage to blood vessels, nerves and tendons, deep venous thrombosis, pulmonary embolism and possible need for repeat surgery in the future. Name of Procedure Performed Aortogram right lower extremity arteriogram right common iliac angioplasty and stent Procedure Details Procedure Details: Patient was identified in the preop hold area. She was consented in preop by myself she was brought back to the agriculture laboratory technician placed in the agriculture laboratory technician table in supine position after adequate induction of anesthesia antibiotics and time-out the right and left groins were prepped and draped normal surgical fashion. The left common femoral artery was cannulated after 1% lidocaine was injected above it using a 4 [place]aur[place] micropuncture needle the left common femoral artery was cannulated. It was changed out for a 6 [place]aur[place] sheath. A wire and catheter was placed into the aorta. Aortogram was performed. This demonstrated a widely patent aorta with a left common iliac artery widely patent right common iliac artery has a 90% stenosis. The right lower extremity arteriogram was performed which demonstrated widely patent common femoral artery widely patent profunda and SFA the popliteal artery was widely patent. The lower extremity [id number] vessels there was two-vessel runoff to the foot including the posterior tibial artery being the main artery as well as the peroneal artery. The anterior tibial artery was occluded just after the takeoff. At this point in time a wire was then passed across the common iliac artery stenosis. The 6 [place]auruan sheath was exchanged out for a 45 cm destination sheath. A 7 by 57 mm stent was deployed with a balloon expandable system. The completion angiogram demonstrated no residual stenosis of the right common iliac artery with excellent flow. A left lower extremity arteriogram was performed demonstrating the left common femoral artery was widely patent and acceptable for an Angio- Seal. At this point in time a 6 [place] Angio-Seal was deployed in the left groin. Manual pressure was held and the patient was taken to the recovery room in stable condition. Condition at Discharge: Good Final Diagnosis/Problems List Acute on chronic limb ischemia, s/p angioplasty of rt leg Peripheral artery disease of lower extremity Coronary artery disease, status post PTCA x1 on 01/2025 Chronic systolic heart failure with reduced ejection fraction, EF 35% Uncontrolled type 2 diabetes mellitus, hemoglobin A1c 10.4% Acute complicated cystitis Nicotine dependence Discharge Disposition: Home Discharge Instruct/Medications Diet: Consistent carbohydrate, Cardiac 2g Na,low cholest Activity: No Restrictions, As Tolerated Follow Up/Referral: Follow up with [place] clinic in 1 week. Follow up with vascular surgery outpatient dr. Tejada in 1 to 2 weeks. Follow up with [facility] for leukemia Medications: As per EMR Scheduled Aspirin (Aspirin), 1 TAB PO DAILY, (Reported) Aspirin (Aspirin Low Dose), 1 TAB PO DAILY Atorvastatin Calcium (Atorvastatin Calcium), 1 TAB PO HS Cefdinir (Cefdinir), 1 CAP PO BID Clotrimazole Vaginal (3 Day Vaginal), 2 % VA DAILY Furosemide (Lasix), 1 TAB PO DAILY Glipizide (Glipizide), 10 MG PO BIDWM, (Reported) Ibuprofen Micronized (Ibuprofen), 400 MG PO TID Insulin Glargine (Lantus), 24 UNITS SC QAM Insulin Glargine (Lantus Solostar), 15 UNIT SC HS Insulin Lispro (Human) (Humalog), 10 UNITS SC AC Metoprolol Succinate (Toprol Xl), 1 TAB PO DAILY, (Reported) Metoprolol Succinate (Metoprolol Succinate Er), 1 TAB PO DAILY Sacubitril-Valsartan (Entresto 24-26 mg), 0.5 TAB PO BID Sacubitril-Valsartan (Entresto 24-26 mg), 0.5 TAB PO DAILY Spironolactone (Spironolactone), 12.5 TAB PO DAILY Ticagrelor Base (Brilinta), 90 MG PO BID Ticagrelor Base (Brilinta), 90 MG PO BID Discontinued Medications Amlodipine Besylate (Amlodipine Besylate), 1 TAB PO DAILY, (Reported) Atorvastatin Calcium (Atorvastatin Calcium), 1 TAB PO DAILY, (Reported) Empagliflozin (Jardiance), 10 MG PO DAILY Discharge Statement: "Patient was advised to return to the ER or call 911 if any headaches, dizziness, shortness of breath, chest pain, abdominal pain, bleeding, fevers, or worsening of medical condition. Patient was counseled about treatment plan, medications, possible side effects, patientverbalized understanding. All questions were answered to the best of my ability. This discharge took greater then 30 minutes in planning, reviewing documentation, counseling the patient, and discussing with other team members." ASSESSMENT ASSESSMENT Assessment Acute on chronic limb ischemia, s/p angioplasty of rt leg Date of Service: Apr 09, 2025 Billing Provider: JAMIE ANDINO MD Common Visit Codes: 99853-OFZ/OBS DISCH DAY >30min SUHA ROLDAN RESIDENT Apr 09, 2025 12:10 JAMIE ANDINO MD Apr 10, 2025 09:33
[2025-04-09] MEDS ORDERED: IBUP1TAB4 PO (14:22)
--- NOTE | 2025-04-10 12:37 | DVHSR ---
APPROVED REPORT EXAM: Two-dimensional and M-mode echocardiogram with Doppler and color Doppler. Blood Pressure: 113/53 mmHg INDICATION Chest Pain RISK FACTORS Height: 5'5", Weight: 154 DIMENSIONS LVDd 4.7 (3.8-5.7cm) LA (2D) 4.0 (1.9-4.0cm) Aortic Root 2.8 (2.0-3.7cm) LVDs 3.3 (2.5-4.0cm) LA (MM) (1.9-4.0cm) Aortic Cusp Exc 0.8 (1.5-2.0cm) EF (%) 50.0 (55-70%) Rt. Atrium 3.8 (1.9-4.0cm) Asc. Aorta cm IVSd 1.3 (0.7-1.1cm) RV (D) (1.8-2.4cm) Mitral Valve Mitral Mitral Stenosis E wave 1.05m/s MV Mean GR. mmHg A wave 0.55m/s MV Peak GR. mmHg E/A ratio 1.9 2D MVA cm2 DECEL Time 153ms PRESS 1/2 Time ms Aortic Valve Aortic Valve Aortic Stenosis V1 1.00m/s AO Mean GR. 7mmHg V2 1.63m/s AO Peak GR. 11mmHg LVOT Diameter 1.9 (1.8-2.4cm) Doppler FABI 1.74cm2 Pulmonic Valve V2 1.12m/s Other Information Quality : Technically Limited Rhythm : Technically limited study due to body habitus. Conclusion ENTIRE ANTERIOR AND APICAL WALL HYPOKINESIS LV EF IS 35% PLUS MODERATE DEGREE LVH AND MODERATE DEGREE LV DIASTOLIC DYSFUNCTION SYSTOLIC AND DIASTOLIC LV DYSFUNCTION MODERATE DEGREE MR NORMAL VALVES NO EFFUSION
== END 2025-04-09 16:39 | disposition home or self-care (01) | DRG 253 ==
LOC: ER 12:16 → OVERFLOW 21:02 → TELE-WESTW 23:56 → WEST WING 04-08 11:10
PROVIDERS: ADMIT Internal Medicine; ATTEND Internal Medicine
PROC: 047C3DZ Dilation of Right Common Iliac Artery with Intraluminal Device, Percutaneous Approach (ICD-10-PCS; principal; 2025-04-06)
PROC: B41DYZZ Fluoroscopy of Aorta and Bilateral Lower Extremity Arteries using Other Contrast (ICD-10-PCS; 2025-04-06)
DX: E11.51 Type 2 diabetes mellitus with diabetic peripheral angiopathy without gangrene (principal); I50.22 Chronic systolic (congestive) heart failure; I75.021 Atheroembolism of right lower extremity; N30.00 Acute cystitis without hematuria; I11.0 Hypertensive heart disease with heart failure; E11.65 Type 2 diabetes mellitus with hyperglycemia; I74.5 Embolism and thrombosis of iliac artery; E78.5 Hyperlipidemia, unspecified; F17.210 Nicotine dependence, cigarettes, uncomplicated; I25.10 Atherosclerotic heart disease of native coronary artery without angina pectoris; I70.221 Atherosclerosis of native arteries of extremities with rest pain, right leg; Z90.49 Acquired absence of other specified parts of digestive tract; Z90.710 Acquired absence of both cervix and uterus; Z95.5 Presence of coronary angioplasty implant and graft; I25.2 Old myocardial infarction; Z85.6 Personal history of leukemia; Z71.6 Tobacco abuse counseling; Z80.8 Family history of malignant neoplasm of other organs or systems; Z80.42 Family history of malignant neoplasm of prostate; Z79.899 Other long term (current) drug therapy; Z79.4 Long term (current) use of insulin; Z79.02 Long term (current) use of antithrombotics/antiplatelets
CPT/HCPCS: 36415; 37221; 71045; 73630; 75716; 80048; 80053; 80076; 80202; 80307; 81001; 82565; 82962; 83605; 83735; 83880; 85007; 85027; 85610; 85652; 85730; 86141; 87040; 87081; 87086; 93005; 93306; 93925; 96365; 96366; 96368; G0378; J1815; J2250; Q9967